=== PATIENT | female | born 1960 | race Caucasian/White ===

== ENCOUNTER 2017-03-04 08:31 | Inpatient (IN) | payer OTHER, MEDICAID ==
--- NOTE | 2017-03-04 08:30 | EDPHY ---
H & P HPI/ROS: CHIEF COMPLAINT: Altered mental status HISTORY OF PRESENT ILLNESS: This patient is a 56 year old female with history of diabetes and chronic bilateral foot wounds arriving emergently via EMS from [facility] for evaluation of altered mental status and possible ventricular tachycardia. Per EMS report, she was found on the floor this morning, unresponsive except for moaning with painful stimuli. She was last seen normal yesterday evening, and is generally awake, alert, and oriented. The patient stopped breathing spontaneously en route to the ambulance, and EMS crews administered 15 LPM O2 via bag valve mask. On exam, they noted a fentanyl patch on her left chest. They removed the fentanyl patch and and administered 2 doses of Narcan. She became more responsive after the Narcan and began breathing spontaneously and adequately. Vitals in transport were BP 168/125, HR 124 sinus tachycardia, BGL 297. She began breathing unassisted on arrival to the emergency department, but remains unresponsive to verbal stimuli, with nonverbal utterances. She is generally on 4 LMP O2 maintenance. HPI obtained primarily from [facility] nurse's phone report and EMS report. REVIEW OF SYSTEMS: Unobtainable due to patient's altered mental status. - Medical/Surgical History PMH: 1. Type II diabetes mellitus. 2. Chronic bilateral foot wounds. 3. Morbid obesity. 4. Hypertension 5. COPD 6. Chronic hypoxemic respiratory failure 7. Chronic kidney disease (baseline creatinine about 1.4) 8. Chronic pain, narcotic dependency. 9. Sarcoidosis, recent Proteus bacteremia (09/2016) - Social History Additional Social History: Lives at [facility]. No tobacco, alcohol, or illicit drug use. Formerly homeless. - Physical Exam Exam: General Appearance: eyes closed, agitated, yawning Eyes: Pupils equal and round, 3mm, no conjunctival pallor or injection ENT, Mouth: Mucous membranes dry Neck: Normal inspection Respiratory: Lungs are clear to auscultation anteriorly Cardiovascular: Regular tachycardia Gastrointestinal: Abdomen is obese, no apparent tenderness Neurological: Unresponsive to verbal stimuli common nonverbal, moves all extremities, strong throughout Skin: Warm and dry, pale Extremities: Bulky dressing on right foot and ankle Psychiatric: Unable to determine Constitutional: Initial Vital Signs Temperature (C) 38.8 C H 03/04/17 08:31 Heart Rate 150 H 03/04/17 08:31 Respiratory Rate 28 H 03/04/17 08:31 Blood Pressure 146/91 H 03/04/17 08:31 O2 Sat (%) 97 03/04/17 08:31 O2 Delivery Mode Oxymask O2 (L/minute) 101 Allergies/Adverse Reactions: No Known Allergies Allergy (Verified 11/26/16 04:59) Home Medications: Medication Instructions Recorded Acetaminophen [Tylenol 325mg (*)] 325 mg PO Q6 PRN 11/01/16 DULoxetine [Cymbalta 30 MG (*)] 30 mg PO BID 11/01/16 Gabapentin [Neurontin 300 MG (*)] 300 mg PO BID 11/01/16 HYDROmorphone HCL [Dilaudid 4 mg 10 mg PO TUTHSA PRN 11/01/16 (*)] Insulin Detemir [Levemir] 50 unit SQ DAILY 11/01/16 Levothyroxine [Synthroid 200 mcg 200 mcg PO DAILY 11/01/16 (*)] Losartan Potassium [Cozaar 25 mg 25 mg PO DAILY 11/01/16 (*)] Pregabalin [Lyrica 50mg (*)] 50 mg PO TID 11/01/16 clonazePAM [Klonopin (*)] 0.5 mg PO BID PRN 11/01/16 fentaNYL [Duragesic 75 MCG Patch 75 mcg TD Q72H 11/01/16 (*)] traZODone [traZODONE 50MG (*)] 50 mg PO HS 11/01/16 Furosemide [Lasix 20 MG (*)] 20 mg PO BID #60 tab 11/12/16 Alteplase [Cathflo Activase 2 mg 2 mg IVP DAILY PRN 03/04/17 (*)] Aspirin [Aspirin 81mg (*)] 81 mg PO DAILY 03/04/17 Bisacodyl [Dulcolax] 10 mg RC DAILY PRN 03/04/17 Calcium Carbonate [Tums 500MG (*)] 1,000 mg PO Q4H PRN 03/04/17 Diclofenac Sodium 1% [Voltaren Gel 2 gm TP QID 03/04/17 (*)] Gabapentin [Neurontin 400 MG (*)] 400 mg PO BID 03/04/17 HYDROmorphone HCL [Dilaudid 4 mg 8 mg PO Q4H PRN 03/04/17 (*)] Ibuprofen [Motrin (*)] 600 mg PO Q8H PRN 03/04/17 Insulin Detemir [Levemir] 63 unit SQ HS 03/04/17 Insulin Lispro [humALOG LISPRO 100 5 unit SC TIDMEAL 03/04/17 units/ml (*)] Insulin Lispro [humALOG LISPRO 100 5 unit SC TIDMEAL PRN 03/04/17 units/ml (*)] Ipratropium/Albuterol [Duoneb (*)] 3 ml IH Q6H PRN 03/04/17 Magnesium Hydroxide [Milk of 30 ml PO DAILY PRN 03/04/17 Magnesia] Nystatin Powder [Mycostatin Powder] 1 abi TP Q8H PRN 03/04/17 Omeprazole Magnesium [Prilosec Otc] 20 mg PO DAILY 03/04/17 Phenylephrine/Shk Lv/Mo/Pet,Wh 1 abi NH Q6H PRN 03/04/17 [Preparation H Oint] Polyethylene Glycol 3350 [Miralax 17 gm PO BID PRN 03/04/17 17 gm (*)] Promethazine HCl [Phenergan 25mg 25 mg PO BID PRN 03/04/17 (*)] Sennosides/Docusate Sodium 2 tab PO BID PRN 03/04/17 [Senna-Docusate Sodium Tablet] Medical Decision Making - Diagnostics EKG Interpretation: EKG interpreted by me reveals sinus tachycardia, rate 133, no ST/T changes. Interpretation: sinus tachycardia, otherwise normal EKG Imaging: I viewed and interpreted images myself ED Course/Re-evaluation: 08:31 Met EMS at bedside. This patient presents with fever and altered mental status, most likely secondary to sepsis and delirium, source to be determined. Narcan improved respiratory status, now tachypneic, maintaining O2 sat 100% on 15l O2, will wean O2 as tolerated. Plan for labs including CBC, BMP, lactic, bilirubin, PTPTT, UA, flu swab, and blood cultures. Plan to administer 650mg Tylenol per rectum. Plan for Negro catheter placement. 09:04 I-stat reviewed. Chest x-ray reviewed. Negative for evidence of focal pneumonia. 09:28 Lactic acid elevated at 3.8. Initiated sepsis protocol, meets severe sepsis protocol. Will administer fluids per protocol and repeat lactic acid. 09:30 Right foot bandage removed. There is an open wound on the lateral aspect of the foot, with surrounding erythema and warmth. A wound culture was drawn. This is the likely source of infection. In review of her past medical record, the abscess on the left lower extremity grew G/C strep, sensitive to ceftriaxone. For this reason, ceftriaxone 1 g IV given. 09:41 EKG shows sinus tachycardia, rate 133. SBP remained greater than 90 throughout her ED stay. Mentation has not improved. Continues to be unresponsive to verbal stimuli. This presentation is similar to past presentation of severe sepsis. I do not feel that neuro imaging is indicated at this point. 09:45 consulted with hospitalist service. Dr. Cabrales accepts admission to ICU. 10:15 Repeat lactic acid 1.4. Plan to discharge to floor. Differential Diagnosis: Differential diagnosis includes pyelonephritis, cholecystitis, influenza, cellulitis, pneumonia, abscess, meningitis. Critical Care Time: I spent a total of 40 minutes of critical care time in obtaining history via EMS /NH, performing a physical exam, bedside monitoring of interventions, collecting and interpreting tests and discussion with consultants but not including time spent performing procedures. - Data Points Laboratory Results: Laboratory Results 03/04/17 08:50 03/04/17 08:50 03/04/17 08:55 POC Hgb 9.5 gm/dL L gm/dL (12.6-16.3) POC Hct 28 % L % (38-47) POC Sodium 141 mEq/L mEq/L (134-144) POC Potassium 4.2 mEq/L mEq/L (3.3-5.0) POC Chloride 99 mEq/L mEq/L (97-110) POC BUN 46 mg/dL H mg/dL (7-23) POC Creatinine 1.8 mg/dL H mg/dL (0.6-1.0) POC Glucose 285 mg/dL H mg/dL (70-100) Microbiology Results: MICROBIOLOGY 03/04/17 08:50 Blood Blood Culture - Preliminary Streptococcus Pyogenes Grp A 03/04/17 08:50 Blood Blood Culture - Preliminary Streptococcus Pyogenes Grp A 03/04/17 08:50 Blood Blood Panel (PCR) - Final Strep Pyogenes Group A 03/04/17 09:30 Foot - Swab Gram Stain - Final 03/04/17 09:30 Foot - Swab Wound Culture - Preliminary Proteus Mirabilis MRSA Streptococcus Pyogenes Grp A 03/04/17 09:14 Urine,Catheterized Urine Culture - Preliminary Medications Given: Acetaminophen (Tylenol) 650 mg PO Q4 PRN PRN Reason: Pain, Mild/Fever, Can Take PO Stop: 08/31/17 10:33 Last Admin: 03/05/17 13:12 Dose: 650 mg Acetaminophen (Tylenol Rectal) 650 mg NH Q4 PRN PRN Reason: Pain, Mild/Fever,Can't Take PO Stop: 08/31/17 10:33 Last Admin: 03/04/17 22:27 Dose: 650 mg Aspirin (Aspirin) 81 mg PO DAILY [facility] Stop: 09/01/17 08:59 Last Admin: 03/05/17 11:17 Dose: 81 mg Clonazepam (Klonopin) 0.5 mg PO BID PRN PRN Reason: TEARFUL EPISODES Stop: 08/31/17 15:32 Last Admin: 03/05/17 11:16 Dose: 0.5 mg Diclofenac Sodium (Diclofenac Sodium 1% Gel) 2 gm TP QID [facility] Stop: 08/31/17 15:59 Last Admin: 03/05/17 12:27 Dose: 2 gm Duloxetine HCl (Cymbalta) 30 mg PO BID [facility] Stop: 08/31/17 20:59 Last Admin: 03/05/17 11:17 Dose: 30 mg Fentanyl (Duragesic) 75 mcg TD Q72H [facility] Stop: 03/15/17 13:59 Last Admin: 03/05/17 14:39 Dose: 75 mcg Gabapentin (Neurontin) 300 mg PO BID [facility] Stop: 08/31/17 20:59 Last Admin: 03/05/17 11:16 Dose: 300 mg Gabapentin (Neurontin) 400 mg PO BID [facility] Stop: 08/31/17 20:59 Last Admin: 03/05/17 11:16 Dose: 400 mg Hydromorphone HCl (Dilaudid) 8 mg PO Q4H PRN PRN Reason: CHRONIC PAIN Stop: 03/15/17 13:52 Last Admin: 03/05/17 14:38 Dose: 8 mg Sodium Chloride (Ns) 1,000 mls @ 150 mls/hr IV CONT [facility] Stop: 08/31/17 10:44 Last Admin: 03/04/17 11:58 Dose: 1,000 mls Ceftriaxone Sodium 2 gm/ (Dextrose) 50 mls @ 100 mls/hr IV DAILY JUDE PRN Reason: Protocol Stop: 04/04/17 09:29 Last Admin: 03/05/17 10:02 Dose: 50 mls Insulin Glargine (Lantus Syringe) 30 units SC HS [facility] Stop: 08/31/17 20:59 Last Admin: 03/04/17 22:13 Dose: 30 units Insulin Glargine (Lantus Syringe) 25 units SC DAILY [facility] Stop: 09/01/17 08:59 Last Admin: 03/05/17 12:28 Dose: Not Given Insulin Human Regular (Humulin R) 0 unit SC Q6H JUDE PRN Reason: Protocol Stop: 08/31/17 11:29 Last Admin: 03/05/17 11:31 Dose: 6 units Levothyroxine Sodium (Synthroid) 200 mcg PO DAILY [facility] Stop: 09/01/17 08:59 Last Admin: 03/05/17 11:16 Dose: 200 mcg Ondansetron HCl (Zofran) 4 mg IVP Q4 PRN PRN Reason: Nausea/Vomiting, Can't Take PO Stop: 08/31/17 10:33 Last Admin: 03/05/17 11:38 Dose: 4 mg Pantoprazole Sodium (Protonix) 40 mg PO DAILY [facility] Stop: 09/01/17 08:59 Last Admin: 03/05/17 11:16 Dose: 40 mg Pregabalin (Lyrica) 50 mg PO TID [facility] Stop: 08/31/17 15:59 Last Admin: 03/05/17 11:16 Dose: 50 mg Trazodone HCl (Trazodone) 50 mg PO HS [facility] Stop: 08/31/17 20:59 Last Admin: 03/04/17 22:14 Dose: Not Given Discontinued Medications Acetaminophen (Tylenol) 650 mg PO EDNOW ONE Stop: 03/04/17 08:41 Last Admin: 03/04/17 09:03 Dose: 650 mg Enoxaparin Sodium (Lovenox) 40 mg SC DAILY [facility] Stop: 09/01/17 08:59 Last Admin: 03/05/17 11:17 Dose: 40 mg Sodium Chloride (Ns) 1,000 mls @ 0 mls/hr IV ONCE ONE; Wide Open PRN Reason: Protocol Stop: 03/04/17 08:41 Last Admin: 03/04/17 09:03 Dose: 1,000 mls Sodium Chloride (Ns) 3,700 mls @ 7,400 mls/hr 30 ml/kg infuse over 30 min ( 3700 ml) IV EDNOW ONE PRN Reason: Protocol Stop: 03/04/17 09:51 Last Admin: 03/04/17 11:39 Dose: 3,700 mls Ceftriaxone Sodium/Dextrose (Rocephin 1 Gm (Premix)) 50 mls @ 100 mls/hr IV EDNOW ONE PRN Reason: Protocol Stop: 03/04/17 10:04 Last Admin: 03/04/17 09:50 Dose: 50 mls Vancomycin HCl 1.5 gm/ (Dextrose) 250 mls @ 166.667 mls/hr IV ONCE ONE Stop: 03/04/17 12:29 Last Admin: 03/04/17 11:39 Dose: 250 mls Meropenem 1 gm/ Sodium (Chloride) 120 mls @ 120 mls/hr IV Q8HRS JUDE PRN Reason: Protocol Stop: 04/03/17 11:59 Last Admin: 03/05/17 05:18 Dose: 120 mls Insulin Human Regular (Humulin R) 0 unit SC ACHS JUDE PRN Reason: Protocol Stop: 08/31/17 11:29 Last Admin: 03/04/17 12:54 Dose: 8 units Point of Care Test Results: 03/04/17 08:55 POC Sodium 141 POC Potassium 4.2 POC Chloride 99 POC BUN 46 H POC Creatinine 1.8 H POC Glucose 285 H Departure - Departure Disposition: [facility] Acute Clinical Impression: Cellulitis of foot, right, Severe sepsis Condition: Serious Report Scribed for: Arminda Ladd Report Scribed by: Joselyn Ghotra Date of Report: 03/04/17 Time of Report: 08:30 Physician Review and Approval Statement: 03/04/17 08:30 Portions of this note were transcribed by a medical practice administrator. I personally performed a history, physical exam, medical decision making, and confirmed accuracy of information the transcribed note.
[2017-03-04] MEDS ORDERED: NS 1,000 ML IV ONE (08:40)
[2017-03-04] MEDS ORDERED: ACETAMINOPHEN 325 MG TAB PO ONE (08:40)
[2017-03-04 09:07] LABS: % IMMATURE GRANULYOCYTES 1.1 % (0.0-1.1); ABSOLUTE IMMATURE GRANULOCYTES 0.14 10^3/uL (0.00-0.10); ADD DIFF? NO; ADD MORPH? NO; ADD SCAN? NO; ATYPICAL LYMPHOCYTE FLAG 0 (0-99); FRAGMENT RBC FLAG 0 (0-99); HEMATOCRIT 27.4 % (38.0-47.0); HEMOGLOBIN 8.6 g/dL (12.6-16.3); LEFT SHIFT FLG 20 (0-99); LIPEMIA HEMOLYSIS FLAG 80 (0-99); MEAN CELL HEMOGLOBIN 26.8 pg (27.9-34.1); MEAN CELL HEMOGLOBIN CONCENTR. 31.4 g/dL (32.4-36.7); MEAN CELL VOLUME 85.4 fL (81.5-99.8); MEAN PLATELET VOLUME 9.6 fL (8.7-11.7); PLATELET CLUMPS FLAG 0 (0-99); PLATELET COUNT 238 10^3/uL (150-400); RED BLOOD CELL COUNT 3.21 10^6/uL (4.18-5.33); RED CELL DISTRIBUTION WIDTH 14.5 % (11.5-15.2)
[2017-03-04 09:17] LABS: ANION GAP 17 mEq/L (8-16); BILIRUBIN,TOTAL 0.5 mg/dL (0.1-1.4); CALCIUM 9.2 mg/dL (8.5-10.4); CARBON DIOXIDE 26 mEq/l (22-31); CHLORIDE 98 mEq/L (97-110); CREATININE 1.6 mg/dL (0.6-1.0); GLOMERULAR FILTRATION RATE 33; GLUCOSE 282 mg/dL (70-100); POTASSIUM 4.3 mEq/L (3.5-5.2); SODIUM 141 mEq/L (134-144)
[2017-03-04 09:21] LABS: INR 1.1 (0.83-1.16); PROTIME(PATIENT) 14.1 SEC (12.0-15.0)
[2017-03-04 09:22] LABS: APTT 27.8 SEC (23.0-38.0)
[2017-03-04] MEDS ORDERED: NS IV ONE (09:22)
[2017-03-04 09:26] LABS: COLOR YELLOW; LEUKOCYTE ESTERASE,URINE NEGATIVE (NEGATIVE); NITRITE,URINE NEGATIVE (NEGATIVE)
--- NOTE | 2017-03-04 09:43 | CPEKG ---
Heart Rate: 133 RR Interval: 451 P-R Interval: 152 QRSD Interval: 76 QT Interval: 284 QTC Interval: 423 P [place]: 50 QRS [place]: 19 T Wave [place]: 70 EKG Severity - OTHERWISE NORMAL ECG - EKG Impression: SINUS TACHYCARDIA Electronically Signed By: Arminda Ladd 04-Mar-2017 15:02:15
[2017-03-04 09:59] LABS: LACGHOST ORDER
[2017-03-04 10:05] LABS: BACTERIA TRACE /hpf (NONE SEEN); MUCUS TRACE /lpf (NONE-1+)
[2017-03-04] MEDS ORDERED: VANCOMYCIN HCL/NORMAL SALINE 250 ML IV ONE (10:32)
[2017-03-04] MEDS ORDERED: D50W 25 GM/50 ML SYR IVP PRN (10:36)
[2017-03-04] MEDS ORDERED: VANCOMYCIN 1.5 GM in D5W 250 ML IV ONE (11:00)
[2017-03-04] MEDS ORDERED: INSULIN REGULAR HUMAN 100 UNIT/ML SC SCH (11:30)
[2017-03-04] MEDS ORDERED: LIDOCAINE 1% 300 MG/30 ML SDV ONE (11:43)
[2017-03-04 11:44] LABS: MIXED VENOUS O2 SATURATION 68 % (65-75)
[2017-03-04] MEDS ORDERED: NA BICARBONATE 50 MEQ/50 ML VIAL ONE (11:44)
[2017-03-04] MEDS: NS 1,000 ML IV SCH (11:58)
[2017-03-04] MEDS: MEROPENEM 1 GM in NS 100 ML IV SCH ×3 (12:40→22:15)
[2017-03-04 12:54] LABS: MIXED VENOUS O2 SATURATION 72 % (65-75)
--- NOTE | 2017-03-04 14:43 | GHP ---
[f rep st] HISTORY AND PHYSICAL DATE OF ADMISSION: 03/04/2017 CHIEF COMPLAINT: Altered mental status. HISTORY OF PRESENT ILLNESS: The patient is a 56-year-old female, resident of [facility], who was found unresponsive on the floor moaning at [facility] this morning. She was last seen last night with a normal mental status. EMS was called. On route in the ambulance, she stopped breathing and r equired 15 L of oxygen, got a dose of Narcan and her fentanyl patch was removed, and she had return o f spontaneous respirations. She remains unresponsive at this time and no further history is availabl e. They did take off her right foot bandage in the emergency room and thought that her open wound on her right heel may be infected and a culture was obtained. PAST MEDICAL HISTORY: 1. Diabetes type 2. 2. Charcot joints. 3. Chronic calcaneal wound with previous osteomyelitis. 4. Morbid obesity. 5. Hypertension. 6. COPD 4 L. 7. Chronic kidney disease. Baseline creatinine 1.3. 8. Continuous narcotic dependency. 9. Sarcoidosis. MEDICATIONS: Please see computerized record for full detailed list. ALLERGIES: No known drug allergies. SOCIAL HISTORY: She lives in [facility]. Further social history is unavailable at this time due to patient's obtundation. REVIEW OF SYSTEMS: Unobtainable due to obtundation. FAMILY HISTORY: Unobtainable due to obtundation. PHYSICAL EXAMINATION: GENERAL: This is a well-developed, well-nourished female in no acute distress . She looks very ill, lying in bed, unresponsive, breathing heavily, high fever. Arouses only secon ds to a deep sternal rub. VITALS: Temp is 40.4, pulse 130, blood pressure 98/57, saturating 97% on 5 L. HEENT: Eyes: Normal conjunctivae. Pupils react to light. ENT: Normal ears, nose. Unable t o assess hearing. Oropharynx is dry. NECK: Trachea midline. No thyromegaly. CHEST: Increased re spiratory effort. Respiratory rate is 42. Lungs are clear to auscultation bilaterally. CARDIOVASCU LAR: Tachycardic, no murmur, no lower extremity edema. ABDOMEN: Soft, nontender. No hepatomegaly. SKIN: Her right calcaneal wound looks quite good. It has a clean base. There is absolutely no dr coffey. The surrounding skin is without erythema or warmth. MUSCULOSKELETAL: No cyanosis or clubbi ng. Strength decreased throughout, consistent with obtundation cranial nerves also unable to assess as well as sensation. PSYCH: Obtunded. Arouses only seconds to deep sternal rub, but does appear t o move all extremities briefly. There is no posturing. LABS: White count 12.8, hematocrit 27.4, platelets 238. Sodium 141, potassium 4.3, chloride 98, bic arb 26, BUN 49, creatinine 1.6, glucose 282. Urinalysis is negative. Lactate initially 2.8, coming down to 1.7 after hydration. EKG viewed by me. My personal interpretation is sinus tachycardia. Ch est x-ray is negative. MEDICAL RECORDS REVIEW: She has been hospitalized here many times, typically related to infection st emming from her foot wound including previous osteomyelitis. ASSESSMENT/PLAN: 1. Severe sepsis. The patient is critically ill. Although her blood pressure is currently still st able, she is extremely toxic appearing and being admitted to intensive care unit. She has extraordin arily high fever and completely unresponsive. Blood cultures are pending. I started her on empiric vancomycin and meropenem. I have spoken with Dr. Blue, who knows her well. Her lactate is improvi ng after hydration. Source of infection is unclear. Chest x-ray and urinalysis are negative. Her f oot wound looks actually quite good with a clean base. No drainage. No evidence of surrounding cell ulitis. According to Dr. Blue, however, she has become septic from this foot wound many times in t he past despite the wound itself not looking terribly bad, so it still is considered as a possible so urce. Given her severe altered mental status and persistent extraordinarily high fever without a maureen ar source, I do feel obliged to do a lumbar puncture to rule out acute bacterial meningitis. We will check a head CT prior to lumbar puncture. She has received her sepsis fluid bolus and will continue intravenous fluid at a good rate. 2. [id number] respiratory failure status post acute respiratory arrest. She did respond to Na rcan. She is now breathing just fine on her own. It is unclear to what degree this was narcotics ve rsus acute infection. 3. Metabolic encephalopathy clearly due to infection, although it is unclear if it is secondary to s epsis versus a primary central nervous system infection. As discussed above, head CT and lumbar punc ture pending. 4. Charcot foot deformity with chronic calcaneal foot wound. Previous osteomyelitis at this site. Rule out infection as above. Wound Care to consult. 5. Diabetes type 2, poorly controlled in the past. We will put her on insulin sliding scale. 6. Morbid obesity. Body mass index 43. 7. Chronic obstructive pulmonary disease. I suspect she may also have an element of obesity hypoven tilation syndrome. She is back to her baseline 4 L. 8. [id number] renal failure. Baseline creatinine 1.3. Anticipate this will improve with intr avenous fluids. 9. Continuous narcotic dependency. We will continue to hold narcotics due to respiratory depression as above. CODE STATUS: Full unless you get documentation from Keisha Coulter stating otherwise. ADMISSION: To inpatient. She is critically ill. Clearly greater than 2 midnights will be required. DEEP VENOUS THROMBOSIS PROPHYLAXIS: She is high risk. Will place her on subcu Lovenox. Critical care time spent is 1 hour. /[id number]/MODL
[2017-03-04 15:08] LABS: CSF APPEARANCE CLEAR (CLEAR); CSF COLOR COLORLESS (COLORLESS); CSF SUPERNATANT COLORLESS (COLORLESS); WBC, CSF 0 /mm3 (0-5)
[2017-03-04 15:13] LABS: PROTEIN, CSF 75 mg/dL (12-60)
[2017-03-04 16:11] LABS: BICARBONATE 26 mEq/L (22-26); MEASURED OXYGEN SATURATION 98 % (92-95); PCO2 45 mmHg (34-38); PO2 109 mmHg (65-75); TCO2 27 mEq/L (23-27)
[2017-03-04] MEDS: PREGABALIN 50 MG CAP PO SCH ×2 (16:24→23:19)
[2017-03-04] MEDS: DICLOFENAC SODIUM 1% 100 GM GEL TP SCH ×2 (16:24→22:42)
[2017-03-04] MEDS: INSULIN REGULAR HUMAN 100 UNIT/ML SC SCH ×2 (17:43→22:27)
[2017-03-04] MEDS: ACETAMINOPHEN 650 MG SUPP PR PRN ×2 (17:43→22:27)
--- NOTE | 2017-03-04 19:58 | GCON ---
[f rep st] CONSULTATION INFECTIOUS DISEASE CONSULTATION DATE OF CONSULTATION: 03/04/2017 REFERRING PHYSICIAN: Ame Banda MD REASON FOR CONSULTATION: Sepsis. HISTORY OF PRESENT ILLNESS: A 56-year-old woman with a history of diabetes and chronic right lower extremity diabetic ulcer associated with Charcot foot, who is well known to the ID service with 5 episodes of bacteremia since September of 2014 with multiple bouts interceded of lower extremity cellulitis as well. The patient was transferred emergently to [facility] from [facility] with altered mental status and tachycardia. In the EMS report, she was found down on the floor unresponsive except for moaning to painful stimuli. She is maintained on 4 L O2 chronically, but required 15 L to get her SATs up. They administered 2 doses of Narcan with minimal response. She was hypertensive and tachycardic in transport with an elevated blood glucose level. Additional history is not available as patient is remains altered. As a part of her workup, the patient underwent a head CT which showed no focal acute abnormalities and subsequently a lumbar puncture due to confusion which had a cell count of 0. The patient was given 1 dose of ceftriaxone and subsequently started on meropenem and IV vancomycin. PAST MEDICAL HISTORY: 1. Type 2 diabetes, chronic lower extremity foot wounds, right worse than left. 2. Morbid obesity. 3. Hypertension. 4. COPD with chronic hypoxic respiratory failure, chronic renal insufficiency, baseline creatinine 1.4, chronic narcotic dependency, multiple episodes of bacteremia including group C/G Streptococcus October of 2016, Proteus in September of 2016, actinotignum schaalii in July 2016, high-grade Staph epidermidis bacteremia February of 2016, group C/G bacteremia in September of 2014. 5. Osteomyelitis of the right calcaneus. PAST SURGICAL HISTORY: C section, cholecystectomy, lymph node revision and tonsillectomy. SOCIAL HISTORY: She lives at [facility] chronically, formally homeless. No tobacco, alcohol, or illicit drug use. FAMILY HISTORY: Noncontributory. REVIEW OF SYSTEMS: Not obtainable due to sepsis. PHYSICAL EXAM: VITAL SIGNS: BP 130/60, heart rate 117, respiratory rate 22-37 on 5 L O2 with a SAT of 100%, temperature 39.4. GENERAL: This is a pale obese woman lying in bed who opens her eyes to verbal stimulation, but other than that is unresponsive. She is intermittently snoring. HEENT: Oropharynx is extremely dry. Poor dentition. NECK: Supple. No meningismus. CARDIOVASCULAR : Tachycardic. Regular rate. CHEST: Clear to auscultation bilaterally. ABDOMEN: Morbidly obese, soft, nontender. EXTREMITIES: Right lower extremity with a chronic fairly well healed wound with granulation tissue. One area of fluctuance at the 10 o'clock position without drainage. She has faint cellulitis very consistent with erysipelas to the knee with associated warmth ALLERGIES: NKDA. IMMUNIZATIONS: The patient received a Pneumovax in June of 2011. MEDICATIONS: Tylenol, aspirin 81 mg, Klonopin 0.5 mg p.r.n., diclofenac, Cymbalta, Lovenox, Neurontin, insulin, meropenem 1 g IV q (February 2016), Zofran, Lyrica, trazodone, and saline. She has received 4 L of IV fluids since admission. LABORATORY DATA: Creatinine 1.6. White count 12.8, hematocrit 27, platelets of 238. Influenza PCR was negative. CSF: WBC 0, RBC 0, glucose 141, total protein 75. IMAGING: CT head as per HPI. Chest x-ray showed no focal infiltrates with poor inspiratory effort. ASSESSMENT: This is a 56-year-old woman with recurrent multiple bouts of sepsis due to bacteremia with source of her right lower extremity. Severe Sepsis today likely due to recurrent right lower extremity cellulitis, chronic wound and possible underlying foot abscess or OM. 1. Severe Sepsis 2. RLE cellulitis 3. Chronic diabetic foot ulcer R heal 4. Acute on chronic renal insufficiency 5. Poorly controlled DM RECOMMENDATIONS: 1. Reasonable to start with broad coverage with meropenem until further ID assessed. The patient, in the past with 2 episodes of streptococcal bacteremia and 1 with Staph epi. Therefore, coverage with Merrem and vancomycin until additional data is assessed is appropriate. Will check a random vancomycin level with a.m. labs in light of worsening renal insufficiency. 2. Will discuss possible aspiration of fluctuant area with surgical team vs imaging. 3. Follow blood and wound cultures. Thank you for this consultation. Will continue to follow on a daily basis. /[id number]/MODL MTDD
[2017-03-04] MEDS ORDERED: INSULIN DETEMIR SQ SCH (21:00)
[2017-03-04] MEDS ORDERED: INSULIN GLARGINE 100 UNITS/ML SYRINGE SC SCH ×2 (21:00)
[2017-03-04] MEDS: GABAPENTIN 400 MG CAP PO SCH (22:14)
[2017-03-04] MEDS: GABAPENTIN 300 MG CAP PO SCH (22:14)
[2017-03-04] MEDS: traZODone 50 MG TAB PO SCH (22:14)
[2017-03-04] MEDS: DULoxetine 30 MG CAP PO SCH (22:14)
[2017-03-05] MEDS: INSULIN REGULAR HUMAN 100 UNIT/ML SC SCH ×4 (05:17→23:58)
[2017-03-05] MEDS: MEROPENEM 1 GM in NS 100 ML IV SCH (05:18)
[2017-03-05] MEDS: DICLOFENAC SODIUM 1% 100 GM GEL TP SCH ×4 (05:19→20:06)
[2017-03-05 05:28] LABS: % IMMATURE GRANULYOCYTES 0.8 % (0.0-1.1); ABSOLUTE IMMATURE GRANULOCYTES 0.09 10^3/uL (0.00-0.10); ADD DIFF? NO; ADD MORPH? NO; ADD SCAN? NO; ATYPICAL LYMPHOCYTE FLAG 0 (0-99); FRAGMENT RBC FLAG 0 (0-99); HEMATOCRIT 23.5 % (38.0-47.0); HEMOGLOBIN 7.3 g/dL (12.6-16.3); LEFT SHIFT FLG 70 (0-99); LIPEMIA HEMOLYSIS FLAG 80 (0-99); MEAN CELL HEMOGLOBIN 26.8 pg (27.9-34.1); MEAN CELL HEMOGLOBIN CONCENTR. 31.1 g/dL (32.4-36.7); MEAN CELL VOLUME 86.4 fL (81.5-99.8); MEAN PLATELET VOLUME 9.5 fL (8.7-11.7); PLATELET CLUMPS FLAG 0 (0-99); PLATELET COUNT 192 10^3/uL (150-400); RED BLOOD CELL COUNT 2.72 10^6/uL (4.18-5.33); RED CELL DISTRIBUTION WIDTH 14.6 % (11.5-15.2)
[2017-03-05 06:22] LABS: ALANINE AMINOTRANSFERASE 28 IU/L (9-52); ALBUMIN 2.7 g/dL (3.5-5.0); ALKALINE PHOSPHATASE 69 IU/L (38-126); ANION GAP 9 mEq/L (8-16); ASPARTATE AMINOTRANSFERASE 31 IU/L (14-46); BILIRUBIN,TOTAL 0.4 mg/dL (0.1-1.4); BILIRUBIN-CONJUGATED 0.3 mg/dL (0.0-0.5); BILIRUBIN-UNCONJUGATED 0.1 mg/dL (0.0-1.1); CALCIUM 7.9 mg/dL (8.5-10.4); CARBON DIOXIDE 25 mEq/l (22-31); CHLORIDE 108 mEq/L (97-110); CREATININE 1.4 mg/dL (0.6-1.0); GLOMERULAR FILTRATION RATE 39; GLUCOSE 201 mg/dL (70-100); POTASSIUM 3.9 mEq/L (3.5-5.2); SODIUM 142 mEq/L (134-144); TOTAL PROTEIN 6.2 g/dL (6.3-8.2)
[2017-03-05] MEDS ORDERED: INSULIN GLARGINE 100 UNITS/ML SYRINGE SC SCH ×2 (09:00)
[2017-03-05] MEDS ORDERED: NON-FORMULARY NEW DRUG (Insulin Detemir [Levemir] 50 UNIT) SQ SCH (09:00)
[2017-03-05] MEDS ORDERED: ENOXAPARIN 40 MG/0.4 ML SYR SC SCH (09:00)
--- NOTE | 2017-03-05 09:43 | PCMIDPN ---
Assessment/Plan: #Sepsis secondary RLE cellulitis - possible heal abscess/deeper infection. Persistent fever could support deeper nidus of infection. Sepsis generally better today: Much more awake today but remains confused, tachycardia resolved, Cr back to baseline. 6th episode of bacteremia since 2014 -suspect predisposition underlying DM + chronic wound on heal --narrow antibiotics ceftriaxone 2gm IV daily, does not require renal dosing. --consult surgery --repeat blood cx after 48 hours antibiotics --check immunoglobulins # GNR in wound likely colonizer Med vancomycin 1.5gm x1 meropenem 1gm IV q8 microbiology 03/04 blood cx /2 GAS 03/04 wound cx NLF GNR 03/05/17 10:21 Subjective: no significant skin breakdown on back side Objective: Vital Signs Temp Pulse Resp BP Pulse Ox 38.7 C H 88 14 134/54 H 98 03/05/17 08:00 03/05/17 08:00 03/05/17 08:00 03/05/17 08:00 03/05/17 08:00 Microbiology 03/04/17 11:27 Gram Stain - Final Cerebral Spinal Fluid Laboratory Results 03/05/17 05:00 03/05/17 05:00 03/04/17 03/05/17 03/06/17 05:59 05:59 05:59 Intake Total 7334 Output Total 2650 Balance 4684 - Physical Exam General Appearance: alert, obese, toxic EENT: pale conjunctiva, dry mucous membranes Respiratory: coarse breath sounds, No accessory muscle use Neck: supple Cardiac/Chest: regular rate, rhythm Extremities: other (Charcot foot, R heal ulcer with fair granulation tissue in base, ?fluctuant area at 11 oclock less so today (report that some purulence came out), erythema in stocking distribution RLE,less intense today, erythema past lines drawn yesterday - no worsening today) Peripheral Pulses: 2+: dorsalis-pedis (R), dorsalis-pedis (L) Abdomen: non-tender, soft Skin: pallor, No rash Neuro/Psych: alert, confused - Time Spent With Patient Time Spent with Patient: greater than 25 minutes Time Spent with Patient: Greater than 25 minutes spent on this patients care, greater than 50% of time spent counseling, educating, and coordinating care regarding the above mentioned plan. ICD10 Worksheet Patient Problems: Problems Problem Status Onset Cellulitis of foot, right Acute Severe sepsis Acute Abscess of left leg Acute Altered mental status Acute Anemia Acute Cellulitis in diabetic foot Acute Cellulitis of lower extremity Acute Failure to thrive Acute Fever Acute Lower limb ulcer, heel or midfoot Acute MRSA (methicillin resistant Staphylococcus aureus) Acute 10/10/14 Osteomyelitis of ankle or foot, right, acute Acute Sepsis Acute Uremia Acute
[2017-03-05] MEDS: cefTRIAXone 2 GM in D5W 50 ML IV SCH (10:02)
[2017-03-05] MEDS: GABAPENTIN 300 MG CAP PO SCH ×2 (11:16→20:08)
[2017-03-05] MEDS: PANTOPRAZOLE SODIUM 40 MG TAB PO SCH (11:16)
[2017-03-05] MEDS: LEVOTHYROXINE 200 MCG TAB PO SCH (11:16)
[2017-03-05] MEDS: PREGABALIN 50 MG CAP PO SCH ×3 (11:16→20:29)
[2017-03-05] MEDS: clonazePAM 0.5 MG TAB PO PRN (11:16)
[2017-03-05] MEDS: GABAPENTIN 400 MG CAP PO SCH ×2 (11:16→20:08)
[2017-03-05] MEDS: ASPIRIN 81 MG CHEWABLE TAB PO SCH (11:17)
[2017-03-05] MEDS: DULoxetine 30 MG CAP PO SCH ×2 (11:17→20:06)
[2017-03-05] MEDS: ONDANSETRON 4 MG/2 ML VIAL IVP PRN ×2 (11:38→15:40)
[2017-03-05] MEDS: ACETAMINOPHEN 325 MG TAB PO PRN ×2 (13:12→20:06)
--- NOTE | 2017-03-05 14:05 | WOCRNPDOC ---
WOCRN Advanced Assessment Note - Skin Integrity Problem, Advanced Assess Right Heel Dressing Type: Abdominal Pads, Gauze, Kerlix Dressing Description: Intact Exudate Amount: Minimal Exudate Color: Clear, Yellow Exudate Characteristic(s): Serous Integumentary Issue Intervention: Dressing Applied Demario Wound Tissue: Ecchymotic (along lateral demario-wound), Calloused Demario Wound Swelling: Mild Wound Bed Color: Red Wound Bed Constitution: Smooth Tissue (non-granulating) Wound Edges: Irregular Site Odor: None Site Measurement - Head-to-Toe Length X Width X Depth (cm): 5.0pmu1mmb7.5cm Pressure Injury Stage: Stage 3 Pressure Injury Present on Admit: Yes Skin Integrity Problem Comment: Patient is well-known to wound care, and has been seen during previous hospitalizations for this chronic wound. Of significance is that wound dimensions are larger than assessments during prior stays: last measurement inpatient was 5cmx6.5cmx0.5cm on 11/01/16. Query wound infection, though there is currently no odor or demario-wound erythema. Though no bone is visible/palpable, given location it has potential for osteo. There is pale, non-granulating tissue throughout the wound bed, avascular in appearance. There is also a thin rim of ecchymosis along the proximal/lateral edge of the wound; this area observed pressing into mattress, and is a potential site of pressure. Applied Hydrofera Blue Ready foam to wound bed, followed by ABD, and Kerlix. In addition, before and after school daycare worker Ruth placed patient in bilateral off-loading heel boots, which is appropriate at this time. Wound care will continue to follow patient during her stay, following up next on Thursday 03/08.
[2017-03-05] MEDS: HYDROmorphONE/DILAUDID 4 MG TAB PO PRN ×2 (14:38→20:05)
[2017-03-05] MEDS: fentaNYL 75 MCG PATCH TD SCH (14:39)
[2017-03-05] MEDS: HYDROmorphONE/DILAUDID 1 MG/ML INJ IVP PRN ×2 (15:40→23:57)
--- NOTE | 2017-03-05 15:43 | PDINTPN ---
[facility] Progress Note Assessment/Plan: Assessment: * Severe sepsis: Group a strep on blood cultures. Improved, with normalized lactate, good renal function, and improved mental status, and stable blood pressure. Remains tachycardic. * MRSA in wound. Patient has been placed on contact isolation. Dr. Thomas consulted, MRI ordered. Antibiotics been narrowed to ceftriaxone. * ANGELO. Use BiPAP yesterday and will use p.r.n. * Narcotic dependence. Currently being held Plan: Continue ceftriaxone. Await MRI. Use BiPAP with sleep. May benefit from evaluation for sleep apnea as an outpatient in order to resume CPAP therapy. 03/05/17 15:46 Subjective: Feels better, is more alert. Denies pain. Dyspnea is at baseline. Objective: Vital Signs Temp Pulse Resp BP Pulse Ox 38.1 C 108 H 20 138/78 H 96 03/05/17 15:00 03/05/17 15:00 03/05/17 15:00 03/05/17 15:00 03/05/17 15:00 Microbiology 03/04/17 11:27 Gram Stain - Final Cerebral Spinal Fluid Laboratory Results 03/05/17 05:00 03/05/17 05:00 03/04/17 03/05/17 03/06/17 05:59 05:59 05:59 Intake Total 7334 240 Output Total 2650 900 Balance 4684 -660 PT 14.1 SEC (12.0-15.0) 03/04/17 08:50 INR 1.10 (0.83-1.16) 03/04/17 08:50 Microbiology 03/04/17 09:30 Foot - Swab Gram Stain - Final 03/04/17 08:50 Blood Blood Panel (PCR) - Final Strep Pyogenes Group A 03/04/17 09:30 Foot - Swab Wound Culture - Preliminary Proteus Mirabilis MRSA Streptococcus Pyogenes Grp A 03/04/17 08:50 Blood Blood Culture - Preliminary Streptococcus Pyogenes Grp A 03/04/17 08:50 Blood Blood Culture - Preliminary 03/04/17 08:50 Blood Streptococcus Pyogenes Grp A Physical Exam - Physical Exam General Appearance: alert, mild distress EENT: normal ENT inspection Neck: normal inspection Respiratory: lungs clear Cardiac/Chest: edema (1+), tachycardia Abdomen: normal bowel sounds, non-tender, soft Skin: normal color, warm/dry Extremities: other (no drainage from right calcaneal wound. Lower leg erythema improved. ) Neuro/Psych: alert, normal mood/affect, oriented x 3 ICD10 Worksheet Patient Problems: Problems Problem Status Onset Cellulitis of foot, right Acute Severe sepsis Acute Abscess of left leg Acute Altered mental status Acute Anemia Acute Cellulitis in diabetic foot Acute Cellulitis of lower extremity Acute Failure to thrive Acute Fever Acute Lower limb ulcer, heel or midfoot Acute MRSA (methicillin resistant Staphylococcus aureus) Acute 10/10/14 Osteomyelitis of ankle or foot, right, acute Acute Sepsis Acute Uremia Acute
--- NOTE | 2017-03-05 15:47 | HOSPPROG ---
Hospitalist Progress Note Assessment/Plan: * Severe sepsis - foot wound as source -Group A Strep bacteremia - IV Ceftriaxone -checking immunoglobulins given frequent severe sepsis admissions * Chronic calcaneus wound right foot -concern for associated abscess - MRI pending -Dr. Thomas following * Charcot foot deformity * Metabolic encephalopathy - improved -taking PO, asking for chronic pain meds * Respiratory arrest - suspect due to encephalopathy + narcs -watch closely as we re-initiate usual pain regimen * DM II, uncontrolled -Lantus -check HgA1c * Morbid obesity - BMI 45 * ARF on CKD - baseline creatinine 1.3 * MRSA/Proteus in wound -d/w Dr. Blue - not pathogen - DC vanco -isolation * Acute on chronic respiratory failure * COPD - 4L baseline * Chronic pain with continuous narcotic dependency Subjective: Waking up. Asking for her pain meds Objective: Vital Signs Temp Pulse Resp BP Pulse Ox 38.1 C 108 H 20 138/78 H 96 03/05/17 15:00 03/05/17 15:00 03/05/17 15:00 03/05/17 15:00 03/05/17 15:00 Microbiology 03/04/17 11:27 Gram Stain - Final Cerebral Spinal Fluid Laboratory Results 03/05/17 05:00 03/05/17 05:00 03/04/17 03/05/17 03/06/17 05:59 05:59 05:59 Intake Total 7334 240 Output Total 2650 900 Balance 4684 -660 PT 14.1 SEC (12.0-15.0) 03/04/17 08:50 INR 1.10 (0.83-1.16) 03/04/17 08:[address] : negative - Physical Exam Constitutional: no apparent distress, appears nourished, not in pain Cardiovascular: regular rate and rhythym, no murmur, rub, or gallop Respiratory: no respiratory distress, no rales or rhonchi, clear to auscultation Gastrointestinal: normoactive bowel sounds, soft, non-tender abdomen, no palpable masses Skin: other (right calcalneal ulcer looks the same, minimal drainage, possible fluctuance around wound, some erythema extending toward knee) Neurologic: weakness Psychiatric: encephalopathic, other (arouses easily, still a little sleepy), No anxious, No agitated ICD10 Worksheet Patient Problems: Problems Problem Status Onset Cellulitis of foot, right Acute Severe sepsis Acute Abscess of left leg Acute Altered mental status Acute Anemia Acute Cellulitis in diabetic foot Acute Cellulitis of lower extremity Acute Failure to thrive Acute Fever Acute Lower limb ulcer, heel or midfoot Acute MRSA (methicillin resistant Staphylococcus aureus) Acute 10/10/14 Osteomyelitis of ankle or foot, right, acute Acute Sepsis Acute Uremia Acute
--- NOTE | 2017-03-05 16:11 | GCON ---
[f rep st] CONSULTATION PULMONARY/CRITICAL CARE CONSULTATION DATE OF CONSULTATION: 03/04/2017 REFERRING PHYSICIAN: Ame Banda MD REASON FOR REFERRAL: Evaluation and management of hypercapnia and sepsis. HISTORY OF PRESENT ILLNESS: The patient is a 56-year-old woman with multiple chronic medical problem s, who is a resident at [facility]. She was apparently in her usual state of health yesterday, but today was found unresponsive on the floor, moaning. En route to the hospital she stop ped breathing and required 15 L of oxygen. She was given Narcan and a fentanyl patch, and had return of spontaneous respirations. She was somewhat more responsive in the emergency department and throu gh admission, but is responding only to noxious stimuli, with minimal response to loud voice, at the time of my visit. She is unable to give any other further history. PAST MEDICAL HISTORY: 1. Type 2 diabetes. 2. Chronic calcaneal wound with previous osteomyelitis. 3. Morbid obesity. 4. Hypertension. 5. COPD on supplemental oxygen. 6. History of sleep apnea, previously diagnosed and treated with CPAP, which the patient is no longe r using. 7. Chronic kidney disease with baseline creatinine of 1.3. 8. Narcotic dependency. 9. Prior history of sarcoidosis. MEDICATIONS: DuoNeb, Phenergan, Motrin, Dilaudid p.o. p.r.n., Dulcolax, insulin, gabapentin, omepraz ole, aspirin, nystatin. ALLERGIES: None. SOCIAL HISTORY: The patient lives at [facility]. She is a nonsmoker and no alcohol use. FAMILY HISTORY: Unobtainable. REVIEW OF SYSTEMS: Unobtainable due to obtundation. PHYSICAL EXAMINATION: GENERAL: The patient is obtunded, responding weakly to loud voice and withdra wing to noxious stimuli. She is morbidly obese. VITAL SIGNS: Blood pressure is 136/55, with a hear t rate of 118. She is afebrile. Oxygen saturations are 100% on 5 L oxygen mask. Temperature is 39. 4. HEENT: Normocephalic and atraumatic. No icterus. NECK: No adenopathy. Trachea is midline. C HEST: Clear to auscultation. CARDIAC: Regular, tachycardia, without murmur. ABDOMEN: Soft, nonte nder. Bowel sounds are present. EXTREMITIES: No clubbing or cyanosis. She has 1+ lower extremity edema. She has a calcaneal wound ulcer on the right. There is some fluctuance anterior to this, it apparently drained a bit of pus earlier with palpation. LABORATORY: White blood count is 12.8, with a hemoglobin of 8.6. Chemistry group shows a creatinine of 1.8, a glucose is 285. A blood gas shows a lactate of 1.1, down from 3.8. Arterial blood gas sh ows a pH of 7.39, with a pO2 of 109, a CO2 of 45, and a bicarbonate of 26. A chest x-ray, is somewha t limited by the patient's size, but shows no focal infiltrates. A urinalysis shows just 1 to 3 whit e blood cells. ASSESSMENT: 1. Severe sepsis. The patient has tachycardia and elevated white blood count with fever, most likel y source is her leg wound. The patient has been started empirically on vancomycin and meropenem. Sh kai has been given several liters of IV fluids as per the sepsis protocol. 2. Hypercapnic respiratory failure. There is likely a chronic component to this, as her pH is kaylie l, despite the elevated CO2. This is likely due to a combination of obesity, narcotics, and untreate d sleep apnea. 3. Encephalopathy. This is likely due to sepsis, although, narcotics could also play a role. 4. Type 2 diabetes. This is poorly controlled in the past, and she has an elevated blood sugar now. 5. Chronic obstructive pulmonary disease. 6. History of sarcoid in the past. PLANS: 1. Empiric antibiotics as above. Continue on sepsis protocol. I will place her on BiPAP. If she w orsens from her sepsis, she may potentially require intubation and mechanical ventilation, if she valera s not respond to Narcan. 2. Follow renal function. /[id number]/MODL
--- NOTE | 2017-03-05 16:34 | ASMTCMCOM ---
CM Note CM Note Notes: 56 yo female admitted from [facility] with severe sepsis, AMS, Chronic foot wound with osteomyelitis. She has a HX of Charcot foot deformity, morbid obesity, sarcoidosis, narc dependency, COPD, HTN. Patient will return to [facility] on discharge. Date Signed: 03/05/2017 04:33 PM Electronically Signed By:Lalita Gomez LCSW
[2017-03-05] MEDS ORDERED: GADOBUTROL 10 ML VIAL IVP ONE (16:42)
[2017-03-05] MEDS: NS 1,000 ML IV SCH ×2 (18:08→23:58)
--- NOTE | 2017-03-05 18:11 | GCON ---
[f rep st] CONSULTATION DATE OF CONSULTATION: 03/05/2017 REQUESTING PHYSICIAN: Fany Blue MD CHIEF COMPLAINT: Bacteremia. HISTORY OF PRESENT ILLNESS: The patient is a 56-year-old woman, who was recently admitted due to alt ered mental status. She was found to be bacteremic. She has a chronic wound on her right foot, and I was asked if further imaging would be of benefit. PAST MEDICAL HISTORY: Obtained from chart: Diabetes type 2, Charcot joints, chronic wound on the pl [place] surface of the right foot, obesity, hypertension, COPD, chronic kidney disease, chronic narcoti c-dependency, and sarcoid. ALLERGIES: No known drug allergies. SOCIAL HISTORY: She lives in [facility], REVIEW OF SYSTEMS: Difficult to obtain as she is concerned about watching football. FAMILY HISTORY: Noncontributory. PHYSICAL EXAMINATION: CONSTITUTIONAL: Well-nourished woman lying on bed in ICU. She is watching fo otball. HEENT: Normocephalic. No otorrhea. No rhinorrhea. Mucous membranes moist. Pupils equal and round. EXTREMITIES: There is a wound on the plantar aspect of her right foot that has pale granulation tiss ue at the base. She has a Charcot joint. There is no erythema. IMPRESSION AND PLAN: A 56-year-old admitted for severe sepsis. The foot is a likely nidus. I recom mend that she have an MRI of her foot as, if there is osteomyelitis, then I believe this would best b e dealt with orthopedics or podiatry. I will be on standby and await results of MRI. /[id number]/MODL
[2017-03-05] MEDS: ENOXAPARIN 40 MG/0.4 ML SYR SC SCH (20:06)
[2017-03-05] MEDS: traZODone 50 MG TAB PO SCH (20:07)
[2017-03-05] MEDS: INSULIN GLARGINE 100 UNITS/ML SYRINGE SC SCH (20:28)
[2017-03-06] MEDS: HYDROmorphONE/DILAUDID 1 MG/ML INJ IVP PRN (04:23)
[2017-03-06] MEDS: ONDANSETRON 4 MG/2 ML VIAL IVP PRN ×3 (04:24→22:08)
[2017-03-06 05:31] LABS: % IMMATURE GRANULYOCYTES 0.5 % (0.0-1.1); ABSOLUTE IMMATURE GRANULOCYTES 0.04 10^3/uL (0.00-0.10); ADD DIFF? NO; ADD MORPH? NO; ADD SCAN? YES; ATYPICAL LYMPHOCYTE FLAG 0 (0-99); FRAGMENT RBC FLAG 0 (0-99); HEMATOCRIT 23.7 % (38.0-47.0); LIPEMIA HEMOLYSIS FLAG 70 (0-99); MEAN CELL HEMOGLOBIN 26.2 pg (27.9-34.1); MEAN CELL HEMOGLOBIN CONCENTR. 29.5 g/dL (32.4-36.7); MEAN CELL VOLUME 88.8 fL (81.5-99.8); MEAN PLATELET VOLUME 9.9 fL (8.7-11.7); PLATELET CLUMPS FLAG 0 (0-99); PLATELET COUNT 182 10^3/uL (150-400); RED BLOOD CELL COUNT 2.67 10^6/uL (4.18-5.33)
[2017-03-06 05:35] LABS: ANION GAP 10 mEq/L (8-16); CALCIUM 7.7 mg/dL (8.5-10.4); CARBON DIOXIDE 24 mEq/l (22-31); CHLORIDE 109 mEq/L (97-110); CREATININE 1.6 mg/dL (0.6-1.0); GLOMERULAR FILTRATION RATE 33; GLUCOSE 186 mg/dL (70-100); POTASSIUM 3.7 mEq/L (3.5-5.2); SODIUM 143 mEq/L (134-144)
[2017-03-06 05:41] LABS: LEFT SHIFT FLG 100 (0-99)
[2017-03-06] MEDS: INSULIN REGULAR HUMAN 100 UNIT/ML SC SCH ×4 (05:56→23:30)
[2017-03-06] MEDS: DICLOFENAC SODIUM 1% 100 GM GEL TP SCH ×4 (05:58→21:19)
[2017-03-06 07:13] LABS: SCAN NEGATIVE
[2017-03-06] MEDS: PANTOPRAZOLE SODIUM 40 MG TAB PO SCH (08:46)
[2017-03-06] MEDS: ASPIRIN 81 MG CHEWABLE TAB PO SCH (08:46)
[2017-03-06] MEDS: DULoxetine 30 MG CAP PO SCH ×2 (08:46→21:15)
[2017-03-06] MEDS: GABAPENTIN 300 MG CAP PO SCH ×2 (08:46→21:15)
[2017-03-06] MEDS: LEVOTHYROXINE 200 MCG TAB PO SCH (08:46)
[2017-03-06] MEDS: GABAPENTIN 400 MG CAP PO SCH ×2 (08:46→21:15)
[2017-03-06] MEDS: PREGABALIN 50 MG CAP PO SCH ×3 (08:46→23:13)
[2017-03-06] MEDS: ENOXAPARIN 40 MG/0.4 ML SYR SC SCH ×2 (08:47→21:15)
[2017-03-06] MEDS: cefTRIAXone 2 GM in D5W 50 ML IV SCH (08:47)
[2017-03-06] MEDS: INSULIN GLARGINE 100 UNITS/ML SYRINGE SC SCH ×2 (08:48→23:13)
--- NOTE | 2017-03-06 11:47 | PCMIDPN ---
Assessment/Plan: Assessment: Group a strep sepsis and bacteremia secondary to right lower extremity chronic ulcer as the nidus of infection. Patient is significantly clinically improved from her presentation yesterday. She continues to be treated with ceftriaxone. Will suspect she will need a 7-10 day course. Discussed with patient at length the in evident roxyi T that she will suffered another septic event in the future due to the chronic nonhealing of her peripheral foot ulcers. This is secondary to longstanding diabetes and peripheral neuropathy as well as Charcot joint changes. Doubt that she will see much benefit from total contact cast placement as she relates the residential facility, [facility], is planning to try with her. I suggested to the patient that she strongly consider elective [id number] amputation to try to mitigate further life- threatening episodes of septic shock. Plan: 1. Continue IV ceftriaxone monotherapy. Suspect a 7-10 day course of ceftriaxone to be adequate. 2. Follow up on repeat blood cultures drawn today. 3. Follow clinical course. 03/06/17 18:16 Subjective: Patient is resting comfortably in her hospital bed. She states that she feels much better than yesterday. She but moans the fact that she continues to get the septic events. She realizes this is from her chronic ulceration on the bottom of her right foot. She states that wound care at [facility] is interested in trying total contact casting to see if this will encourage her wound to heal. Objective: Ceftriaxone #2 Vital Signs Temp Pulse Resp BP Pulse Ox 37.3 C 87 18 138/63 H 95 03/06/17 10:00 03/06/17 10:00 03/06/17 10:00 03/06/17 10:00 03/06/17 10:00 Microbiology 03/04/17 11:27 Gram Stain - Final Cerebral Spinal Fluid Laboratory Results 03/06/17 04:45 03/06/17 04:45 03/05/17 03/06/17 03/07/17 05:59 05:59 05:59 Intake Total 7334 4034 Output Total 2650 1805 300 Balance 4684 2229 -300 - Physical Exam General Appearance: WD/WN, alert, no apparent distress, non-toxic Respiratory: lungs clear, normal breath sounds, No respiratory distress Cardiac/Chest: regular rate, rhythm, No tachycardia Extremities: non-tender, No normal inspection Skin: normal color, warm/dry, No rash Neuro/Psych: alert, normal mood/affect, oriented x 3 ICD10 Worksheet Patient Problems: Problems Problem Status Onset Cellulitis of foot, right Acute Severe sepsis Acute Abscess of left leg Acute Altered mental status Acute Anemia Acute Cellulitis in diabetic foot Acute Cellulitis of lower extremity Acute Failure to thrive Acute Fever Acute Lower limb ulcer, heel or midfoot Acute MRSA (methicillin resistant Staphylococcus aureus) Acute 10/10/14 Osteomyelitis of ankle or foot, right, acute Acute Sepsis Acute Uremia Acute
[2017-03-06] MEDS: HYDROmorphONE/DILAUDID 4 MG TAB PO PRN ×2 (12:33→17:00)
--- NOTE | 2017-03-06 15:51 | HOSPPROG ---
Hospitalist Progress Note Assessment/Plan: 56 yo F with hx of DM, morbid obesity, chronic calcaneal wound pw severe sepsis , AMS and acute respiratory failure * Severe sepsis - foot wound as source, now HD stable, lactate cleared * Strep pyogenes bacteremia - IV Ceftriaxone -sensitive to ctx, ID following -will repeat blood cultures today to prove clearance hopefully * Chronic pressure ulcer calcaneus right foot with associated osteomyelitis -MRI showing mild osteomyelitis without abscess, surgery and ID following * Charcot foot deformity --contributing to risk for above * Metabolic encephalopathy/acute- improved, multifactorial related to sepsis, narcotic medications * Respiratory arrest - suspect due to encephalopathy + narcs, improved with narcan -has been stable since admission * DM II, uncontrolled -continue glargine and SSI, A1c of 9 * Morbid obesity - BMI 45 * ARF on CKD - baseline creatinine 1.3, still above baseline but stable * MRSA/Proteus in wound -d/w Dr. Blue - not pathogen -isolation * Acute on chronic respiratory failure--resolved, now improved from baseline o2 need of 4L * COPD - stable * Chronic pain with continuous narcotic dependency--resumed on her home regimen IP status, will likely be able to dc back to SNF in coming 1-2 days on abx Pt new to my care. Old records reviewed and summarized as above. Care plan reviewed with Dr. Delcid and multidisciplinary care team on rounds. Subjective: no significant overnight events, patient notes she is fatigued and exhausted but otherwise feeling better than when she came in Objective: Vital Signs Temp Pulse Resp BP Pulse Ox 37.3 C 87 18 138/63 H 95 03/06/17 10:00 03/06/17 10:00 03/06/17 10:00 03/06/17 10:00 03/06/17 10:00 Microbiology 03/04/17 11:27 Gram Stain - Final Cerebral Spinal Fluid Laboratory Results 03/06/17 04:45 03/06/17 04:45 03/05/17 03/06/17 03/07/17 05:59 05:59 05:59 Intake Total 7334 4034 Output Total 2650 1805 300 Balance 4684 2229 -300 PT 14.1 SEC (12.0-15.0) 03/04/17 08:50 INR 1.10 (0.83-1.16) 09/16/17 08:50 awake alert anicteric op clear mmm rrr no mrg dec bs at bilateral bases, normal wob soft obese nt trace ble edema, bilateral hyperpigmenation c/w venous stasis, r foot bandaged warm dry oriented appropriate ICD10 Worksheet Patient Problems: Problems Problem Status Onset Osteomyelitis of ankle or foot, right, acute Acute Anemia Acute Cellulitis of foot, right Acute Cellulitis in diabetic foot Acute MRSA (methicillin resistant Staphylococcus aureus) Acute 10/10/14 Failure to thrive Acute Lower limb ulcer, heel or midfoot Acute Cellulitis of lower extremity Acute Abscess of left leg Acute Altered mental status Acute Uremia Acute Fever Acute Sepsis Acute Severe sepsis Acute
[2017-03-06] MEDS: clonazePAM 0.5 MG TAB PO PRN (15:54)
[2017-03-06] MEDS: ACETAMINOPHEN 325 MG TAB PO PRN (15:54)
[2017-03-06] MEDS ORDERED: IPRATROPIUM/ALBUTEROL 3 ML DEYVIAL IH PRN (16:35)
[2017-03-06] MEDS ORDERED: MAGNESIUM HYDROXIDE 30 ML UDCUP PO PRN (16:35)
[2017-03-06] MEDS ORDERED: NYSTATIN POWDER 15 GM BTL TP PRN (16:35)
[2017-03-06] MEDS ORDERED: CALCIUM CARBONATE 500 MG CHEWABLE TAB PO PRN (16:35)
[2017-03-06] MEDS ORDERED: PHENYLEPHRINE/SHK LV/MO/PET,WH 1 APP/GM OINT PR PRN (16:35)
[2017-03-06] MEDS: traZODone 50 MG TAB PO SCH (21:15)
[2017-03-07] MEDS: ACETAMINOPHEN 325 MG TAB PO PRN (04:15)
[2017-03-07 04:33] LABS: % IMMATURE GRANULYOCYTES 1.4 % (0.0-1.1); ABSOLUTE IMMATURE GRANULOCYTES 0.07 10^3/uL (0.00-0.10); ADD DIFF? NO; ADD MORPH? NO; ADD SCAN? NO; ATYPICAL LYMPHOCYTE FLAG 0 (0-99); FRAGMENT RBC FLAG 0 (0-99); HEMATOCRIT 23.7 % (38.0-47.0); HEMOGLOBIN 7.2 g/dL (12.6-16.3); LEFT SHIFT FLG 50 (0-99); LIPEMIA HEMOLYSIS FLAG 80 (0-99); MEAN CELL HEMOGLOBIN 26.4 pg (27.9-34.1); MEAN CELL HEMOGLOBIN CONCENTR. 30.4 g/dL (32.4-36.7); MEAN CELL VOLUME 86.8 fL (81.5-99.8); MEAN PLATELET VOLUME 9.9 fL (8.7-11.7); PLATELET CLUMPS FLAG 0 (0-99); PLATELET COUNT 188 10^3/uL (150-400); RED BLOOD CELL COUNT 2.73 10^6/uL (4.18-5.33)
[2017-03-07] MEDS: ONDANSETRON 4 MG/2 ML VIAL IVP PRN (04:37)
[2017-03-07 05:01] LABS: ANION GAP 10 mEq/L (8-16); CALCIUM 8.4 mg/dL (8.5-10.4); CARBON DIOXIDE 26 mEq/l (22-31); CHLORIDE 106 mEq/L (97-110); CREATININE 1.7 mg/dL (0.6-1.0); GLOMERULAR FILTRATION RATE 31; GLUCOSE 201 mg/dL (70-100); POTASSIUM 3.8 mEq/L (3.5-5.2); SODIUM 142 mEq/L (134-144)
[2017-03-07] MEDS: DICLOFENAC SODIUM 1% 100 GM GEL TP SCH ×4 (06:05→21:37)
[2017-03-07] MEDS: INSULIN REGULAR HUMAN 100 UNIT/ML SC SCH ×4 (06:06→21:39)
[2017-03-07] MEDS: PREGABALIN 50 MG CAP PO SCH ×3 (09:32→21:38)
[2017-03-07] MEDS: DULoxetine 30 MG CAP PO SCH ×2 (09:32→21:38)
[2017-03-07] MEDS: PANTOPRAZOLE SODIUM 40 MG TAB PO SCH (09:32)
[2017-03-07] MEDS: LEVOTHYROXINE 200 MCG TAB PO SCH (09:32)
[2017-03-07] MEDS: GABAPENTIN 400 MG CAP PO SCH ×2 (09:32→21:38)
[2017-03-07] MEDS: GABAPENTIN 300 MG CAP PO SCH ×2 (09:32→21:38)
[2017-03-07] MEDS: ASPIRIN 81 MG CHEWABLE TAB PO SCH (09:33)
[2017-03-07] MEDS: INSULIN GLARGINE 100 UNITS/ML SYRINGE SC SCH ×2 (09:33→22:21)
[2017-03-07] MEDS: cefTRIAXone 2 GM in D5W 50 ML IV SCH (09:33)
[2017-03-07] MEDS: PROMETHAZINE HCL 25 MG TAB PO PRN (10:00)
[2017-03-07] MEDS: ENOXAPARIN 40 MG/0.4 ML SYR SC SCH ×2 (11:41→21:38)
--- NOTE | 2017-03-07 11:52 | PCMIDPN ---
Assessment/Plan: Assessment/Plan: 1. Group A strep bacteremia: - Currently on Ceftraixone. -f/u blood cx from 03/06 pending 2. Polymicrobial wound infection wiht possible osteomyelitis, plus cellulitis: - Cx with proteus, MRSA, Group A strep - Today with erythema involving right leg extending into lower thigh -Will add Vanco for additional coverage. Dosing discussed with pharmacy -Creatinine 1.7. - Recheck BMp in am. - MRI noted. -pt wants to hold off on amputation decision until daughter comes. although i don't know if that will be any time soon. -care coordinated with pharmacy. Meds ceftriaxone. Subjective: afebrile. intermitently tearful. tells me she cant commit to amputation until her daughter comes from [place]. she c/o pain in the back of her leg. denies sob. or diarrhea.. Objective: Vital Signs Temp Pulse Resp BP Pulse Ox 36.5 C 84 16 125/67 H 96 03/07/17 08:27 03/07/17 08:27 03/07/17 08:27 03/07/17 08:27 03/07/17 08:27 Microbiology 03/04/17 11:27 Gram Stain - Final Cerebral Spinal Fluid Laboratory Results 03/07/17 03:30 03/07/17 03:30 03/06/17 03/07/17 03/08/17 05:59 05:59 05:59 Intake Total 4034 300 Output Total 1805 300 Balance 2229 0 - Physical Exam General Appearance: alert, no apparent distress Respiratory: lungs clear Cardiac/Chest: regular rate, rhythm Extremities: swelling, other (posterior heel not examined today. dressing change q 2-3 days. ) Abdomen: normal bowel sounds, non-tender, soft, distended, other (obese) Skin: erythema (right leg with erythema over leg extending into lower thigh. leg is warm to touch. swelling. tender to palpate on posterior aspect) ICD10 Worksheet Patient Problems: Problems Problem Status Onset Cellulitis of foot, right Acute Severe sepsis Acute Abscess of left leg Acute Altered mental status Acute Anemia Acute Cellulitis in diabetic foot Acute Cellulitis of lower extremity Acute Failure to thrive Acute Fever Acute Lower limb ulcer, heel or midfoot Acute MRSA (methicillin resistant Staphylococcus aureus) Acute 10/10/14 Osteomyelitis of ankle or foot, right, acute Acute Sepsis Acute Uremia Acute
[2017-03-07] MEDS ORDERED: VANCOMYCIN 1.75 GM in D5W 500 ML IV SCH (12:00)
[2017-03-07] MEDS: HYDROmorphONE/DILAUDID 4 MG TAB PO PRN ×2 (17:16→22:21)
[2017-03-07 19:21] LABS: IMMUNOGLOBULIN A 260 mg/dL (61 - 356); IMMUNOGLOBULIN G 1660 mg/dL (767 - 1590); IMMUNOGLOBULIN M 78 mg/dL (37 - 286)
[2017-03-07] MEDS: traZODone 50 MG TAB PO SCH (21:38)
[2017-03-07] MEDS: clonazePAM 0.5 MG TAB PO PRN (22:21)
[2017-03-08] MEDS: INSULIN REGULAR HUMAN 100 UNIT/ML SC SCH ×4 (05:43→22:42)
[2017-03-08] MEDS: DICLOFENAC SODIUM 1% 100 GM GEL TP SCH ×4 (05:43→21:49)
[2017-03-08 06:39] LABS: ANION GAP 9 mEq/L (8-16); CALCIUM 8.4 mg/dL (8.5-10.4); CARBON DIOXIDE 26 mEq/l (22-31); CHLORIDE 106 mEq/L (97-110); CREATININE 1.5 mg/dL (0.6-1.0); GLOMERULAR FILTRATION RATE 36; GLUCOSE 81 mg/dL (70-100); POTASSIUM 3.6 mEq/L (3.5-5.2); SODIUM 141 mEq/L (134-144)
--- NOTE | 2017-03-08 09:25 | PCMIDPN ---
Assessment/Plan: #Sepsis secondary RLE cellulitis/ calcaneal OM with associated GAS bacteremia. Back to baseline Mental status. Afebrile since 03/05. White count normalized. Noticeably more erythema mid calf and lateral thigh not present for my last exam 2 days ago. Brings into question possible role of MRSA. Also could consider due to nidus of infection, i.e. Calcaneal osteomyelitis which needs revision. underlying renal insufficiency therefore reluctant to utilize vancomycin. doubt Proteus is playing a role as patient with worsening while receiving coverage. --Streamline antibiotics to daptomycin alone, 6 mg/kg, 800 mg IV daily. Start tomorrow --DC vancomycin and ceftriaxone --discussed that control of infection may hinge at some level of amputation calcaneal revision versus BKA. Consult ortho # recurrent bacteremia explained by underlying right calcaneal osteomyelitis, immunoglobulins were normal # Renal insufficiency: Check daily Cr Med vancomycin 1.75 g IV ceftriaxone 2 g IV daily, #3 microbiology 03/04 blood cx / GAS 03/05 wound culture: Group a strep, MRSA and Proteus 03/06 blood culture 2 sets: NGTD 03/04 CSF culture negative IgG appropriately high Subjective: patient insistent on her high school age daughter being present if she undergoes a BKA. She willing to undergo a calcaneal resection without her traveling to [place]. Her daughter lives in [place] with his her boyfriend & his mother and is attending senior year of high school. Reviewed with patient that he does not likely feasible for her daughter to come to [place] due to situation. Objective: Vital Signs Temp Pulse Resp BP Pulse Ox 36.6 C 89 16 140/70 H 96 03/08/17 09:05 03/08/17 09:05 03/08/17 09:05 03/08/17 09:05 03/08/17 09:05 Microbiology 03/04/17 11:27 Gram Stain - Final Cerebral Spinal Fluid CSF Culture - Final Laboratory Results 03/07/17 03:30 03/08/17 06:00 03/07/17 03/08/17 03/09/17 05:59 05:59 05:59 Intake Total 062 673 1511 Output Total 300 1350 Balance 0 400 135 - Physical Exam General Appearance: alert, other ( tearful) EENT: pale conjunctiva, No thrush Respiratory: lungs clear, No accessory muscle use Cardiac/Chest: regular rate, rhythm Extremities: erythema ( right upper calf and lateral thigh. Ankle and foot spared from erythema. Different distribution than my exam 2 days ago which was faint erythema in a stocking distribution of the right lower extremity) Skin: pallor, No rash Neuro/Psych: alert, depressed affect - Line/s Mediport Lines: other ( right chest wall), No drainage, No erythema - Time Spent With Patient Time Spent with Patient: greater than 35 minutes Time Spent with Patient: Greater than 35 minutes spent on this patients care, greater than 50% of time spent counseling, educating, and coordinating care regarding the above mentioned plan. ICD10 Worksheet Patient Problems: Problems Problem Status Onset Cellulitis of foot, right Acute Methicillin resistant Staphylococcus aureus infection Acute ~03/04/17 Severe sepsis Acute Abscess of left leg Acute Altered mental status Acute Anemia Acute Cellulitis in diabetic foot Acute Cellulitis of lower extremity Acute Failure to thrive Acute Fever Acute Lower limb ulcer, heel or midfoot Acute MRSA (methicillin resistant Staphylococcus aureus) Acute 10/10/14 Osteomyelitis of ankle or foot, right, acute Acute Sepsis Acute Uremia Acute
[2017-03-08] MEDS: cefTRIAXone 2 GM in D5W 50 ML IV SCH (09:36)
[2017-03-08] MEDS: GABAPENTIN 400 MG CAP PO SCH ×2 (09:36→21:47)
[2017-03-08] MEDS: ENOXAPARIN 40 MG/0.4 ML SYR SC SCH (09:36)
[2017-03-08] MEDS: INSULIN GLARGINE 100 UNITS/ML SYRINGE SC SCH ×2 (09:36→21:37)
[2017-03-08] MEDS: LEVOTHYROXINE 200 MCG TAB PO SCH (09:36)
[2017-03-08] MEDS: DULoxetine 30 MG CAP PO SCH ×2 (09:36→21:48)
[2017-03-08] MEDS: PREGABALIN 50 MG CAP PO SCH ×3 (09:37→21:48)
[2017-03-08] MEDS: GABAPENTIN 300 MG CAP PO SCH ×2 (09:37→21:47)
[2017-03-08] MEDS: ASPIRIN 81 MG CHEWABLE TAB PO SCH (09:37)
[2017-03-08] MEDS: PANTOPRAZOLE SODIUM 40 MG TAB PO SCH (09:37)
[2017-03-08] MEDS: HYDROmorphONE/DILAUDID 1 MG/ML INJ IVP PRN (13:03)
[2017-03-08] MEDS: fentaNYL 75 MCG PATCH TD SCH (14:05)
[2017-03-08] MEDS: clonazePAM 0.5 MG TAB PO PRN (14:06)
[2017-03-08] MEDS ORDERED: GADOBUTROL 10 ML VIAL IVP ONE (14:23)
[2017-03-08] MEDS: HYDROmorphONE/DILAUDID 4 MG TAB PO PRN ×2 (15:30→21:51)
--- NOTE | 2017-03-08 17:02 | ASMTCMCOM ---
CM Note CM Note Notes: Contacted [facility] to bring pt's glasses. They stated that an aide will bringthem by the end of the day. C/M will continue to follow for DC needs. Date Signed: 03/08/2017 05:01 PM Electronically Signed By:Lucrecia Engle LCSW
--- NOTE | 2017-03-08 17:10 | HOSPPROG ---
Hospitalist Progress Note Assessment/Plan: * Severe sepsis - foot wound as source -Group A Strep bacteremia - now on IV daptomycin -MRSA from wound - isolation * Osteomyelitis of calcaneus right foot -needs calcanectomy - consult podiatry -if fails - may need BKA * Charcot foot deformity * Metabolic encephalopathy - improved * Respiratory arrest - due to encephalopathy + narcs * DM II, uncontrolled -Lantus -HgA1c 9.0 * Morbid obesity - BMI 45 * ARF on CKD - baseline creatinine 1.3 * Acute on chronic respiratory failure * COPD - 4L baseline * Chronic pain with continuous narcotic dependency * Depression - acutely despondent about her situation -start celexa -consult [facility] Subjective: no new complaints Objective: Vital Signs Temp Pulse Resp BP Pulse Ox 37.4 C 91 16 144/68 H 91 L 03/08/17 16:00 03/08/17 16:00 03/08/17 16:00 03/08/17 16:00 03/08/17 16:00 Microbiology 03/04/17 11:27 Gram Stain - Final Cerebral Spinal Fluid CSF Culture - Final Laboratory Results 03/07/17 03:30 03/08/17 06:00 03/07/17 03/08/17 03/09/17 05:59 05:59 05:59 Intake Total 159 757 0820 Output Total 300 2350 Balance 0 400 -865 PT 14.1 SEC (12.0-15.0) 03/04/17 08:50 INR 1.10 (0.83-1.16) 03/04/17 08:50 Case d/w Dr. Blue - needs surgical consultation for calcanectomy case d/w Dr. Wynn - he will consult MRI tib/fib - no abscess - Physical Exam Constitutional: no apparent distress, appears nourished, not in pain Cardiovascular: regular rate and rhythym, no murmur, rub, or gallop Respiratory: no respiratory distress, no rales or rhonchi, clear to auscultation Gastrointestinal: normoactive bowel sounds, soft, non-tender abdomen, no palpable masses Skin: no rashes or abrasions, no fluctuance, no induration Neurologic: AAOx3, sensation intact bilaterally Psychiatric: thought process linear, anxious, depressed, other (very emotional, crying continuously about her life situation), No encephalopathic ICD10 Worksheet Patient Problems: Problems Problem Status Onset Cellulitis of foot, right Acute Methicillin resistant Staphylococcus aureus infection Acute ~03/04/17 Severe sepsis Acute Abscess of left leg Acute Altered mental status Acute Anemia Acute Cellulitis in diabetic foot Acute Cellulitis of lower extremity Acute Failure to thrive Acute Fever Acute Lower limb ulcer, heel or midfoot Acute MRSA (methicillin resistant Staphylococcus aureus) Acute 10/10/14 Osteomyelitis of ankle or foot, right, acute Acute Sepsis Acute Uremia Acute
--- NOTE | 2017-03-08 17:11 | WOCRNPDOC ---
WOCRN Advanced Assessment Note - Skin Integrity Problem, Advanced Assess Right Heel Dressing Type: Hydrofera Blue Ready Dressing Description: Intact, Saturated Exudate Amount: Minimal Exudate Characteristic(s): Sanguinous Integumentary Issue Intervention: Dressing Removed Holley Wound Tissue: Macerated, Scarred, Calloused Holley Wound Swelling: None Wound Bed Color: Amelia, Red Wound Bed Constitution: Granulation Tissue (70% pink non healthy granulation, 30 % vascular granulation) Wound Edges: Attached, Not Attached Site Measurement - Head-to-Toe Length X Width X Depth (cm): 6.7x8.2x0.5 Pressure Injury Stage: Stage 3 Pressure Injury Present on Admit: Yes Skin Integrity Problem Comment: Mixed neuropathic and pressure etiology. Edges macerated. Keep Hydrofera blue ready cut to fit wound bed. Wound care will round again late next week.
[2017-03-08] MEDS: LORazepam 0.5 MG TAB PO PRN (18:04)
--- NOTE | 2017-03-08 21:21 | GCON ---
[f rep st] CONSULTATION PODIATRIC CONSULTATION SUBJECTIVE: The patient is seen at [facility], room 153. She is in her bed and is r elating of severe pain. She is a fairly poor historian today. She cannot tell me when she was admit bobby to [facility]. She does relate though that she has been diagnosed with a bone in fection and is currently on IV antibiotics. After talking with her hospitalist and Dr. Brodie Wang i t has been determined that they have suggested BK amputation to her, but she is unwilling to proceed with that. They have gotten her to move forward with a calcanectomy to deal with the infection. OBJECTIVE: EXTREMITIES: Evaluation today shows a dressing over the right calcaneus. Upon removal t here is a full-thickness ulceration on the plantar posterior aspect of the calcaneus. The area measu res greater than 50 cm in diameter. It does not probe directly to bone. There is erythema surroundi ng the area and evidence of ascending cellulitis in the right lower leg. No purulent drainage from t he ulcer is appreciable at this time. IMPRESSION: 1. Diabetes. 2. Diabetic ulceration with osteomyelitis. 3. Peripheral neuropathy. PLAN: Treatment today consisted of evaluation of the site. We had an in-depth discussion on treatme nt options. I explained that the BK amputation was a reasonable approach, but again she was unwillin g to proceed with that. We then discussed the partial calcanectomy again. At this point, she relate d that she was not willing to do that until she got her glasses, toshia bear, and back pack from [facility]. I spoke with her primary care doctor afterwards and will attempt to have those things brou ght over. In the meantime, we are going to plan for the partial amputation tomorrow afternoon. /[id number]/MODL
[2017-03-08] MEDS: traZODone 50 MG TAB PO SCH (21:50)
[2017-03-09] MEDS: ONDANSETRON 4 MG/2 ML VIAL IVP PRN (02:10)
[2017-03-09] MEDS: HYDROmorphONE/DILAUDID 4 MG TAB PO PRN ×4 (02:13→23:00)
[2017-03-09] MEDS: DICLOFENAC SODIUM 1% 100 GM GEL TP SCH ×3 (06:24→21:52)
[2017-03-09] MEDS: INSULIN REGULAR HUMAN 100 UNIT/ML SC SCH ×4 (06:25→23:46)
[2017-03-09] MEDS: DULoxetine 30 MG CAP PO SCH ×2 (07:56→21:50)
[2017-03-09] MEDS: GABAPENTIN 400 MG CAP PO SCH ×2 (07:56→21:50)
[2017-03-09] MEDS: CITALOPRAM 20 MG TAB PO SCH (07:56)
[2017-03-09] MEDS: ASPIRIN 81 MG CHEWABLE TAB PO SCH (07:56)
[2017-03-09] MEDS: GABAPENTIN 300 MG CAP PO SCH ×2 (07:57→21:50)
[2017-03-09] MEDS: LEVOTHYROXINE 200 MCG TAB PO SCH (07:57)
[2017-03-09] MEDS: PANTOPRAZOLE SODIUM 40 MG TAB PO SCH (07:57)
[2017-03-09] MEDS: PREGABALIN 50 MG CAP PO SCH ×3 (07:57→21:51)
[2017-03-09] MEDS ORDERED: BUPIVACAINE 0.25% 30 ML SDV ONE (08:49)
[2017-03-09] MEDS ORDERED: BACITRACIN 50,000 UNITS/10 ML SYR IRR ONE (08:50)
[2017-03-09] MEDS ORDERED: LIDOCAINE 2% 5 ML SDV ONE (08:50)
--- NOTE | 2017-03-09 09:55 | PCMIDPN ---
Assessment/Plan: #Sepsis secondary RLE cellulitis/ calcaneal OM with associated GAS bacteremia. Back to baseline Mental status. Afebrile since 03/05. Blood cx 03/06 establish clearance of bacteremia. Erythema RLE stable today. Improvement may stagnate until calcaneal resection --continue daptomycin for coverage group a strep and MRSA in light of underlying renal insufficiency with concern of vancomycin renal toxicity -- duration of antibiotic therapy pending # recurrent bacteremia explained by underlying right calcaneal osteomyelitis and poorly controlled diabetes; immunoglobulins were normal # Renal insufficiency: -- Cr still pending this AM Med, Abx #4 daptomycin #1 microbiology 03/04 blood cx / GAS 03/05 wound culture: Group a strep, MRSA and Proteus 03/06 blood culture 2 sets: NGTD 03/04 CSF culture negative IgG appropriately high Subjective: patient is unwilling to have surgery today until can be discussed with teenage daughter Monday she remains upset about items left at [facility] including glasses Significantly less pain RLE Objective: Vital Signs Temp Pulse Resp BP Pulse Ox 36.5 C 85 16 110/61 98 03/09/17 07:31 03/09/17 07:31 03/09/17 07:31 03/09/17 07:31 03/09/17 07:31 Laboratory Results 03/07/17 03:30 03/08/17 06:00 03/08/17 03/09/17 03/10/17 05:59 05:59 05:59 Intake Total 400 1485 Output Total 3450 Balance 400 -1965 - Physical Exam General Appearance: alert, no apparent distress EENT: pale conjunctiva Respiratory: No accessory muscle use Neck: supple Cardiac/Chest: regular rate, rhythm Extremities: swelling (R calf), erythema (alfredo, from R mid calf to knee to lateral thigh, stable compared to yesterday) Abdomen: non-tender, soft Neuro/Psych: alert, oriented x 3 - Line/s Mediport Lines: No drainage, No erythema ICD10 Worksheet Patient Problems: Problems Problem Status Onset Cellulitis of foot, right Acute Methicillin resistant Staphylococcus aureus infection Acute ~03/04/17 Severe sepsis Acute Abscess of left leg Acute Altered mental status Acute Anemia Acute Cellulitis in diabetic foot Acute Cellulitis of lower extremity Acute Failure to thrive Acute Fever Acute Lower limb ulcer, heel or midfoot Acute MRSA (methicillin resistant Staphylococcus aureus) Acute 10/10/14 Osteomyelitis of ankle or foot, right, acute Acute Sepsis Acute Uremia Acute
[2017-03-09] MEDS: DAPTOmycin 800 MG in NS 100 ML IV SCH (10:05)
[2017-03-09] MEDS: INSULIN GLARGINE 100 UNITS/ML SYRINGE SC SCH ×2 (10:05→21:51)
[2017-03-09] MEDS ORDERED: ALTEPLASE 2 MG VIAL IVP PRN (11:21)
--- NOTE | 2017-03-09 11:31 | ASMTCMCOM ---
CM Note CM Note Notes: Pt's glasses finally brought from [facility]. Plan was for pt to have a partial calcanectomy with Dr Wynn today but she is delaying. Her reason with Dr Wynn was need for glass, toshia bear and backpack. Discussed this with pt today and her current reason to delay is that she wants her 18 y/o dtr Kalee to be involved in decision. Offered to set up a 3-way conf. call with pt, dtr and Dr Wynn. Pt stated she cannot discuss this with her dtr on a school night and it will have to wait until after school tomorrow. Surgery uncertain as is DC. Faxed updates to [facility] [place]/ to follow. Date Signed: 03/09/2017 11:31 AM Electronically Signed By:Lucrecia Engle LCSW
--- NOTE | 2017-03-09 11:49 | HOSPPROG ---
Hospitalist Progress Note Assessment/Plan: First encounter with this Patient * Severe sepsis - foot wound as source -Group A Strep bacteremia - now on IV daptomycin. D/W ID -MRSA from wound - isolation * Osteomyelitis of calcaneus right foot -needs calcanectomy - consult podiatry. Procedure date and time is being clarified -if fails - may need BKA * Charcot foot deformity * Pressure Ulcer Right Heel, Stage 3. Wound care following * Metabolic encephalopathy - resolved, now back to baseline * Respiratory arrest - due to encephalopathy + narcs * DM II, uncontrolled -Lantus -HgA1c 9.0 * Morbid obesity - BMI 45 * ARF on CKD - baseline creatinine 1.3. Repeat Cr. pending. Will reorder for a.m. * Acute on chronic respiratory failure, appears to be at baseline * COPD - 4L baseline * Chronic pain with continuous narcotic dependency * Depression - acutely despondent about her situation -start celexa -consult [facility] * Anemia: will recheck in a.m. If drops, may need transfusion Subjective: Alert and oriented. Will not have calcanectomy today. No CP or SOB Objective: Vital Signs Temp Pulse Resp BP Pulse Ox 36.5 C 85 16 110/61 98 03/09/17 07:31 03/09/17 07:31 03/09/17 07:31 03/09/17 07:31 03/09/17 07:31 Laboratory Results 03/07/17 03:30 03/08/17 06:00 03/08/17 03/09/17 03/10/17 05:59 05:59 05:59 Intake Total 400 1485 Output Total 3450 Balance 400 -1965 PT 14.1 SEC (12.0-15.0) 03/04/17 08:50 INR 1.10 (0.83-1.16) 03/04/17 08:50 - Physical Exam Constitutional: chronically ill appearing Eyes: PERRL, EOMI Ears, Nose, Mouth, Throat: moist mucous membranes Cardiovascular: regular rate and rhythym Respiratory: reduced air movement Gastrointestinal: normoactive bowel sounds Skin: erythema, rash Neurologic: AAOx3 Psychiatric: anxious, poor insight, poor judgement ICD10 Worksheet Patient Problems: Problems Problem Status Onset Cellulitis of foot, right Acute Methicillin resistant Staphylococcus aureus infection Acute ~09/16/17 Severe sepsis Acute Abscess of left leg Acute Altered mental status Acute Anemia Acute Cellulitis in diabetic foot Acute Cellulitis of lower extremity Acute Failure to thrive Acute Fever Acute Lower limb ulcer, heel or midfoot Acute MRSA (methicillin resistant Staphylococcus aureus) Acute 10/10/14 Osteomyelitis of ankle or foot, right, acute Acute Sepsis Acute Uremia Acute
[2017-03-09] MEDS: PROMETHAZINE HCL 25 MG TAB PO PRN (11:59)
[2017-03-09 12:39] LABS: ADD DIFF? YES; ADD MORPH? YES; ADD SCAN? NO; ATYPICAL LYMPHOCYTE FLAG 40 (0-99); FRAGMENT RBC FLAG 0 (0-99); HEMATOCRIT 20.4 % (38.0-47.0); LEFT SHIFT FLG 60 (0-99); LIPEMIA HEMOLYSIS FLAG 80 (0-99); MEAN CELL HEMOGLOBIN 26.6 pg (27.9-34.1); MEAN CELL HEMOGLOBIN CONCENTR. 31.4 g/dL (32.4-36.7); MEAN CELL VOLUME 84.6 fL (81.5-99.8); MEAN PLATELET VOLUME 9.7 fL (8.7-11.7); PLATELET CLUMPS FLAG 0 (0-99); PLATELET COUNT 196 10^3/uL (150-400); RED BLOOD CELL COUNT 2.41 10^6/uL (4.18-5.33); RED CELL DISTRIBUTION WIDTH 14.8 % (11.5-15.2)
[2017-03-09 12:41] LABS: HEMOGLOBIN 6.4 g/dL (12.6-16.3)
[2017-03-09 13:30] LABS: PLATELET ESTIMATE ADEQUATE (ADEQ)
[2017-03-09 13:33] LABS: MICROCYTES 1+; POLYCHROMASIA 1+
[2017-03-09 14:00] LABS: ANION GAP 10 mEq/L (8-16); CALCIUM 8.4 mg/dL (8.5-10.4); CARBON DIOXIDE 26 mEq/l (22-31); CHLORIDE 105 mEq/L (97-110); CREATININE 1.3 mg/dL (0.6-1.0); GLOMERULAR FILTRATION RATE 43; GLUCOSE 59 mg/dL (70-100); POTASSIUM 4.3 mEq/L (3.5-5.2); SODIUM 141 mEq/L (134-144)
[2017-03-09] MEDS: traZODone 50 MG TAB PO SCH (21:51)
[2017-03-10] MEDS: DICLOFENAC SODIUM 1% 100 GM GEL TP SCH ×4 (06:37→21:31)
[2017-03-10] MEDS: INSULIN REGULAR HUMAN 100 UNIT/ML SC SCH ×3 (06:37→18:24)
[2017-03-10] MEDS: HYDROmorphONE/DILAUDID 4 MG TAB PO PRN ×2 (06:37→13:35)
[2017-03-10] MEDS: ASPIRIN 81 MG CHEWABLE TAB PO SCH (08:49)
[2017-03-10] MEDS: CITALOPRAM 20 MG TAB PO SCH (08:49)
[2017-03-10] MEDS: GABAPENTIN 300 MG CAP PO SCH ×2 (08:49→21:28)
[2017-03-10] MEDS: DULoxetine 30 MG CAP PO SCH ×2 (08:49→21:28)
[2017-03-10] MEDS: LEVOTHYROXINE 200 MCG TAB PO SCH (08:49)
[2017-03-10] MEDS: INSULIN GLARGINE 100 UNITS/ML SYRINGE SC SCH ×2 (08:49→21:41)
[2017-03-10] MEDS: PANTOPRAZOLE SODIUM 40 MG TAB PO SCH (08:49)
[2017-03-10] MEDS: PREGABALIN 50 MG CAP PO SCH ×3 (08:49→21:28)
[2017-03-10] MEDS: GABAPENTIN 400 MG CAP PO SCH ×2 (08:49→21:28)
[2017-03-10] MEDS: DAPTOmycin 800 MG in NS 100 ML IV SCH (09:31)
--- NOTE | 2017-03-10 10:17 | PCMIDPN ---
Assessment/Plan: 1. Group a strep sepsis secondary to right lower extremity cellulitis/myositis/ calcaneal osteomyelitis: Spent quite some time talking to patient today. Talked her at length about my colleague, Dr. Wang's recommendation for BKA, and why this would be the better choice for her moving forward from an infection standpoint. After answering all of her questions, the patient is now requesting a BKA. I have placed a call to Dr. Wynn--I had to leave a voicemail on his cell phone. I suspect nothing will be done today, especially as the patient just finished eating a large breakfast. Continue daptomycin; check baseline CK on this antibiotic, and will need weekly thereafter. Of note, clinical exam worrisome for development of possible drainable focus posterior calf with tenderness and swelling, but this will be a moot issue with BKA. 2. Intertriginous candidiasis beneath breasts and pannus: Continue nystatin powder. Subjective: Patient did not have surgery yesterday, as she wanted to speak to her daughter, and wanted several items brought to her from [facility] including her glasses and stuffed bear. I walked into the room this morning, and both of these items were visible. Proceeded to have long conversation with patient today about calcanectomy verses BKA. Patient is ultimately decided on BKA. Please see impression and plan. Objective: Daptomycin 800 mg IV daily day 2 (previously on vancomycin/meropenem, then ceftriaxone) T-max 37.7degrees Vital Signs Temp Pulse Resp BP Pulse Ox 36.6 C 88 16 144/63 H 97 03/10/17 09:21 03/10/17 09:21 03/10/17 09:21 03/10/17 09:21 03/10/17 09:21 Laboratory Results 03/09/17 12:25 03/09/17 12:25 03/09/17 03/10/17 03/11/17 05:59 05:59 05:59 Intake Total 1485 2346 Output Total 3450 2300 Balance -1965 46 Blood cultures 918 no growth Blood cultures 916 with group a strep Foot culture with Proteus, MRSA and group a strep - Physical Exam General Appearance: no apparent distress, obese EENT: pharynx normal Respiratory: lungs clear Cardiac/Chest: other (Port right chest looks fine. No tenderness) Extremities: other (Right lower extremity beet red and swollen. Calf muscles swollen and quite tender. No obvious fluctuance, but significantly tender and beet red. Calcaneal wound with dressing in place that I did not remove) Abdomen: non-tender, soft Skin: other (Josi intertrigo beneath breasts and pannus.) ICD10 Worksheet Patient Problems: Problems Problem Status Onset Cellulitis of foot, right Acute Methicillin resistant Staphylococcus aureus infection Acute ~03/04/17 Severe sepsis Acute Abscess of left leg Acute Altered mental status Acute Anemia Acute Cellulitis in diabetic foot Acute Cellulitis of lower extremity Acute Failure to thrive Acute Fever Acute Lower limb ulcer, heel or midfoot Acute MRSA (methicillin resistant Staphylococcus aureus) Acute 10/10/14 Osteomyelitis of ankle or foot, right, acute Acute Sepsis Acute Uremia Acute
[2017-03-10] MEDS: clonazePAM 0.5 MG TAB PO PRN (14:04)
--- NOTE | 2017-03-10 16:32 | HOSPPROG ---
Hospitalist Progress Note Assessment/Plan: * Severe sepsis - foot wound as source -Group A Strep bacteremia - now on IV daptomycin. D/W ID -MRSA from wound - isolation * Osteomyelitis of calcaneus right foot -Has agreed to BKA likely on Monday * Charcot foot deformity * Pressure Ulcer Right Heel, Stage 3. Wound care following * Metabolic encephalopathy - resolved, now back to baseline * Respiratory arrest - due to encephalopathy + narcs * DM II, uncontrolled -Lantus -HgA1c 9.0 * Morbid obesity - BMI 45 * ARF on CKD - baseline creatinine 1.3. Repeat Cr. pending. Will reorder for a.m. * Acute on chronic respiratory failure, appears to be at baseline * COPD - 4L baseline * Chronic pain with continuous narcotic dependency * Depression - acutely despondent about her situation -start celexa -consult [facility] * Anemia: s/p one unit PRBC transfusion on 03/09/17 Dispo: continue with IV daptomycin. will likely get a BKA on Monday. Subjective: Has decided on BKA. No SOB. Transfused PRBC yesterday. Objective: Vital Signs Temp Pulse Resp BP Pulse Ox 36.9 C 77 16 136/64 H 96 03/10/17 15:42 03/10/17 15:42 03/10/17 15:42 03/10/17 15:42 03/10/17 15:42 Laboratory Results 03/09/17 12:25 03/09/17 12:25 03/09/17 03/10/17 03/11/17 05:59 05:59 05:59 Intake Total 1485 2346 Output Total 3450 2300 950 Balance -1965 46 -950 PT 14.1 SEC (12.0-15.0) 03/04/17 08:50 INR 1.10 (0.83-1.16) 03/04/17 08:50 - Physical Exam Constitutional: no apparent distress, chronically ill appearing Eyes: PERRL, EOMI Ears, Nose, Mouth, Throat: moist mucous membranes Cardiovascular: regular rate and rhythym, No JVD Respiratory: no respiratory distress, reduced air movement Gastrointestinal: soft, non-tender abdomen Skin: warm Neurologic: AAOx3 Psychiatric: interacting appropriately, not anxious, not encephalopathic ICD10 Worksheet Patient Problems: Problems Problem Status Onset Cellulitis of foot, right Acute Methicillin resistant Staphylococcus aureus infection Acute ~03/04/17 Severe sepsis Acute Abscess of left leg Acute Altered mental status Acute Anemia Acute Cellulitis in diabetic foot Acute Cellulitis of lower extremity Acute Failure to thrive Acute Fever Acute Lower limb ulcer, heel or midfoot Acute MRSA (methicillin resistant Staphylococcus aureus) Acute 10/10/14 Osteomyelitis of ankle or foot, right, acute Acute Sepsis Acute Uremia Acute
--- NOTE | 2017-03-10 16:42 | ASMTCMCOM ---
CM Note CM Note Notes: Reviewed chart. Per Dr. Marley, patient now agreeable to BKA. Also discussed with hospitalist. Plan BKA on Monday potentially. Needs TBD after surgery. CM to follow. Date Signed: 03/10/2017 04:41 PM Electronically Signed By:Amber Nova RN
[2017-03-10] MEDS: ONDANSETRON 4 MG/2 ML VIAL IVP PRN (17:02)
[2017-03-10] MEDS ORDERED: FLU VACC QS 2017-18 (3YR+)/PF 0.5 ML SYR (FLUARIX QUAD) IM ONE (18:11)
[2017-03-10] MEDS: fentaNYL 75 MCG PATCH TD SCH ×2 (18:20→18:26)
[2017-03-10] MEDS: PROMETHAZINE HCL 25 MG TAB PO PRN (21:00)
[2017-03-10] MEDS: traZODone 50 MG TAB PO SCH (21:28)
--- NOTE | 2017-03-11 03:40 | SOAPPROG ---
SOAP Progress Note Assessment/Plan: Assessment: Patient seen yesterday 56-year-old diabetic with Charcot's deformities of both feet. Right foot with open ulceration and osteomyelitis of the calcaneus complicated by some swelling in her calf. Likely will need a BK amputation although with her anatomy that may be a difficult operation with the large swollen fat right lower extremity Risks and options were fully discussed with the patient and we will proceed with evaluation for BKA Plan: Noninvasive arterial studies to evaluate potential healing of a BK amputation 03/11/17 03:37 Objective: Vital Signs Temp Pulse Resp BP Pulse Ox 37.0 C 82 18 152/62 H 96 03/10/17 20:17 03/10/17 20:17 03/10/17 20:17 03/10/17 20:17 03/10/17 20:17 Laboratory Results 03/09/17 12:25 03/09/17 12:25 03/09/17 03/10/17 03/11/17 05:59 05:59 05:59 Intake Total 1485 2346 100 Output Total 3450 2300 950 Balance -1965 46 -850 PT 14.1 SEC (12.0-15.0) 03/04/17 08:50 INR 1.10 (0.83-1.16) 03/04/17 08:50 ICD10 Worksheet Patient Problems: Problems Problem Status Onset Cellulitis of foot, right Acute Methicillin resistant Staphylococcus aureus infection Acute ~03/04/17 Severe sepsis Acute Abscess of left leg Acute Altered mental status Acute Anemia Acute Cellulitis in diabetic foot Acute Cellulitis of lower extremity Acute Failure to thrive Acute Fever Acute Lower limb ulcer, heel or midfoot Acute MRSA (methicillin resistant Staphylococcus aureus) Acute 10/10/14 Osteomyelitis of ankle or foot, right, acute Acute Sepsis Acute Uremia Acute
[2017-03-11 05:01] LABS: ABSOLUTE NRBC COUNT 0.02 10^3/uL (0-0.01); ADD DIFF? YES; ADD MORPH? YES; ADD SCAN? NO; ATYPICAL LYMPHOCYTE FLAG 20 (0-99); FRAGMENT RBC FLAG 0 (0-99); HEMATOCRIT 21.7 % (38.0-47.0); LEFT SHIFT FLG 80 (0-99); LIPEMIA HEMOLYSIS FLAG 80 (0-99); MEAN CELL HEMOGLOBIN 26.8 pg (27.9-34.1); MEAN CELL HEMOGLOBIN CONCENTR. 31.3 g/dL (32.4-36.7); MEAN CELL VOLUME 85.4 fL (81.5-99.8); MEAN PLATELET VOLUME 9.6 fL (8.7-11.7); NRBC-AUTO% 0.3 % (0.0-0.2); PLATELET CLUMPS FLAG 30 (0-99); PLATELET COUNT 231 10^3/uL (150-400); RED BLOOD CELL COUNT 2.54 10^6/uL (4.18-5.33); RED CELL DISTRIBUTION WIDTH 15.2 % (11.5-15.2)
[2017-03-11 05:12] LABS: ANION GAP 11 mEq/L (8-16); CALCIUM 8.5 mg/dL (8.5-10.4); CARBON DIOXIDE 27 mEq/l (22-31); CHLORIDE 106 mEq/L (97-110); CREATININE 1.2 mg/dL (0.6-1.0); GLOMERULAR FILTRATION RATE 47; GLUCOSE 56 mg/dL (70-100); POTASSIUM 4.4 mEq/L (3.5-5.2); SODIUM 144 mEq/L (134-144)
[2017-03-11 05:21] LABS: HEMOGLOBIN 6.8 g/dL (12.6-16.3)
[2017-03-11] MEDS: INSULIN REGULAR HUMAN 100 UNIT/ML SC SCH ×4 (05:56→17:37)
[2017-03-11 06:17] LABS: HYPOCHROMIA 1+; MACROCYTES 1+; PLATELET ESTIMATE ADEQUATE (ADEQ)
[2017-03-11] MEDS: DICLOFENAC SODIUM 1% 100 GM GEL TP SCH ×3 (06:56→20:43)
[2017-03-11] MEDS: DAPTOmycin 800 MG in NS 100 ML IV SCH (09:02)
[2017-03-11] MEDS: PANTOPRAZOLE SODIUM 40 MG TAB PO SCH (09:07)
[2017-03-11] MEDS: ASPIRIN 81 MG CHEWABLE TAB PO SCH (09:08)
[2017-03-11] MEDS: CITALOPRAM 20 MG TAB PO SCH (09:08)
[2017-03-11] MEDS: HYDROmorphONE/DILAUDID 4 MG TAB PO PRN ×3 (09:08→20:41)
[2017-03-11] MEDS: PREGABALIN 50 MG CAP PO SCH ×3 (09:08→20:45)
[2017-03-11] MEDS: GABAPENTIN 400 MG CAP PO SCH ×2 (09:09→20:41)
[2017-03-11] MEDS: LEVOTHYROXINE 200 MCG TAB PO SCH (09:09)
[2017-03-11] MEDS: DULoxetine 30 MG CAP PO SCH ×2 (09:09→20:41)
[2017-03-11] MEDS: GABAPENTIN 300 MG CAP PO SCH ×2 (09:09→20:40)
[2017-03-11] MEDS: INSULIN GLARGINE 100 UNITS/ML SYRINGE SC SCH ×3 (11:11→20:40)
--- NOTE | 2017-03-11 17:20 | SOAPPROG ---
AVERY Progress Note Assessment/Plan: Assessment: Patient seen yesterday 56-year-old diabetic with Charcot's deformities of both feet. Right foot with open ulceration and osteomyelitis of the calcaneus complicated by some swelling in her calf. Likely will need a BK amputation although with her anatomy that may be a difficult operation with the large swollen fat right lower extremity Risks and options were fully discussed with the patient and we will proceed with evaluation for BKA Plan: Noninvasive arterial studies to evaluate potential healing of a BK amputation 03/11/17 03:37 03/11/17 17:19 DOING WELL TODAY AND COMFORTABLE WITH HER DECISION FOR RIGHT BKA/ARE STUDIES PENDING/AFEBRILE/STILL MODERATE EDEMA OF THE RIGHT CALF PLAN ARTERIAL EVALUATION AND ULTRASOUND TO RULE OUT DVT Objective: Vital Signs Temp Pulse Resp BP Pulse Ox 36.7 C 82 18 138/70 H 95 03/11/17 08:00 03/11/17 08:00 03/11/17 08:00 03/11/17 08:00 03/11/17 08:00 Laboratory Results 03/11/17 04:50 03/11/17 04:50 03/10/17 03/11/17 03/12/17 05:59 05:59 05:59 Intake Total 2346 700 Output Total 2300 2825 750 Balance 46 -2125 -750 PT 14.1 SEC (12.0-15.0) 03/04/17 08:50 INR 1.10 (0.83-1.16) 03/04/17 08:50 ICD10 Worksheet Patient Problems: Problems Problem Status Onset Cellulitis of foot, right Acute Methicillin resistant Staphylococcus aureus infection Acute ~03/04/17 Severe sepsis Acute Abscess of left leg Acute Altered mental status Acute Anemia Acute Cellulitis in diabetic foot Acute Cellulitis of lower extremity Acute Failure to thrive Acute Fever Acute Lower limb ulcer, heel or midfoot Acute MRSA (methicillin resistant Staphylococcus aureus) Acute 10/10/14 Osteomyelitis of ankle or foot, right, acute Acute Sepsis Acute Uremia Acute
--- NOTE | 2017-03-11 20:36 | HOSPPROG ---
Hospitalist Progress Note Assessment/Plan: The patient is a female with PMH COPD, morbid obesity, Charcot foot, diabetes mellitus type 2 who was admitted for right foot wound. ASSESSMENT/PLAN: RLE hematoma, s/p surgical drainage and debridement, wound vac Acute blood loss anemia, s/p 1u PRBC Chronic AC - on hold. IJ DVT DM2 Morbid obesity -Wound RN and Gen Surg to reassess wound on Monday, possibly to do BKA surgery. -Hold warfarin for potential surgery. -Pt refusing Lovnoex for VTE ppx, Refused to discuss the matter w/ me -Hgb stable, recheck in AM, will transfuse if hgb < 7 VTE prophylaxis: Lovenox. Patient is refusing injections. Code Status: DNR Status: Inpatient for greater than 2 midnight stay. Disposition: [facility] with discharge not anticipated soon. ____ SUBJECTIVE: Today patient has no new complaints. OBJECTIVE: Physical Exam: General: The patient is a morbidly obese middle-aged female who is alert and in no acute distress. HEENT: normocephalic, extraocular movements intact, conjunctivae clear. Mucous membranes moist. Neck: trachea midline, no visible masses. CV: +S1/S2, RRR, no MRG. Resp: unlabored, CTAB no RRW. Abd: soft and nondistended. Musculoskeletal: Normal muscle tone/bulk. Right foot is in a soft boot. Neuro: cranial nerves II XII grossly intact. Intact gross motor and sensory function. Psych: irritable mood and appropriate affect. Skin: Mild pallor. No petechiae. Labs/Imaging/Other Tests: Personally reviewed/interpreted. This patient is new to me. Reviewed patient's chart/records for this visit. Objective: Vital Signs Temp Pulse Resp BP Pulse Ox 36.7 C 87 18 127/71 H 96 03/11/17 19:42 03/11/17 19:42 03/11/17 19:42 03/11/17 19:42 03/11/17 19:42 Laboratory Results 03/11/17 04:50 03/11/17 04:50 03/10/17 03/11/17 03/12/17 05:59 05:59 05:59 Intake Total 2346 700 Output Total 2300 2825 750 Balance 46 -2125 -750 PT 14.1 SEC (12.0-15.0) 03/04/17 08:50 INR 1.10 (0.83-1.16) 03/04/17 08:50 ICD10 Worksheet Patient Problems: Problems Problem Status Onset Cellulitis of foot, right Acute Methicillin resistant Staphylococcus aureus infection Acute ~03/04/17 Severe sepsis Acute Abscess of left leg Acute Altered mental status Acute Anemia Acute Cellulitis in diabetic foot Acute Cellulitis of lower extremity Acute Failure to thrive Acute Fever Acute Lower limb ulcer, heel or midfoot Acute MRSA (methicillin resistant Staphylococcus aureus) Acute 10/10/14 Osteomyelitis of ankle or foot, right, acute Acute Sepsis Acute Uremia Acute
[2017-03-11] MEDS: ENOXAPARIN 40 MG/0.4 ML SYR SC SCH (20:40)
[2017-03-11] MEDS: traZODone 50 MG TAB PO SCH (20:42)
[2017-03-12 06:38] LABS: HEMATOCRIT 21.7 % (38.0-47.0); MEAN CELL HEMOGLOBIN 26.9 pg (27.9-34.1); MEAN CELL HEMOGLOBIN CONCENTR. 30.9 g/dL (32.4-36.7); MEAN CELL VOLUME 87.1 fL (81.5-99.8); RED BLOOD CELL COUNT 2.49 10^6/uL (4.18-5.33); RED CELL DISTRIBUTION WIDTH 15.3 % (11.5-15.2)
[2017-03-12 06:40] LABS: HEMOGLOBIN 6.7 g/dL (12.6-16.3)
[2017-03-12] MEDS: DICLOFENAC SODIUM 1% 100 GM GEL TP SCH ×4 (07:53→19:26)
[2017-03-12] MEDS ORDERED: INSULIN GLARGINE 100 UNITS/ML SYRINGE SC SCH ×2 (09:00→21:00)
[2017-03-12] MEDS: DULoxetine 30 MG CAP PO SCH ×2 (09:40→20:54)
[2017-03-12] MEDS: PANTOPRAZOLE SODIUM 40 MG TAB PO SCH (09:40)
[2017-03-12] MEDS: GABAPENTIN 400 MG CAP PO SCH ×2 (09:40→20:54)
[2017-03-12] MEDS: CITALOPRAM 20 MG TAB PO SCH (09:40)
[2017-03-12] MEDS: LEVOTHYROXINE 200 MCG TAB PO SCH (09:41)
[2017-03-12] MEDS: DAPTOmycin 800 MG in NS 100 ML IV SCH (09:41)
[2017-03-12] MEDS: INSULIN GLARGINE 100 UNITS/ML SYRINGE SC SCH (09:41)
[2017-03-12] MEDS: PREGABALIN 50 MG CAP PO SCH ×3 (09:41→20:53)
[2017-03-12] MEDS: GABAPENTIN 300 MG CAP PO SCH ×2 (09:41→20:54)
[2017-03-12] MEDS: HYDROmorphONE/DILAUDID 4 MG TAB PO PRN ×3 (09:44→20:52)
[2017-03-12] MEDS: ENOXAPARIN 40 MG/0.4 ML SYR SC SCH ×2 (10:07→21:00)
[2017-03-12 10:46] LABS: HEMATOCRIT 22.3 % (38.0-47.0)
[2017-03-12 10:50] LABS: HEMOGLOBIN 6.9 g/dL (12.6-16.3)
--- NOTE | 2017-03-12 11:52 | SOAPPROG ---
AVERY Progress Note Assessment/Plan: Assessment: Patient seen yesterday 56-year-old diabetic with Charcot's deformities of both feet. Right foot with open ulceration and osteomyelitis of the calcaneus complicated by some swelling in her calf. Likely will need a BK amputation although with her anatomy that may be a difficult operation with the large swollen fat right lower extremity Risks and options were fully discussed with the patient and we will proceed with evaluation for BKA Plan: Noninvasive arterial studies to evaluate potential healing of a BK amputation 03/11/17 03:37 03/11/17 17:19 DOING WELL TODAY AND COMFORTABLE WITH HER DECISION FOR RIGHT BKA/ARE STUDIES PENDING/AFEBRILE/STILL MODERATE EDEMA OF THE RIGHT CALF PLAN ARTERIAL EVALUATION AND ULTRASOUND TO RULE OUT DVT 03/12/17 11:49 BLOOD SUGAR CONTROL GOOD/HEMATOCRIT 21/AWAIT NONINVASIVE ARCH STUDIES/ PLAN IS BK AMPUTATION IN THE A.M./RISKS AND OPTIONS AGAIN FULLY DISCUSSED 03/12/17 14:49 ARCH STUDIES SHOW EXCELLENT BLOOD FLOW DOWN TO THE METATARSAL LEVEL WITH ANKLE- BRACHIAL INDICES GREATER THAN 1 WHICH SHOULD CORRELATE WITH EXCELLENT HEALING AT A BK LEVEL Objective: Vital Signs Temp Pulse Resp BP Pulse Ox 36.7 C 80 18 130/61 H 100 03/11/17 19:42 03/12/17 08:00 03/12/17 08:00 03/12/17 08:00 03/12/17 08:00 Microbiology 03/06/17 17:00 Blood Culture - Final Blood 03/06/17 16:58 Blood Culture - Final Blood Laboratory Results 03/12/17 10:35 03/11/17 04:50 03/11/17 03/12/17 03/13/17 05:59 05:59 05:59 Intake Total 700 Output Total 2825 2100 Balance -5 -2100 PT 14.1 SEC (12.0-15.0) 03/04/17 08:50 INR 1.10 (0.83-1.16) 03/04/17 08:50 ICD10 Worksheet Patient Problems: Problems Problem Status Onset Cellulitis of foot, right Acute Methicillin resistant Staphylococcus aureus infection Acute ~03/04/17 Osteomyelitis of right foot Acute Severe sepsis Acute Abscess of left leg Acute Altered mental status Acute Anemia Acute Cellulitis in diabetic foot Acute Cellulitis of lower extremity Acute Failure to thrive Acute Fever Acute Lower limb ulcer, heel or midfoot Acute MRSA (methicillin resistant Staphylococcus aureus) Acute 10/10/14 Osteomyelitis of ankle or foot, right, acute Acute Sepsis Acute Uremia Acute - ICD10 Problem Qualifiers (1) Osteomyelitis of right foot
[2017-03-12] MEDS: INSULIN REGULAR HUMAN 100 UNIT/ML SC SCH ×3 (12:09→17:35)
[2017-03-12] MEDS ORDERED: FUROSEMIDE 40 MG/4 ML VIAL IVP ONE (16:17)
[2017-03-12 16:36] LABS: HEMOGLOBIN 7.8 g/dL (12.6-16.3)
[2017-03-12] MEDS: ASPIRIN 81 MG CHEWABLE TAB PO SCH (19:28)
[2017-03-12] MEDS: clonazePAM 0.5 MG TAB PO PRN (20:53)
[2017-03-12] MEDS: PROMETHAZINE HCL 25 MG TAB PO PRN (20:53)
[2017-03-12] MEDS: traZODone 50 MG TAB PO SCH (20:54)
[2017-03-12] MEDS: LORazepam 0.5 MG TAB PO PRN (20:54)
--- NOTE | 2017-03-12 21:04 | HOSPPROG ---
Hospitalist Progress Note Assessment/Plan: The patient is a female with PMH COPD, morbid obesity, Charcot foot, diabetes mellitus type 2 who was admitted for right foot wound. R foot cellulitis, myositis - MRSA, proteus, Group A strep R heel pressure ulcer, St 3, present on admission Charcot foot deformity DM type 2, poorly controlled Hypoglycemic episodes Anemia, s/p 2u PRBC Morbid Obesity COPD, on 4L O2 baseline Chronic pain w/ opiate dependence Severe sepsis, resolved - Group A Strep. ADILSON on CKD, resolved Resp arrest on admission, resolved Metabolic encephalopathy, resolved -R BKA surg planned for Monday. -Pt requesting IV anxiolytic prior to being transferred to PACU, says she will have meltdown w/o it. Ordered 1 dose Ativan prn anxiety. -transfused 1u PRBC today for hgb<7. -IV Abx. -Decreasing Lantus for npo for surgery. -Holding aspirin for surgery. VTE prophylaxis: Pt refused Lovenox. Code Status: DNR Status: Inpatient for greater than 2 midnight stay. Disposition: [facility] with discharge not anticipated soon. ____ SUBJECTIVE: Today patient has no new complaints. OBJECTIVE: Physical Exam: General: The patient is a morbidly obese middle-aged female who is alert and in no acute distress. HEENT: normocephalic, extraocular movements intact, conjunctivae clear. Mucous membranes moist. Neck: trachea midline, no visible masses. CV: +S1/S2, RRR, no MRG. Resp: unlabored, CTAB no RRW. Abd: soft and nondistended. Musculoskeletal: Normal muscle tone/bulk. Right foot is in a soft boot. Neuro: cranial nerves II XII grossly intact. Intact gross motor and sensory function. Psych: irritable mood and appropriate affect. Skin: Mild pallor. No petechiae. Labs/Imaging/Other Tests: Personally reviewed/interpreted. Objective: Vital Signs Temp Pulse Resp BP Pulse Ox 36.7 C 84 16 141/66 H 92 03/12/17 19:31 03/12/17 19:31 03/12/17 19:31 03/12/17 19:31 03/12/17 19:31 Microbiology 03/06/17 17:00 Blood Culture - Final Blood 03/06/17 16:58 Blood Culture - Final Blood Laboratory Results 03/12/17 16:30 03/11/17 04:50 03/11/17 03/12/17 03/13/17 05:59 05:59 05:59 Intake Total 700 810 Output Total 2825 2100 700 Balance -2124 -2099 110 PT 14.1 SEC (12.0-15.0) 03/04/17 08:50 INR 1.10 (0.83-1.16) 03/04/17 08:50 ICD10 Worksheet Patient Problems: Problems Problem Status Onset Cellulitis of foot, right Acute Methicillin resistant Staphylococcus aureus infection Acute ~03/04/17 Osteomyelitis of right foot Acute Severe sepsis Acute Abscess of left leg Acute Altered mental status Acute Anemia Acute Cellulitis in diabetic foot Acute Cellulitis of lower extremity Acute Failure to thrive Acute Fever Acute Lower limb ulcer, heel or midfoot Acute MRSA (methicillin resistant Staphylococcus aureus) Acute 10/10/14 Osteomyelitis of ankle or foot, right, acute Acute Sepsis Acute Uremia Acute
[2017-03-13] MEDS: DICLOFENAC SODIUM 1% 100 GM GEL TP SCH ×4 (05:08→20:26)
[2017-03-13 05:22] LABS: ADD DIFF? YES; ADD MORPH? NO; ADD SCAN? NO; ATYPICAL LYMPHOCYTE FLAG 0 (0-99); FRAGMENT RBC FLAG 0 (0-99); HEMATOCRIT 25.6 % (38.0-47.0); HEMOGLOBIN 8.1 g/dL (12.6-16.3); LEFT SHIFT FLG 60 (0-99); LIPEMIA HEMOLYSIS FLAG 80 (0-99); MEAN CELL HEMOGLOBIN 27.1 pg (27.9-34.1); MEAN CELL HEMOGLOBIN CONCENTR. 31.6 g/dL (32.4-36.7); MEAN CELL VOLUME 85.6 fL (81.5-99.8); MEAN PLATELET VOLUME 9.1 fL (8.7-11.7); PLATELET CLUMPS FLAG 10 (0-99); PLATELET COUNT 272 10^3/uL (150-400); RED BLOOD CELL COUNT 2.99 10^6/uL (4.18-5.33); RED CELL DISTRIBUTION WIDTH 15.2 % (11.5-15.2)
[2017-03-13 05:35] LABS: ANION GAP 8 mEq/L (8-16); CALCIUM 8.5 mg/dL (8.5-10.4); CARBON DIOXIDE 32 mEq/l (22-31); CHLORIDE 99 mEq/L (97-110); CREATININE 1.3 mg/dL (0.6-1.0); GLOMERULAR FILTRATION RATE 43; GLUCOSE 151 mg/dL (70-100); POTASSIUM 4.7 mEq/L (3.5-5.2); SODIUM 139 mEq/L (134-144)
[2017-03-13] MEDS ORDERED: LORazepam 2 MG/ML INJ IVP PRN (06:00)
[2017-03-13 06:13] LABS: MICROCYTES 1+; PLATELET ESTIMATE ADEQUATE (ADEQ)
[2017-03-13] MEDS ORDERED: BUPIVACAINE 0.5% 30 ML SDV ONE (07:59)
[2017-03-13] MEDS ORDERED: LR 1,000 ML IV ONE (08:36)
[2017-03-13] MEDS ORDERED: NS 1,000 ML IV ONE (08:46)
[2017-03-13] MEDS ORDERED: MIDAZOLAM 2 MG/2 ML VIAL IVP ONE (08:49)
--- NOTE | 2017-03-13 08:51 | PDANEPAE ---
ANE History of Present Illness r diabetic foot infection ANE Past Medical History - Cardiovascular History Hx Hypertension: Yes - Pulmonary History Hx COPD: Yes Hx Oxygen in Use at Home: Yes O2 in Use at Home (L/minute): 4 Hx Sleep Apnea: Yes Sleep Apnea Screening Result - Last Documented: Positive - Endocrine History Hx Diabetes: Yes Hypothyroid: Yes - Chronic Pain History Chronic Pain: Yes ANE Review of Systems Review of Systems: - Exercise capacity METS (RN): 1 METS ANE Patient History - Allergies Allergies/Adverse Reactions: No Known Allergies Allergy (Verified 11/26/16 04:59) - Home Medications Home Medications: Acetaminophen [Tylenol 325mg (*)] 325 mg PO Q6 PRN 11/01/16 [Last Taken 10/30/16 ] DULoxetine [Cymbalta 30 MG (*)] 30 mg PO BID 11/01/16 [Last Taken 03/03/17] Gabapentin [Neurontin 300 MG (*)] 300 mg PO BID 11/01/16 [Last Taken 03/03/17] HYDROmorphone HCL [Dilaudid 4 mg (*)] 10 mg PO TUTHSA PRN 11/01/16 [Last Taken 03/02/17] Insulin Detemir [Levemir] 50 unit SQ DAILY 11/01/16 [Last Taken 03/03/17] Levothyroxine [Synthroid 200 mcg (*)] 200 mcg PO DAILY 11/01/16 [Last Taken ] Losartan Potassium [Cozaar 25 mg (*)] 25 mg PO DAILY 11/01/16 [Last Taken ] Pregabalin [Lyrica 50mg (*)] 50 mg PO TID 11/01/16 [Last Taken 03/03/17] clonazePAM [Klonopin (*)] 0.5 mg PO BID PRN 11/01/16 [Last Taken 03/03/17] fentaNYL [Duragesic 75 MCG Patch (*)] 75 mcg TD Q72H 11/01/16 [Last Taken ] traZODone [traZODONE 50MG (*)] 50 mg PO HS 11/01/16 [Last Taken 03/03/17] Alteplase [Cathflo Activase 2 mg (*)] 2 mg IVP DAILY PRN 03/04/17 [Last Taken Unknown] Aspirin [Aspirin 81mg (*)] 81 mg PO DAILY 03/04/17 [Last Taken 03/03/17] Bisacodyl [Dulcolax] 10 mg RC DAILY PRN 03/04/17 [Last Taken Unknown] Calcium Carbonate [Tums 500MG (*)] 1,000 mg PO Q4H PRN 03/04/17 [Last Taken Unknown] Diclofenac Sodium 1% [Voltaren Gel (*)] 2 gm TP QID 03/04/17 [Last Taken ] Gabapentin [Neurontin 400 MG (*)] 400 mg PO BID 03/04/17 [Last Taken 03/03/17] HYDROmorphone HCL [Dilaudid 4 mg (*)] 8 mg PO Q4H PRN 03/04/17 [Last Taken 03/03] Ibuprofen [Motrin (*)] 600 mg PO Q8H PRN 03/04/17 [Last Taken 03/01/17] Insulin Detemir [Levemir] 63 unit SQ HS 03/04/17 [Last Taken 03/03/17] Insulin Lispro [humALOG LISPRO 100 units/ml (*)] 5 unit SC TIDMEAL 03/04/17 [ Last Taken 03/03/17] Insulin Lispro [humALOG LISPRO 100 units/ml (*)] 5 unit SC TIDMEAL PRN 03/04/17 [Last Taken 03/03/17] Ipratropium/Albuterol [Duoneb (*)] 3 ml IH Q6H PRN 03/04/17 [Last Taken Unknown] Magnesium Hydroxide [Milk of Magnesia] 30 ml PO DAILY PRN 03/04/17 [Last Taken Unknown] Nystatin Powder [Mycostatin Powder] 1 abi TP Q8H PRN 03/04/17 [Last Taken Unknown] Omeprazole Magnesium [Prilosec Otc] 20 mg PO DAILY 03/04/17 [Last Taken 03/03/17 ] Phenylephrine/Shk Lv/Mo/Pet,Wh [Preparation H Oint] 1 abi AK Q6H PRN 03/04/17 [ Last Taken 02/20/17] Polyethylene Glycol 3350 [Miralax 17 gm (*)] 17 gm PO BID PRN 03/04/17 [Last Taken 02/20/17] Promethazine HCl [Phenergan 25mg (*)] 25 mg PO BID PRN 03/04/17 [Last Taken ] Sennosides/Docusate Sodium [Senna-Docusate Sodium Tablet] 2 tab PO BID PRN 03/04 [Last Taken Unknown] - NPO status NPO Since - Liquids (Date): 03/13/17 NPO Since - Liquids (Time): 00:05 NPO Since - Solids (Date): 03/13/17 NPO Since - Solids (Time): 00:05 - Smoking Hx Smoking Status: Former smoker ANE Labs/Vital Signs - Labs Result Diagrams: 03/13/17 04:52 03/13/17 04:52 - Vital Signs Blood Pressure: 137/84 Heart Rate: 77 Respiratory Rate: 14 O2 Sat (%): 92 Height: 170.18 cm Weight: 129.8 kg ANE Physical Exam - Airway Neck exam: decreased ROM Mallampati Score: Class 3 Mouth exam: normal dental/mouth exam - Pulmonary Pulmonary: no respiratory distress - Cardiovascular Cardiovascular: regular rate and rhythym - ASA Status ASA Status: IV ANE Anesthesia Plan Anesthesia Plan: general endotracheal anesthesia Specialized Airway: video laryngoscope
[2017-03-13] MEDS ORDERED: SUCCINYLCHOLINE CHLORIDE*ANESTHESIA ONLY*200 MG/10 ML SYR IVP ONE (08:53)
[2017-03-13] MEDS ORDERED: ROCURONIUM 50 MG/5 ML VIAL ONE (08:53)
[2017-03-13] MEDS ORDERED: fentaNYL 100 MCG/2 ML INJ ONE ×4 (08:54→12:17)
[2017-03-13] MEDS ORDERED: PROPOFOL 200 MG/20 ML VIAL ONE (08:54)
--- NOTE | 2017-03-13 09:06 | SOAPPROG ---
SOAP Progress Note Assessment/Plan: Assessment: 56 yo F with charcot's deformity of bilateral feet and right foot ulceration and osteomyelitis requiring BKA Plan is for OR today for BKA NPO Cont pain control S: pt seen today while in pre-op. Her questions regarding the procedure were answered to her satisfaction. O: Afebrile Pt lying in bed, NAD RLE erythematous and edematous 03/13/17 09:06 Objective: Vital Signs Temp Pulse Resp BP Pulse Ox 37.0 C 77 14 137/84 H 92 03/13/17 08:44 03/13/17 08:51 03/13/17 08:51 03/13/17 08:51 03/13/17 08:51 Microbiology 03/06/17 17:00 Blood Culture - Final Blood 03/06/17 16:58 Blood Culture - Final Blood Laboratory Results 03/13/17 04:52 03/13/17 04:52 03/12/17 03/13/17 03/14/17 05:59 05:59 05:59 Intake Total 1210 Output Total 2100 4400 Balance -2100 -3190 PT 14.1 SEC (12.0-15.0) 03/04/17 08:50 INR 1.10 (0.83-1.16) 03/04/17 08:50 ICD10 Worksheet Patient Problems: Problems Problem Status Onset Cellulitis of foot, right Acute Methicillin resistant Staphylococcus aureus infection Acute ~03/04/17 Osteomyelitis of right foot Acute Severe sepsis Acute Abscess of left leg Acute Altered mental status Acute Anemia Acute Cellulitis in diabetic foot Acute Cellulitis of lower extremity Acute Failure to thrive Acute Fever Acute Lower limb ulcer, heel or midfoot Acute MRSA (methicillin resistant Staphylococcus aureus) Acute 10/10/14 Osteomyelitis of ankle or foot, right, acute Acute Sepsis Acute Uremia Acute
[2017-03-13] MEDS ORDERED: HYDROmorphONE/DILAUDID 2 MG/ML INJ ONE (09:24)
[2017-03-13] MEDS ORDERED: ONDANSETRON 4 MG/2 ML VIAL ONE (09:52)
[2017-03-13] MEDS ORDERED: ONDANSETRON 4 MG/2 ML VIAL IVP PRN (10:28)
[2017-03-13] MEDS ORDERED: MEPERIDINE 25 MG/ML SYR IVP PRN (10:28)
[2017-03-13] MEDS ORDERED: ALBUTEROL 3 ML DEYVIAL IH PRN (10:28)
[2017-03-13] MEDS ORDERED: HYDROCODONE/APAP 5/325 TAB PO PRN (10:28)
[2017-03-13] MEDS ORDERED: NALOXONE HCL 0.4 MG/ML INJ IVP PRN ×3 (10:28→13:23)
[2017-03-13] MEDS ORDERED: PROMETHAZINE HCL 25 MG/ML INJ IVP PRN (10:28)
[2017-03-13] MEDS ORDERED: fentaNYL 100 MCG/2 ML INJ IVP PRN (10:28)
--- NOTE | 2017-03-13 10:29 | HOSPPROG ---
Hospitalist Progress Note Assessment/Plan: DIAGNOSES: Severe sepsis with multisystem organ failure, resolved, due to R foot cellulitis , myositis - MRSA, proteus, Group A strep R heel pressure ulcer/Charcot foot deformity, St 3, present on admission Resp arrest on admission, resolved ADILSON on CKD, resolved Metabolic encephalopathy, resolved DM type 2, poorly controlled and with Hypoglycemic episodes Anemia, s/p 2u PRBC Morbid Obesity COPD, on 4L O2 baseline Chronic pain w/ opiate dependence PLANS: -to OR today for BKA -continue IV abx as she had strep bacteremia but will review duration with ID and surg -will follow sugars and Hg closely -will review meds post op, adjust as indicated SUBJECTIVE: OBJECTIVE Vitals reviewed: stble without fever Exam: alert oriented skin warm dry color ok resps not labored lungs clear BSs heart regular abd soft nondistended nontender, bowel sounds present limbs warm, no edema iv site ok Objective: Vital Signs Temp Pulse Resp BP Pulse Ox 37.0 C 77 14 137/84 H 92 03/13/17 08:44 03/13/17 08:51 03/13/17 08:51 03/13/17 08:51 03/13/17 08:51 Microbiology 03/06/17 17:00 Blood Culture - Final Blood 03/06/17 16:58 Blood Culture - Final Blood Laboratory Results 03/13/17 04:52 03/13/17 04:52 03/12/17 03/13/17 03/14/17 06:59 06:59 06:59 Intake Total 1210 Output Total 2100 4400 Balance -2100 -3190 PT 14.1 SEC (12.0-15.0) 03/04/17 08:50 INR 1.10 (0.83-1.16) 03/04/17 08:50 ICD10 Worksheet Patient Problems: Problems Problem Status Onset Cellulitis of foot, right Acute Methicillin resistant Staphylococcus aureus infection Acute ~03/04/17 Osteomyelitis of right foot Acute Severe sepsis Acute Abscess of left leg Acute Altered mental status Acute Anemia Acute Cellulitis in diabetic foot Acute Cellulitis of lower extremity Acute Failure to thrive Acute Fever Acute Lower limb ulcer, heel or midfoot Acute MRSA (methicillin resistant Staphylococcus aureus) Acute 10/10/14 Osteomyelitis of ankle or foot, right, acute Acute Sepsis Acute Uremia Acute
--- NOTE | 2017-03-13 11:07 | POSTOPPROG ---
Post Op Note Date of Operation: 03/13/17 Surgeon: Adonis Telles Technical Support Agent: Lashell Brenner Anesthesiologist: Gerry Fontaine Anesthesia: GET(General Endotracheal) Pre-op Diagnosis: osteomyelitis, calcaneal ulcer, cellulitis Post-op Diagnosis: same Procedure: R BKA Findings: viable flap, tourniquet and esmark used Inf/Abcess present in the surg proc area at time of surgery?: Yes Depth: Deep Incisional (Fascial) EBL: Minimal Complications: none Drains: Flip Evans Specimen(s): R LILLIE to pathology
--- NOTE | 2017-03-13 11:25 | POSTANESTH ---
Post Anesthetic Evaluation Cardiovascular Status: Normal, Stable Respiratory Status: Other, See Comment Level of Consciousness/Mental Status: Can Participate in Eval Pain Control: Adequate, Prn Tx Ordered Nausea/Vomiting Control: Adequate, Prn Tx Ordered Complications Possibly Related to Anesthesia: None Noted (Pt given albuterol for wheezing)
[2017-03-13] MEDS ORDERED: HYDROmorphONE/DILAUDID 1 MG/ML INJ ONE (11:26)
[2017-03-13] MEDS: HYDROmorphONE/DILAUDID 1 MG/ML INJ IVP SCH ×2 (11:30→11:40)
[2017-03-13] MEDS ORDERED: HYDROmorphONE/DILAUDID 1 MG/ML INJ IVP PRN (11:43)
[2017-03-13] MEDS ORDERED: HYDROmorphONE/DILAUDID 2 MG TAB ONE (11:55)
[2017-03-13] MEDS: HYDROmorphONE/DILAUDID 4 MG TAB PO PRN ×3 (12:00→20:22)
[2017-03-13] MEDS: INSULIN REGULAR HUMAN 100 UNIT/ML SC SCH ×3 (12:05→18:47)
[2017-03-13] MEDS: CITALOPRAM 20 MG TAB PO SCH (12:05)
[2017-03-13] MEDS: GABAPENTIN 400 MG CAP PO SCH ×4 (12:06→20:25)
[2017-03-13] MEDS: INSULIN GLARGINE 100 UNITS/ML SYRINGE SC SCH ×2 (12:06→20:32)
[2017-03-13] MEDS: DAPTOmycin 800 MG in NS 100 ML IV SCH (12:06)
[2017-03-13] MEDS: GABAPENTIN 300 MG CAP PO SCH ×4 (12:06→20:25)
[2017-03-13] MEDS: DULoxetine 30 MG CAP PO SCH ×2 (12:06→20:25)
[2017-03-13] MEDS: PREGABALIN 50 MG CAP PO SCH ×3 (12:07→20:25)
[2017-03-13] MEDS: PANTOPRAZOLE SODIUM 40 MG TAB PO SCH (12:07)
[2017-03-13] MEDS: LEVOTHYROXINE 200 MCG TAB PO SCH (12:07)
[2017-03-13] MEDS: HYDROmorphONE/DILAUDID 1 MG/ML INJ IVP PRN (13:13)
[2017-03-13] MEDS: HYDROmorphONE/DILAUDID 6 MG/30 ML PCA IV PRN (14:00)
--- NOTE | 2017-03-13 14:34 | PCMIDPN ---
Assessment/Plan: Assessment/Plan: * Sepsis due to group A strep bacteremia associated with right heel calcaneal osteomyelitis status post BKA today: Foot cultures polymicrobial including MRSA. Now that BKA performed, think can resume therapy targeting primarily group A Streptococcus. Will resume ceftriaxone once daily with anticipated 10 days of therapy post clearance of blood cultures (end date 03/16/2017). 03/13/17 14:31 03/13/17 14:33 Subjective: Patient complains of right lower extremity pain post BKA. Objective: Vital Signs Temp Pulse Resp BP Pulse Ox 36.7 C 87 20 115/59 L 97 03/13/17 14:06 03/13/17 14:06 03/13/17 14:06 03/13/17 14:06 03/13/17 14:06 Laboratory Results 03/13/17 04:52 03/13/17 04:52 03/12/17 03/13/17 03/14/17 05:59 05:59 05:59 Intake Total 1210 950 Output Total 2100 4400 385 Balance -2100 -3190 565 Daptomycin # 5 Blood cultures 03/06/2017 no growth - Physical Exam General Appearance: alert, no apparent distress EENT: No scleral icterus, No thrush Cardiac/Chest: regular rate, rhythm Extremities: other (BKA site dressed postoperatively; no cellulitis above dressing) Abdomen: non-tender, No distended ICD10 Worksheet Patient Problems: Problems Problem Status Onset Cellulitis of foot, right Acute Methicillin resistant Staphylococcus aureus infection Acute ~03/04/17 Osteomyelitis of right foot Acute Severe sepsis Acute Abscess of left leg Acute Altered mental status Acute Anemia Acute Cellulitis in diabetic foot Acute Cellulitis of lower extremity Acute Failure to thrive Acute Fever Acute Lower limb ulcer, heel or midfoot Acute MRSA (methicillin resistant Staphylococcus aureus) Acute 10/10/14 Osteomyelitis of ankle or foot, right, acute Acute Sepsis Acute Uremia Acute
[2017-03-13] MEDS: fentaNYL 75 MCG PATCH TD SCH (16:02)
[2017-03-13] MEDS: ACETAMINOPHEN 325 MG TAB PO PRN (17:23)
[2017-03-13] MEDS: clonazePAM 0.5 MG TAB PO PRN (17:23)
[2017-03-13] MEDS: traZODone 50 MG TAB PO SCH (20:25)
[2017-03-14] MEDS: HYDROmorphONE/DILAUDID 4 MG TAB PO PRN ×5 (00:50→17:35)
[2017-03-14] MEDS: HYDROmorphONE/DILAUDID 6 MG/30 ML PCA IV PRN ×2 (02:30→17:21)
[2017-03-14] MEDS: DICLOFENAC SODIUM 1% 100 GM GEL TP SCH ×4 (05:41→21:54)
[2017-03-14 07:28] LABS: ANION GAP 8 mEq/L (8-16); CALCIUM 8.6 mg/dL (8.5-10.4); CARBON DIOXIDE 30 mEq/l (22-31); CHLORIDE 100 mEq/L (97-110); CREATININE 1.4 mg/dL (0.6-1.0); GLOMERULAR FILTRATION RATE 39; GLUCOSE 102 mg/dL (70-100); POTASSIUM 5.2 mEq/L (3.5-5.2); SODIUM 138 mEq/L (134-144)
[2017-03-14] MEDS: GABAPENTIN 300 MG CAP PO SCH ×2 (09:11→21:07)
[2017-03-14] MEDS: LEVOTHYROXINE 200 MCG TAB PO SCH (09:11)
[2017-03-14] MEDS: DULoxetine 30 MG CAP PO SCH ×2 (09:11→21:08)
[2017-03-14] MEDS: CITALOPRAM 20 MG TAB PO SCH (09:11)
[2017-03-14] MEDS: PANTOPRAZOLE SODIUM 40 MG TAB PO SCH (09:11)
[2017-03-14] MEDS: GABAPENTIN 400 MG CAP PO SCH ×2 (09:11→21:07)
[2017-03-14] MEDS: PREGABALIN 50 MG CAP PO SCH ×3 (09:11→21:07)
[2017-03-14] MEDS: DAPTOmycin 800 MG in NS 100 ML IV SCH (09:30)
[2017-03-14] MEDS: ENOXAPARIN 40 MG/0.4 ML SYR SC SCH ×3 (09:37→21:20)
[2017-03-14] MEDS: INSULIN GLARGINE 100 UNITS/ML SYRINGE SC SCH ×2 (09:47→23:22)
[2017-03-14] MEDS: POLYETHYLENE GLYCOL 3350 17 GM PKT PO PRN (09:49)
[2017-03-14] MEDS: INSULIN REGULAR HUMAN 100 UNIT/ML SC SCH ×3 (10:11→17:37)
--- NOTE | 2017-03-14 10:14 | PCMIDPN ---
Assessment/Plan: Assessment/Plan: 1. Group A strep bacteremia: - Currently on Dapto -f/u blood cx from 03/06 ngtd -End date on 03/16/17 to complete two weeks therapy post negative cultures. 2. Polymicrobial wound infection/ possible osteomyelitis/cellulitis:s/p right BKA - Cx with proteus, MRSA, Group A strep - s/p BKa -short course of antibiotics only. Meds dapto 800mg daily- 03/09/17 Subjective: afebrile. intermittently tearful. states remaining right leg is painful. She denies sob, abd pain. hasn't moved bowels in a couple of days. Objective: Vital Signs Temp Pulse Resp BP Pulse Ox 37.8 C 105 H 18 151/79 H 94 03/14/17 07:21 03/14/17 07:21 03/14/17 07:21 03/14/17 07:21 03/14/17 07:21 Laboratory Results 03/14/17 05:50 03/14/17 05:50 03/13/17 03/14/17 03/15/17 05:59 05:59 05:59 Intake Total 1210 1200 Output Total 4400 750 Balance -3190 450 - Physical Exam General Appearance: alert, no apparent distress Respiratory: lungs clear Cardiac/Chest: regular rate, rhythm Extremities: other (right BKA in operative dressing) Abdomen: normal bowel sounds, non-tender, soft, No distended Skin: No erythema ICD10 Worksheet Patient Problems: Problems Problem Status Onset Cellulitis of foot, right Acute Methicillin resistant Staphylococcus aureus infection Acute ~03/04/17 Osteomyelitis of right foot Acute Severe sepsis Acute Abscess of left leg Acute Altered mental status Acute Anemia Acute Cellulitis in diabetic foot Acute Cellulitis of lower extremity Acute Failure to thrive Acute Fever Acute Lower limb ulcer, heel or midfoot Acute MRSA (methicillin resistant Staphylococcus aureus) Acute 10/10/14 Osteomyelitis of ankle or foot, right, acute Acute Sepsis Acute Uremia Acute
--- NOTE | 2017-03-14 10:35 | SOAPPROG ---
SOAP Progress Note Assessment/Plan: Assessment/Plan: 56 Y obese F hx chronic opioid use s/p R BKA for osteomyelitis , cellulitis, Charcot foot deformity, large calcaneal ulcer, POD#1. C/o pain but refusing her normal pain meds (see below). 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 Plan for dressing change tomorrow. Continue to encourage bowel protocol meds. H&H largely stable. Appreciate medicine and ID input. S: refusing to take pain meds from her nurse. asking for new nurse. not willing to discuss matter further. nursing staff trying to work with her, but she's not very cooperative today. denies emotional distress from surgery. O: alert, nad no wob abd soft ext BKA stump well dressed without any shadowing or saturation. DAQUAN drain serosanguinous. no erythema or warmth proximal to dressing. 03/14/17 10:30 Objective: Vital Signs Temp Pulse Resp BP Pulse Ox 37.6 C 106 H 16 143/78 H 93 03/14/17 10:00 03/14/17 10:00 03/14/17 10:00 03/14/17 10:00 03/14/17 10:00 Laboratory Results 03/14/17 05:50 03/14/17 05:50 03/13/17 03/14/17 03/15/17 05:59 05:59 05:59 Intake Total 1210 1200 Output Total 4400 750 600 Balance -3190 450 -600 PT 14.1 SEC (12.0-15.0) 03/04/17 08:50 INR 1.10 (0.83-1.16) 03/04/17 08:50 ICD10 Worksheet Patient Problems: Problems Problem Status Onset Cellulitis of foot, right Acute Methicillin resistant Staphylococcus aureus infection Acute ~03/04/17 Osteomyelitis of right foot Acute Severe sepsis Acute Abscess of left leg Acute Altered mental status Acute Anemia Acute Cellulitis in diabetic foot Acute Cellulitis of lower extremity Acute Failure to thrive Acute Fever Acute Lower limb ulcer, heel or midfoot Acute MRSA (methicillin resistant Staphylococcus aureus) Acute 10/10/14 Osteomyelitis of ankle or foot, right, acute Acute Sepsis Acute Uremia Acute
--- NOTE | 2017-03-14 15:06 | ASMTCMCOM ---
CM Note CM Note Notes: Pt had below the knee amputation yesterday. PT saw pt today and is recommending SNF. Awaiting updated OT note. CM faxed over update to Keisha Coulter. JACKIE to follow. Date Signed: 03/14/2017 03:06 PM Electronically Signed By:CLAUDY Jimenez
[2017-03-14] MEDS: clonazePAM 0.5 MG TAB PO PRN (18:13)
--- NOTE | 2017-03-14 18:56 | HOSPPROG ---
Hospitalist Progress Note Assessment/Plan: DIAGNOSES: Severe sepsis with multisystem organ failure, resolved, due to R foot cellulitis , myositis - MRSA, proteus, Group A strep R heel pressure ulcer/Charcot foot deformity, St 3, present on admission Resp arrest on admission, resolved ADILSON on CKD, resolved Metabolic encephalopathy, resolved DM type 2, poorly controlled and with Hypoglycemic episodes Anemia, s/p 2u PRBC Morbid Obesity COPD, on 4L O2 baseline Chronic pain w/ opiate dependence PLANS: -continue IV abx as she had strep bacteremia but will review duration with ID and surg -will follow sugars and Hg closely SUBJECTIVE: States her leg is painful but no other symptoms acutely. She is weak and tired OBJECTIVE Vitals reviewed: stable without fever Exam: alert oriented skin warm dry color ok resps not labored lungs clear BSs heart regular abd soft nondistended nontender, bowel sounds present limbs her BKA leg has dressing in place which is dry with no evidence of bleeding through the dressing, the leg otherwise appears in good condition iv site ok Laboratory data: Sugars remain in good range on current therapy but is not her baseline therapy and will need to follow closely as her mobility and appetite returned to normal Objective: Vital Signs Temp Pulse Resp BP Pulse Ox 36.8 C 100 20 154/90 H 93 03/14/17 17:39 03/14/17 17:39 03/14/17 17:39 03/14/17 17:39 03/14/17 17:39 Laboratory Results 03/14/17 05:50 03/14/17 05:50 03/13/17 03/14/17 03/15/17 06:59 06:59 06:59 Intake Total 1210 1200 600 Output Total 4400 750 1020 Balance -3190 450 -420 PT 14.1 SEC (12.0-15.0) 03/04/17 08:50 INR 1.10 (0.83-1.16) 03/04/17 08:50 ICD10 Worksheet Patient Problems: Problems Problem Status Onset Cellulitis of foot, right Acute Methicillin resistant Staphylococcus aureus infection Acute ~03/04/17 Osteomyelitis of right foot Acute Severe sepsis Acute Abscess of left leg Acute Altered mental status Acute Anemia Acute Cellulitis in diabetic foot Acute Cellulitis of lower extremity Acute Failure to thrive Acute Fever Acute Lower limb ulcer, heel or midfoot Acute MRSA (methicillin resistant Staphylococcus aureus) Acute 10/10/14 Osteomyelitis of ankle or foot, right, acute Acute Sepsis Acute Uremia Acute
[2017-03-14] MEDS: PATCH REMOVAL 1 EA PATCH TD SCH (21:55)
[2017-03-14] MEDS: traZODone 50 MG TAB PO SCH (23:22)
[2017-03-15] MEDS: HYDROmorphONE/DILAUDID 4 MG TAB PO PRN ×3 (01:35→22:03)
[2017-03-15] MEDS: DICLOFENAC SODIUM 1% 100 GM GEL TP SCH ×4 (06:01→21:16)
[2017-03-15] MEDS: LIDOCAINE 5% 1 EA PATCH TD SCH (08:06)
[2017-03-15] MEDS: GABAPENTIN 300 MG CAP PO SCH ×2 (08:08→22:03)
[2017-03-15] MEDS: CITALOPRAM 20 MG TAB PO SCH (08:09)
[2017-03-15] MEDS: DULoxetine 30 MG CAP PO SCH ×2 (08:09→22:03)
[2017-03-15] MEDS: GABAPENTIN 400 MG CAP PO SCH ×2 (08:09→22:03)
[2017-03-15] MEDS: ENOXAPARIN 40 MG/0.4 ML SYR SC SCH ×2 (08:09→22:04)
[2017-03-15] MEDS: LEVOTHYROXINE 200 MCG TAB PO SCH (08:09)
[2017-03-15] MEDS: INSULIN GLARGINE 100 UNITS/ML SYRINGE SC SCH ×3 (08:15→23:27)
[2017-03-15] MEDS: INSULIN REGULAR HUMAN 100 UNIT/ML SC SCH ×3 (08:30→18:31)
[2017-03-15] MEDS: PREGABALIN 50 MG CAP PO SCH ×3 (08:41→22:03)
[2017-03-15] MEDS: PANTOPRAZOLE SODIUM 40 MG TAB PO SCH (08:45)
[2017-03-15] MEDS: DAPTOmycin 800 MG in NS 100 ML IV SCH (08:51)
[2017-03-15] MEDS ORDERED: HYDROmorphONE/DILAUDID 4 MG TAB PO SCH (09:00)
[2017-03-15] MEDS: PROMETHAZINE HCL 25 MG TAB PO PRN (10:33)
--- NOTE | 2017-03-15 10:33 | SOAPPROG ---
SOAP Progress Note Assessment/Plan: Assessment/Plan: 56 Y obese F hx chronic opioid use s/p R BKA for osteomyelitis , cellulitis, Charcot foot deformity, large calcaneal ulcer, POD#2. Added lidocaine patches yesterday. Pain under better control this am. Asks us to come back for dressing change as she just got breakfast. Will try to return later today. 03/15/17 10:32 Objective: Vital Signs Temp Pulse Resp BP Pulse Ox 36.9 C 93 16 127/74 H 94 03/15/17 09:42 03/15/17 09:42 03/15/17 09:42 03/15/17 09:42 03/15/17 09:42 Laboratory Results 03/14/17 05:50 03/14/17 05:50 03/14/17 03/15/17 03/16/17 05:59 05:59 05:59 Intake Total 1200 954 Output Total 750 2440 Balance 450 -1486 PT 14.1 SEC (12.0-15.0) 03/04/17 08:50 INR 1.10 (0.83-1.16) 03/04/17 08:50 ICD10 Worksheet Patient Problems: Problems Problem Status Onset Cellulitis of foot, right Acute Methicillin resistant Staphylococcus aureus infection Acute ~03/04/17 Osteomyelitis of right foot Acute Severe sepsis Acute Abscess of left leg Acute Altered mental status Acute Anemia Acute Cellulitis in diabetic foot Acute Cellulitis of lower extremity Acute Failure to thrive Acute Fever Acute Lower limb ulcer, heel or midfoot Acute MRSA (methicillin resistant Staphylococcus aureus) Acute 10/10/14 Osteomyelitis of ankle or foot, right, acute Acute Sepsis Acute Uremia Acute
[2017-03-15] MEDS: HYDROmorphONE/DILAUDID 6 MG/30 ML PCA IV PRN ×2 (10:34→20:49)
--- NOTE | 2017-03-15 13:26 | PCMIDPN ---
Assessment/Plan: #Sepsis secondary RLE cellulitis/ calcaneal OM with associated GAS bacteremia. s/p R-BKA. Wound also showed MRSA. Reviewed picture of R BKA today and some pink discoloration of skin surrounding incision - unclear if reflects infection --contact isolation --stop date of daptomycin 03/16 --monitor exam of BKA # Renal insufficiency: Cr 1.4 Med, Abx #13 daptomycin #7 microbiology 03/04 blood cx 2/2 GAS 03/05 wound culture: Group a strep, MRSA and Proteus 03/06 blood culture 2 sets: Neg 03/04 CSF culture negative IgG appropriately high Subjective: patient in good spirits today pain controlled Objective: Vital Signs Temp Pulse Resp BP Pulse Ox 36.7 C 89 14 142/77 H 97 03/15/17 12:00 03/15/17 12:00 03/15/17 12:00 03/15/17 12:00 03/15/17 12:00 Laboratory Results 03/14/17 05:50 03/14/17 05:50 03/14/17 03/15/17 03/16/17 05:59 05:59 05:59 Intake Total 1200 954 Output Total 750 2440 Balance 450 -1486 - Physical Exam General Appearance: no apparent distress, obese EENT: pale conjunctiva, No scleral icterus Respiratory: lungs clear, No accessory muscle use Cardiac/Chest: regular rate, rhythm Extremities: other (R BKA picture reviewed incision without drainage, pink discoration at base of stump and anterior side of incision) Abdomen: normal bowel sounds, non-tender, soft Skin: No rash Neuro/Psych: alert, normal mood/affect, oriented x 3 ICD10 Worksheet Patient Problems: Problems Problem Status Onset Cellulitis of foot, right Acute Methicillin resistant Staphylococcus aureus infection Acute ~03/04/17 Osteomyelitis of right foot Acute Severe sepsis Acute Abscess of left leg Acute Altered mental status Acute Anemia Acute Cellulitis in diabetic foot Acute Cellulitis of lower extremity Acute Failure to thrive Acute Fever Acute Lower limb ulcer, heel or midfoot Acute MRSA (methicillin resistant Staphylococcus aureus) Acute 10/10/14 Osteomyelitis of ankle or foot, right, acute Acute Sepsis Acute Uremia Acute
--- NOTE | 2017-03-15 17:43 | HOSPPROG ---
Hospitalist Progress Note Assessment/Plan: DIAGNOSES: Severe sepsis with multisystem organ failure, resolved, due to R foot cellulitis , myositis - MRSA, proteus, Group A strep R heel pressure ulcer/Charcot foot deformity, St 3, present on admission Resp arrest on admission, resolved ADILSON on CKD, resolved Metabolic encephalopathy, resolved DM type 2, poorly controlled and with Hypoglycemic episodes Anemia, s/p 2u PRBC Morbid Obesity COPD, on 4L O2 baseline Chronic pain w/ opiate dependence PLANS: -continue IV abx as she had strep bacteremia but will review duration with ID and surg -will decrease her evening Lantus dose tonight follow sugars closely SUBJECTIVE: Pain better controlled today otherwise feels well OBJECTIVE Vitals reviewed: stable without fever Exam: alert oriented skin warm dry color ok resps not labored lungs clear BSs heart regular abd soft nondistended nontender, bowel sounds present limbs her BKA leg has dressing in place which is dry with no evidence of bleeding through the dressing, the leg otherwise appears in good condition iv site ok Laboratory data: Sugars remain in good range overall but did have hypoglycemia this morning Objective: Vital Signs Temp Pulse Resp BP Pulse Ox 36.6 C 96 14 133/97 H 90 L 03/15/17 16:00 03/15/17 16:00 03/15/17 16:00 03/15/17 16:00 03/15/17 16:00 Laboratory Results 03/14/17 05:50 03/14/17 05:50 03/14/17 03/15/17 03/16/17 06:59 06:59 06:59 Intake Total 1200 954 Output Total 750 2440 10 Balance 450 -1486 -10 PT 14.1 SEC (12.0-15.0) 03/04/17 08:50 INR 1.10 (0.83-1.16) 03/04/17 08:50 ICD10 Worksheet Patient Problems: Problems Problem Status Onset Cellulitis of foot, right Acute Methicillin resistant Staphylococcus aureus infection Acute ~03/04/17 Osteomyelitis of right foot Acute Severe sepsis Acute Abscess of left leg Acute Altered mental status Acute Anemia Acute Cellulitis in diabetic foot Acute Cellulitis of lower extremity Acute Failure to thrive Acute Fever Acute Lower limb ulcer, heel or midfoot Acute MRSA (methicillin resistant Staphylococcus aureus) Acute 10/10/14 Osteomyelitis of ankle or foot, right, acute Acute Sepsis Acute Uremia Acute
[2017-03-15] MEDS: traZODone 50 MG TAB PO SCH (22:03)
[2017-03-15] MEDS: PATCH REMOVAL 1 EA PATCH TD SCH (22:07)
[2017-03-16] MEDS: HYDROmorphONE/DILAUDID 4 MG TAB PO PRN ×4 (02:00→21:56)
[2017-03-16] MEDS: DICLOFENAC SODIUM 1% 100 GM GEL TP SCH ×4 (04:10→21:57)
[2017-03-16] MEDS: ENOXAPARIN 40 MG/0.4 ML SYR SC SCH ×2 (08:00→21:57)
[2017-03-16] MEDS: INSULIN REGULAR HUMAN 100 UNIT/ML SC SCH ×4 (08:00→18:27)
[2017-03-16] MEDS: LIDOCAINE 5% 1 EA PATCH TD SCH (08:00)
[2017-03-16] MEDS: GABAPENTIN 400 MG CAP PO SCH ×2 (08:01→21:56)
[2017-03-16] MEDS: PANTOPRAZOLE SODIUM 40 MG TAB PO SCH (08:01)
[2017-03-16] MEDS: PREGABALIN 50 MG CAP PO SCH ×3 (08:01→21:56)
[2017-03-16] MEDS: GABAPENTIN 300 MG CAP PO SCH ×2 (08:01→21:56)
[2017-03-16] MEDS: DULoxetine 30 MG CAP PO SCH ×2 (08:02→21:56)
[2017-03-16] MEDS: CITALOPRAM 20 MG TAB PO SCH (08:02)
[2017-03-16] MEDS: LEVOTHYROXINE 200 MCG TAB PO SCH (08:02)
[2017-03-16] MEDS: INSULIN GLARGINE 100 UNITS/ML SYRINGE SC SCH ×2 (08:06→22:02)
[2017-03-16] MEDS: DAPTOmycin 800 MG in NS 100 ML IV SCH (08:43)
[2017-03-16] MEDS: HYDROmorphONE/DILAUDID 4 MG TAB PO SCH (09:01)
--- NOTE | 2017-03-16 10:27 | PCMIDPN ---
Assessment/Plan: Assessment: Group a strep sepsis and bacteremia secondary to right lower extremity chronic ulcer as the nidus of infection. Patient is status post right-sided BKA. Her residual limb on the right side has an erythematous hue to it. She does not have any symptoms of infection however. The redness is decreased from the drawn line. Plan: 1. Continue IV daptomycin. Will stop after today's dose. 2. Follow appearance of right leg stump. Subjective: Patient is sitting up on the side of her bed. She is working with Physical therapy. She feels pretty good. Denies any fevers or chills. Still has pain at her amputation site. Objective: Daptomycin # 7 Vital Signs Temp Pulse Resp BP Pulse Ox 36.8 C 86 13 167/65 H 92 03/16/17 07:38 03/16/17 07:38 03/16/17 07:38 03/16/17 07:38 03/16/17 07:38 Laboratory Results 03/14/17 05:50 03/14/17 05:50 03/15/17 03/16/17 03/17/17 05:59 05:59 05:59 Intake Total 954 Output Total 3770 1095 Balance -1486 -1095 - Physical Exam General Appearance: WD/WN, alert, no apparent distress, obese, non-toxic Respiratory: lungs clear, normal breath sounds, No respiratory distress Cardiac/Chest: regular rate, rhythm, No tachycardia Extremities: No non-tender, No normal inspection (Right lower extremity status post BKA. Residual stump area with mild erythema.) Skin: normal color, warm/dry, No rash Neuro/Psych: alert, normal mood/affect, oriented x 3 ICD10 Worksheet Patient Problems: Problems Problem Status Onset Cellulitis of foot, right Acute Methicillin resistant Staphylococcus aureus infection Acute ~03/04/17 Osteomyelitis of right foot Acute Severe sepsis Acute Abscess of left leg Acute Altered mental status Acute Anemia Acute Cellulitis in diabetic foot Acute Cellulitis of lower extremity Acute Failure to thrive Acute Fever Acute Lower limb ulcer, heel or midfoot Acute MRSA (methicillin resistant Staphylococcus aureus) Acute 10/10/14 Osteomyelitis of ankle or foot, right, acute Acute Sepsis Acute Uremia Acute
[2017-03-16] MEDS: ACETAMINOPHEN 325 MG TAB PO PRN (11:32)
[2017-03-16] MEDS: clonazePAM 0.5 MG TAB PO PRN (11:32)
[2017-03-16] MEDS: SENNOSIDES/DOCUSATE SODIUM TAB PO PRN (11:33)
--- NOTE | 2017-03-16 15:05 | SOAPPROG ---
SOAP Progress Note Assessment/Plan: Assessment: 56 yo F with charcot's deformity of bilateral feet, right foot ulceration, and osteomyelitis requiring BKA POD #3. Garth Hx of chronic opioid use. Cont diet Cont pain control Will discuss prothesis with Dr. Telles Dressing change tomorrow Appreciate ID Appreciate hospitalist managing comorbidities S: Pt says pain is better controlled today. Tolerating diet. Denies F/C, N/V/D/ C O: Afebrile Pt sitting up in chair, NAD No increased WOB RLE stump dressing dry and intact without shadowing. Objective: Vital Signs Temp Pulse Resp BP Pulse Ox 36.8 C 89 20 167/65 H 94 03/16/17 11:18 03/16/17 11:18 03/16/17 11:18 03/16/17 11:18 03/16/17 11:18 Laboratory Results 03/14/17 05:50 03/14/17 05:50 03/15/17 03/16/17 03/17/17 05:59 05:59 05:59 Intake Total 954 Output Total 2440 1095 Balance -1486 -1095 PT 14.1 SEC (12.0-15.0) 03/04/17 08:50 INR 1.10 (0.83-1.16) 03/04/17 08:50 ICD10 Worksheet Patient Problems: Problems Problem Status Onset Cellulitis of foot, right Acute Methicillin resistant Staphylococcus aureus infection Acute ~03/04/17 Osteomyelitis of right foot Acute Severe sepsis Acute Abscess of left leg Acute Altered mental status Acute Anemia Acute Cellulitis in diabetic foot Acute Cellulitis of lower extremity Acute Failure to thrive Acute Fever Acute Lower limb ulcer, heel or midfoot Acute MRSA (methicillin resistant Staphylococcus aureus) Acute 10/10/14 Osteomyelitis of ankle or foot, right, acute Acute Sepsis Acute Uremia Acute
[2017-03-16] MEDS: fentaNYL 75 MCG PATCH TD SCH (16:48)
[2017-03-16] MEDS: traZODone 50 MG TAB PO SCH (21:56)
[2017-03-16] MEDS: PATCH REMOVAL 1 EA PATCH TD SCH (23:59)
[2017-03-17] MEDS: PATCH REMOVAL 1 EA PATCH TD SCH ×2 (01:30→21:00)
[2017-03-17] MEDS: HYDROmorphONE/DILAUDID 4 MG TAB PO PRN ×3 (01:48→20:16)
[2017-03-17] MEDS: DICLOFENAC SODIUM 1% 100 GM GEL TP SCH ×4 (02:11→22:11)
[2017-03-17] MEDS: HYDROmorphONE/DILAUDID 4 MG TAB PO SCH (09:27)
[2017-03-17] MEDS: PREGABALIN 50 MG CAP PO SCH ×3 (09:30→20:16)
[2017-03-17] MEDS: DULoxetine 30 MG CAP PO SCH ×2 (09:37→20:16)
[2017-03-17] MEDS: GABAPENTIN 400 MG CAP PO SCH ×2 (09:37→20:16)
[2017-03-17] MEDS: GABAPENTIN 300 MG CAP PO SCH ×2 (09:37→20:16)
[2017-03-17] MEDS: CITALOPRAM 20 MG TAB PO SCH (09:37)
[2017-03-17] MEDS: PANTOPRAZOLE SODIUM 40 MG TAB PO SCH (09:38)
[2017-03-17] MEDS: LEVOTHYROXINE 200 MCG TAB PO SCH (09:38)
[2017-03-17] MEDS: INSULIN GLARGINE 100 UNITS/ML SYRINGE SC SCH ×2 (09:39→22:16)
[2017-03-17] MEDS: ENOXAPARIN 40 MG/0.4 ML SYR SC SCH ×2 (09:40→22:11)
[2017-03-17] MEDS: LIDOCAINE 5% 1 EA PATCH TD SCH (09:42)
[2017-03-17] MEDS: INSULIN REGULAR HUMAN 100 UNIT/ML SC SCH ×3 (09:57→18:36)
[2017-03-17 10:10] LABS: % IMMATURE GRANULYOCYTES 1.1 % (0.0-1.1); ABSOLUTE IMMATURE GRANULOCYTES 0.06 10^3/uL (0.00-0.10); ADD DIFF? NO; ADD MORPH? NO; ADD SCAN? NO; ATYPICAL LYMPHOCYTE FLAG 20 (0-99); FRAGMENT RBC FLAG 0 (0-99); HEMATOCRIT 23.9 % (38.0-47.0); HEMOGLOBIN 7.4 g/dL (12.6-16.3); LEFT SHIFT FLG 0 (0-99); LIPEMIA HEMOLYSIS FLAG 80 (0-99); MEAN CELL HEMOGLOBIN 26.3 pg (27.9-34.1); MEAN CELL VOLUME 85.1 fL (81.5-99.8); PLATELET CLUMPS FLAG 10 (0-99); PLATELET COUNT 265 10^3/uL (150-400); RED BLOOD CELL COUNT 2.81 10^6/uL (4.18-5.33); RED CELL DISTRIBUTION WIDTH 14.6 % (11.5-15.2)
--- NOTE | 2017-03-17 10:12 | ASMTCMCOM ---
CM Note CM Note Notes: Tea called Elidia at [facility] to check in. Elidia has already set up rehab staff for Pt. at [facility] upon discharge. Can receive Pt. over weekend if she is medically ready. Call Elidia. Date Signed: 03/17/2017 10:11 AM Electronically Signed By:Darlene Whiting LCSW
[2017-03-17 10:31] LABS: ALANINE AMINOTRANSFERASE 18 IU/L (9-52); ALBUMIN 3.1 g/dL (3.5-5.0); ALKALINE PHOSPHATASE 110 IU/L (38-126); ANION GAP 8 mEq/L (8-16); ASPARTATE AMINOTRANSFERASE 11 IU/L (14-46); BILIRUBIN,TOTAL 0.3 mg/dL (0.1-1.4); CALCIUM 8.9 mg/dL (8.5-10.4); CARBON DIOXIDE 31 mEq/l (22-31); CHLORIDE 99 mEq/L (97-110); CREATININE 1.3 mg/dL (0.6-1.0); GLOMERULAR FILTRATION RATE 43; GLUCOSE 264 mg/dL (70-100); POTASSIUM 5.5 mEq/L (3.5-5.2); SODIUM 138 mEq/L (134-144); TOTAL PROTEIN 6.9 g/dL (6.3-8.2)
--- NOTE | 2017-03-17 11:23 | PCMIDPN ---
Assessment/Plan: Assessment: Group a strep sepsis and bacteremia secondary to right lower extremity chronic ulcer as the nidus of infection. Patient is status post right-sided BKA. Her residual limb on the right side has improved over the past 24 hours. She continues not to have any symptoms of infection. Plan: 1. Continue IV daptomycin. Will stop after today's dose. 2. Follow appearance of right leg stump. 03/17/17 11:20 Subjective: Patient doing very well. No fevers. Denies new problems. Still with pain in the stump. Objective: no antibiotics Vital Signs Temp Pulse Resp BP Pulse Ox 36.4 C 83 20 165/96 H 97 03/17/17 08:00 03/17/17 08:00 03/17/17 08:00 03/17/17 08:00 03/17/17 08:00 Laboratory Results 03/17/17 10:00 03/17/17 10:00 03/16/17 03/17/17 03/18/17 05:59 05:59 05:59 Intake Total 1375 Output Total 1090 3592 550 Balance -1095 -2285 -550 - Physical Exam General Appearance: WD/WN, alert, no apparent distress, obese Respiratory: lungs clear, normal breath sounds, No respiratory distress Cardiac/Chest: regular rate, rhythm, No tachycardia Extremities: non-tender, erythema (improved), No normal inspection Skin: normal color, warm/dry, No rash Neuro/Psych: alert, normal mood/affect, oriented x 3 ICD10 Worksheet Patient Problems: Problems Problem Status Onset Cellulitis of foot, right Acute Methicillin resistant Staphylococcus aureus infection Acute ~03/04/17 Osteomyelitis of right foot Acute Severe sepsis Acute Abscess of left leg Acute Altered mental status Acute Anemia Acute Cellulitis in diabetic foot Acute Cellulitis of lower extremity Acute Failure to thrive Acute Fever Acute Lower limb ulcer, heel or midfoot Acute MRSA (methicillin resistant Staphylococcus aureus) Acute 10/10/14 Osteomyelitis of ankle or foot, right, acute Acute Sepsis Acute Uremia Acute
[2017-03-17] MEDS: POLYETHYLENE GLYCOL 3350 17 GM PKT PO PRN (11:30)
[2017-03-17] MEDS: SENNOSIDES/DOCUSATE SODIUM TAB PO PRN (11:31)
[2017-03-17] MEDS: ACETAMINOPHEN 325 MG TAB PO PRN (11:31)
--- NOTE | 2017-03-17 11:39 | SOAPPROG ---
SOAP Progress Note Assessment/Plan: Assessment: 56 yo F with charcot's deformity of bilateral feet, right foot ulceration, and osteomyelitis requiring BKA POD #4. Also Hx of chronic opioid use. Cont diet Cont pain control. Pain control seems to be an issue with her however, she is currently taking 10mg dilauded daily plus 8mg q4hrs PRN. Will increase the Fentanyl patch to 100mcg. Will discussed prothesis with Dr. Telles. She still has some healing to do before a candidate Dressing change today DAQUAN drain removed today Appreciate ID Appreciate hospitalist managing comorbidities S: Pt complaining of pain after DAQUAN drain was removed. Tearful. Tolerating diet. Denies F/C, N/V/D/C O: Afebrile Pt sitting up in bed No increased WOB RLE stump incision C/d/I. DAQUAN drain with minimal serosang output Objective: Vital Signs Temp Pulse Resp BP Pulse Ox 36.4 C 83 20 165/96 H 97 03/17/17 08:00 03/17/17 08:00 03/17/17 08:00 03/17/17 08:00 03/17/17 08:00 Laboratory Results 03/17/17 10:00 03/17/17 10:00 03/16/17 03/17/17 03/18/17 05:59 05:59 05:59 Intake Total 1375 Output Total 1095 3660 550 Balance -1095 -2285 -550 PT 14.1 SEC (12.0-15.0) 03/04/17 08:50 INR 1.10 (0.83-1.16) 03/04/17 08:50 ICD10 Worksheet Patient Problems: Problems Problem Status Onset Cellulitis of foot, right Acute Methicillin resistant Staphylococcus aureus infection Acute ~03/04/17 Osteomyelitis of right foot Acute Severe sepsis Acute Abscess of left leg Acute Altered mental status Acute Anemia Acute Cellulitis in diabetic foot Acute Cellulitis of lower extremity Acute Failure to thrive Acute Fever Acute Lower limb ulcer, heel or midfoot Acute MRSA (methicillin resistant Staphylococcus aureus) Acute 10/10/14 Osteomyelitis of ankle or foot, right, acute Acute Sepsis Acute Uremia Acute
[2017-03-17] MEDS: fentaNYL 100 MCG PATCH TD SCH (13:03)
--- NOTE | 2017-03-17 16:45 | HOSPPROG ---
Hospitalist Progress Note Assessment/Plan: DIAGNOSES: Severe sepsis with multisystem organ failure, resolved, due to R foot cellulitis , myositis - MRSA, proteus, Group A strep R heel pressure ulcer/Charcot foot deformity, St 3, present on admission Resp arrest on admission, resolved ADILSON on CKD, resolved Metabolic encephalopathy, resolved DM type 2, poorly controlled and with Hypoglycemic episodes Anemia, s/p 2u PRBC Morbid Obesity COPD, on 4L O2 baseline Chronic pain w/ opiate dependence PLANS: -continue IV abx as she had strep bacteremia but will review duration with ID and surg -will increase her evening Lantus dose tonight follow sugars closely SUBJECTIVE: Today more frustrated and stating her pain is not as well controlled; she says that she is not getting as much pain medicine here as she usually gets her fdc, when infectious actually getting a little bit more than she usually gets there. Eating well OBJECTIVE Vitals reviewed: stable without fever Exam: alert oriented skin warm dry color ok resps not labored lungs clear BSs heart regular abd soft nondistended nontender, bowel sounds present limbs her BKA leg has dressing in place which looks good, the leg otherwise appears in good condition iv site ok Laboratory data: Sugars higher today after some decrease in her insulin doses because of previous hypoglycemia Objective: Vital Signs Temp Pulse Resp BP Pulse Ox 37.0 C 91 20 172/88 H 91 L 03/17/17 15:42 03/17/17 15:42 03/17/17 15:42 03/17/17 15:42 03/17/17 15:42 Laboratory Results 03/17/17 10:00 03/17/17 10:00 03/16/17 03/17/17 03/18/17 06:59 06:59 06:59 Intake Total 1375 Output Total 1095 7060 550 Balance -1095 -2285 -550 PT 14.1 SEC (12.0-15.0) 03/04/17 08:50 INR 1.10 (0.83-1.16) 03/04/17 08:50 ICD10 Worksheet Patient Problems: Problems Problem Status Onset Cellulitis of foot, right Acute Methicillin resistant Staphylococcus aureus infection Acute ~03/04/17 Osteomyelitis of right foot Acute Severe sepsis Acute Abscess of left leg Acute Altered mental status Acute Anemia Acute Cellulitis in diabetic foot Acute Cellulitis of lower extremity Acute Failure to thrive Acute Fever Acute Lower limb ulcer, heel or midfoot Acute MRSA (methicillin resistant Staphylococcus aureus) Acute 10/10/14 Osteomyelitis of ankle or foot, right, acute Acute Sepsis Acute Uremia Acute
[2017-03-17] MEDS: traZODone 50 MG TAB PO SCH (20:16)
[2017-03-17] MEDS: clonazePAM 0.5 MG TAB PO PRN (20:25)
[2017-03-18] MEDS: HYDROmorphONE/DILAUDID 4 MG TAB PO PRN ×3 (05:14→17:25)
[2017-03-18] MEDS: DICLOFENAC SODIUM 1% 100 GM GEL TP SCH ×4 (06:41→21:20)
[2017-03-18] MEDS: ENOXAPARIN 40 MG/0.4 ML SYR SC SCH ×2 (08:32→21:20)
[2017-03-18] MEDS: HYDROmorphONE/DILAUDID 4 MG TAB PO SCH (08:33)
[2017-03-18] MEDS: PANTOPRAZOLE SODIUM 40 MG TAB PO SCH (08:35)
[2017-03-18] MEDS: DULoxetine 30 MG CAP PO SCH ×2 (08:35→20:50)
[2017-03-18] MEDS: PREGABALIN 50 MG CAP PO SCH ×3 (08:35→20:50)
[2017-03-18] MEDS: CITALOPRAM 20 MG TAB PO SCH (08:35)
[2017-03-18] MEDS: GABAPENTIN 300 MG CAP PO SCH ×2 (08:35→20:50)
[2017-03-18] MEDS: LEVOTHYROXINE 200 MCG TAB PO SCH (08:35)
[2017-03-18] MEDS: GABAPENTIN 400 MG CAP PO SCH ×2 (08:35→20:50)
[2017-03-18] MEDS: INSULIN GLARGINE 100 UNITS/ML SYRINGE SC SCH ×2 (08:36→20:49)
[2017-03-18] MEDS: LIDOCAINE 5% 1 EA PATCH TD SCH (08:36)
[2017-03-18] MEDS: SENNOSIDES/DOCUSATE SODIUM TAB PO PRN ×2 (09:10→16:21)
[2017-03-18] MEDS: POLYETHYLENE GLYCOL 3350 17 GM PKT PO PRN ×2 (09:10→16:21)
[2017-03-18] MEDS: INSULIN REGULAR HUMAN 100 UNIT/ML SC SCH ×3 (09:10→17:26)
--- NOTE | 2017-03-18 09:13 | PCMIDPN ---
Assessment/Plan: 1. Group a strep sepsis secondary to right lower extremity cellulitis/myositis/ calcaneal osteomyelitis status post right BKA: Status post 14 days of daptomycin for bacteremia. Will attempt to look at the wound either tomorrow or Monday. Per surgery in the patient's nurse, stump site is looking better. Continue wound care. No new recommendations. Subjective: Patient is irritable. Has not had a bowel movement in over a week. Convinced that twice daily MiraLax will do the job. Nurse reports that she just finished wrapping the stump. She states that General surgery saw the wound and was happy with the way it looked. No drainage. Objective: Status post 14 days of daptomycin Afebrile Vital Signs Temp Pulse Resp BP Pulse Ox 36.8 C 83 18 154/63 H 97 03/17/17 22:39 03/17/17 22:39 03/17/17 22:39 03/17/17 22:39 03/17/17 22:39 Laboratory Results 03/17/17 10:00 03/17/17 10:00 03/17/17 03/18/17 03/19/17 05:59 05:59 05:59 Intake Total 1375 2270 Output Total 3660 3200 Balance -2285 -930 - Physical Exam General Appearance: no apparent distress, obese Extremities: other (Right stump wrapped. I did not take down since this was just literally wrapped.) ICD10 Worksheet Patient Problems: Problems Problem Status Onset Cellulitis of foot, right Acute Methicillin resistant Staphylococcus aureus infection Acute ~03/04/17 Osteomyelitis of right foot Acute Severe sepsis Acute Abscess of left leg Acute Altered mental status Acute Anemia Acute Cellulitis in diabetic foot Acute Cellulitis of lower extremity Acute Failure to thrive Acute Fever Acute Lower limb ulcer, heel or midfoot Acute MRSA (methicillin resistant Staphylococcus aureus) Acute 10/10/14 Osteomyelitis of ankle or foot, right, acute Acute Sepsis Acute Uremia Acute
--- NOTE | 2017-03-18 09:41 | SOAPPROG ---
SOAP Progress Note Assessment/Plan: Assessment/Plan: 56yo F s/p R BKA - pain an issue, showered yesterday. - once pain controlled, will need stump protector, eventual prosthesis 03/18/17 09:40 Subjective: Pain Objective: Vital Signs Temp Pulse Resp BP Pulse Ox 36.8 C 79 18 150/82 H 97 03/18/17 08:00 03/18/17 08:00 03/18/17 08:00 03/18/17 08:00 03/18/17 08:00 Laboratory Results 03/17/17 10:00 03/17/17 10:00 03/17/17 03/18/17 03/19/17 05:59 05:59 05:59 Intake Total 1375 2270 Output Total 3660 3200 Balance -2285 -930 PT 14.1 SEC (12.0-15.0) 03/04/17 08:50 INR 1.10 (0.83-1.16) 03/04/17 08:50 ICD10 Worksheet Patient Problems: Problems Problem Status Onset Cellulitis of foot, right Acute Methicillin resistant Staphylococcus aureus infection Acute ~03/04/17 Osteomyelitis of right foot Acute Severe sepsis Acute Abscess of left leg Acute Altered mental status Acute Anemia Acute Cellulitis in diabetic foot Acute Cellulitis of lower extremity Acute Failure to thrive Acute Fever Acute Lower limb ulcer, heel or midfoot Acute MRSA (methicillin resistant Staphylococcus aureus) Acute 10/10/14 Osteomyelitis of ankle or foot, right, acute Acute Sepsis Acute Uremia Acute
[2017-03-18] MEDS: clonazePAM 0.5 MG TAB PO PRN (16:30)
--- NOTE | 2017-03-18 20:13 | HOSPPROG ---
Hospitalist Progress Note Assessment/Plan: DIAGNOSES: -Severe sepsis with multisystem organ failure, resolved, due to R foot cellulitis, myositis - MRSA, proteus, Group A strep -R heel pressure ulcer/Charcot foot deformity, St 3, present on admission, NOW S /P BKA -Resp arrest on admission, resolved -DM2, poorly controlled with both high and low sugars: she has had very poor dietary compliance here despite being told she is at higher risk of wound infection or slower healing from this -ADILSON on CKD, resolved -Metabolic encephalopathy, resolved -Anemia, s/p 2u PRBC -Morbid Obesity -COPD, on 4L O2 baseline -Chronic pain w/ opiate dependence PLANS: -continue IV abx as she had strep bacteremia but will review duration with ID and surg -due to several episodes of very low sugars during this stay will not increase her insulin dose now but I did again warn her that her dietary noncompliance is making sugar control very difficult and placing her at risk of wound infection at her stump but at risk of dangerous low sugars when we try to increase her insuling doses - today she did acknowledge this and states now that she will try her best to comply; over the previous few days she has told me that she would not comply with diet recommendations -will add melatonin for sleep at her request SUBJECTIVE: today main complaint is R ear is plugged no pain but harder to hear OBJECTIVE Vitals reviewed: stable without fever Exam: alert oriented Her R ear is completely occluded w wax, L ok skin warm dry color ok resps not labored lungs clear BSs heart regular abd soft nondistended nontender, bowel sounds present limbs her BKA leg has dressing in place which looks good, the leg otherwise appears in good condition iv site ok Laboratory data: Sugars higher today after some decrease in her insulin doses because of previous hypoglycemia Objective: Vital Signs Temp Pulse Resp BP Pulse Ox 36.6 C 81 20 141/76 H 98 03/18/17 16:00 03/18/17 16:00 03/18/17 16:00 03/18/17 16:00 03/18/17 16:00 Laboratory Results 03/17/17 10:00 03/17/17 10:00 03/17/17 03/18/17 03/19/17 06:59 06:59 06:59 Intake Total 1375 2270 Output Total 3660 3200 1000 Balance -2285 -930 -1000 PT 14.1 SEC (12.0-15.0) 03/04/17 08:50 INR 1.10 (0.83-1.16) 03/04/17 08:50 ICD10 Worksheet Patient Problems: Problems Problem Status Onset Cellulitis of foot, right Acute Methicillin resistant Staphylococcus aureus infection Acute ~03/04/17 Osteomyelitis of right foot Acute Severe sepsis Acute Abscess of left leg Acute Altered mental status Acute Anemia Acute Cellulitis in diabetic foot Acute Cellulitis of lower extremity Acute Failure to thrive Acute Fever Acute Lower limb ulcer, heel or midfoot Acute MRSA (methicillin resistant Staphylococcus aureus) Acute 10/10/14 Osteomyelitis of ankle or foot, right, acute Acute Sepsis Acute Uremia Acute
[2017-03-18] MEDS: traZODone 50 MG TAB PO SCH (20:50)
[2017-03-18] MEDS: MELATONIN 3 MG TAB PO SCH (20:50)
[2017-03-18] MEDS: PATCH REMOVAL 1 EA PATCH TD SCH (21:01)
[2017-03-19] MEDS: DICLOFENAC SODIUM 1% 100 GM GEL TP SCH ×4 (06:36→21:26)
[2017-03-19] MEDS ORDERED: BISACODYL 10 MG SUPP PR PRN (08:51)
--- NOTE | 2017-03-19 08:59 | HOSPPROG ---
Hospitalist Progress Note Assessment/Plan: 56-y/o F PMH DM, COPD with chronic hypoxic respiratory failure, htn, DM with poor control, morbid obesity, p/w encephalopathy/ sepsis #. Severe sepsis with multisystem organ failure, resolved, due to R foot cellulitis, myositis - MRSA, proteus, Group A strep R heel pressure ulcer/Charcot foot deformity, St 3, present on admission, Now S/P R BKA #. Resp arrest on admission, resolved #. DM2, poorly controlled with both high and low sugars: was having very poor dietary compliance here despite being told she is at higher risk of wound infection or slower healing from this on Lantus and SSI appears controlled today #. ADILSON on CKD, resolved recheck BMP today/ pt refused draw after sample showed hemolysis #. Metabolic encephalopathy, resolved #. Anemia, s/p 2u PRBC Hb 6.9 today/ agrees to transfusion #. Morbid Obesity BMI 44 #. COPD, on 4L O2 baseline #. Chronic pain w/ opiate dependence #. constipation: will only accept BID Miralax PLANS: -continue IV abx as she had strep bacteremia / ID will review duration -transfuse 1 U PRBC today Subjective: Reports feeling weak. Feels too weak to try Kasie chair today. Objective: Vital Signs Temp Pulse Resp BP Pulse Ox 98.9 F 93 18 151/77 H 92 03/19/17 00:00 03/19/17 00:00 03/19/17 00:00 03/19/17 00:00 03/19/17 00:00 Laboratory Results 03/17/17 10:00 03/17/17 10:00 03/18/17 03/19/17 03/20/17 05:59 05:59 05:59 Intake Total 2270 625 Output Total 3200 1025 Balance -930 -1950 PT 14.1 SEC (12.0-15.0) 03/04/17 08:50 INR 1.10 (0.83-1.16) 03/04/17 08:50 - Physical Exam Constitutional: chronically ill appearing, obese Ears, Nose, Mouth, Throat: moist mucous membranes Cardiovascular: regular rate and rhythym, no murmur, rub, or gallop Respiratory: no respiratory distress Gastrointestinal: normoactive bowel sounds Skin: other (stump evaluated/ no erythema or wound dehiscence) Neurologic: AAOx3 Psychiatric: anxious ICD10 Worksheet Patient Problems: Problems Problem Status Onset Cellulitis of foot, right Acute Methicillin resistant Staphylococcus aureus infection Acute ~03/04/17 Osteomyelitis of right foot Acute Severe sepsis Acute Abscess of left leg Acute Altered mental status Acute Anemia Acute Cellulitis in diabetic foot Acute Cellulitis of lower extremity Acute Failure to thrive Acute Fever Acute Lower limb ulcer, heel or midfoot Acute MRSA (methicillin resistant Staphylococcus aureus) Acute 10/10/14 Osteomyelitis of ankle or foot, right, acute Acute Sepsis Acute Uremia Acute
[2017-03-19 10:42] LABS: % IMMATURE GRANULYOCYTES 0.5 % (0.0-1.1); ABSOLUTE IMMATURE GRANULOCYTES 0.04 10^3/uL (0.00-0.10); ADD DIFF? NO; ADD MORPH? YES; ADD SCAN? NO; ATYPICAL LYMPHOCYTE FLAG 0 (0-99); FRAGMENT RBC FLAG 0 (0-99); LEFT SHIFT FLG 0 (0-99); LIPEMIA HEMOLYSIS FLAG 80 (0-99); MEAN CELL HEMOGLOBIN 25.9 pg (27.9-34.1); MEAN CELL VOLUME 86.5 fL (81.5-99.8); PLATELET CLUMPS FLAG 20 (0-99); PLATELET COUNT 243 10^3/uL (150-400); RED BLOOD CELL COUNT 2.66 10^6/uL (4.18-5.33); RED CELL DISTRIBUTION WIDTH 14.9 % (11.5-15.2)
[2017-03-19 10:45] LABS: HEMOGLOBIN 6.9 g/dL (12.6-16.3)
[2017-03-19] MEDS: LIDOCAINE 5% 1 EA PATCH TD SCH (11:00)
[2017-03-19] MEDS: HYDROmorphONE/DILAUDID 4 MG TAB PO PRN (11:11)
[2017-03-19] MEDS: INSULIN REGULAR HUMAN 100 UNIT/ML SC SCH ×3 (11:12→17:37)
[2017-03-19] MEDS: PREGABALIN 50 MG CAP PO SCH ×3 (11:12→21:23)
[2017-03-19] MEDS: PANTOPRAZOLE SODIUM 40 MG TAB PO SCH (11:12)
[2017-03-19] MEDS: CITALOPRAM 20 MG TAB PO SCH (11:12)
[2017-03-19] MEDS: DULoxetine 30 MG CAP PO SCH ×2 (11:12→21:23)
[2017-03-19] MEDS: LEVOTHYROXINE 200 MCG TAB PO SCH (11:13)
[2017-03-19] MEDS: ENOXAPARIN 40 MG/0.4 ML SYR SC SCH ×2 (11:13→21:26)
[2017-03-19] MEDS: GABAPENTIN 300 MG CAP PO SCH ×2 (11:13→21:23)
[2017-03-19] MEDS: INSULIN GLARGINE 100 UNITS/ML SYRINGE SC SCH ×2 (11:13→21:30)
[2017-03-19] MEDS: GABAPENTIN 400 MG CAP PO SCH ×2 (11:13→21:23)
[2017-03-19 12:04] LABS: HYPOCHROMIA 2+; PLATELET ESTIMATE ADEQUATE (ADEQ)
[2017-03-19 12:05] LABS: ROULEAUX PRESENT
[2017-03-19 12:06] LABS: POLYCHROMASIA 2+
[2017-03-19] MEDS: clonazePAM 0.5 MG TAB PO PRN (12:51)
--- NOTE | 2017-03-19 14:40 | ASMTCMCOM ---
CM Note CM Note Notes: Chart reviewed. Patient continues to have acute care needs. Remains on IV antb. Plans in place for her to return to [facility] when medically stable. CM to follow. Date Signed: 03/19/2017 02:39 PM Electronically Signed By:Amber Nova RN
[2017-03-19] MEDS: LOSARTAN POTASSIUM 25 MG TAB PO SCH (15:04)
[2017-03-19] MEDS: MELATONIN 3 MG TAB PO SCH (21:23)
[2017-03-19] MEDS: traZODone 50 MG TAB PO SCH (21:23)
[2017-03-19] MEDS: PATCH REMOVAL 1 EA PATCH TD SCH (21:33)
[2017-03-20 04:38] LABS: % IMMATURE GRANULYOCYTES 1.3 % (0.0-1.1); ABSOLUTE IMMATURE GRANULOCYTES 0.07 10^3/uL (0.00-0.10); ADD DIFF? NO; ADD MORPH? NO; ADD SCAN? NO; ATYPICAL LYMPHOCYTE FLAG 0 (0-99); FRAGMENT RBC FLAG 0 (0-99); HEMATOCRIT 26.7 % (38.0-47.0); HEMOGLOBIN 8.1 g/dL (12.6-16.3); LEFT SHIFT FLG 0 (0-99); LIPEMIA HEMOLYSIS FLAG 80 (0-99); MEAN CELL HEMOGLOBIN 26.9 pg (27.9-34.1); MEAN CELL HEMOGLOBIN CONCENTR. 30.3 g/dL (32.4-36.7); MEAN CELL VOLUME 88.7 fL (81.5-99.8); MEAN PLATELET VOLUME 8.9 fL (8.7-11.7); PLATELET CLUMPS FLAG 0 (0-99); PLATELET COUNT 236 10^3/uL (150-400); RED BLOOD CELL COUNT 3.01 10^6/uL (4.18-5.33); RED CELL DISTRIBUTION WIDTH 15.7 % (11.5-15.2)
[2017-03-20] MEDS: DICLOFENAC SODIUM 1% 100 GM GEL TP SCH ×4 (07:42→21:42)
[2017-03-20] MEDS: LEVOTHYROXINE 200 MCG TAB PO SCH (09:46)
[2017-03-20] MEDS: GABAPENTIN 400 MG CAP PO SCH ×2 (09:46→21:24)
[2017-03-20] MEDS: LOSARTAN POTASSIUM 25 MG TAB PO SCH (09:46)
[2017-03-20] MEDS: PREGABALIN 50 MG CAP PO SCH ×3 (09:46→21:24)
[2017-03-20] MEDS: ENOXAPARIN 40 MG/0.4 ML SYR SC SCH ×2 (09:46→21:43)
[2017-03-20] MEDS: PANTOPRAZOLE SODIUM 40 MG TAB PO SCH (09:46)
[2017-03-20] MEDS: GABAPENTIN 300 MG CAP PO SCH ×2 (09:46→21:23)
[2017-03-20] MEDS: DULoxetine 30 MG CAP PO SCH ×2 (09:46→21:23)
[2017-03-20] MEDS: CITALOPRAM 20 MG TAB PO SCH (09:46)
[2017-03-20] MEDS: LIDOCAINE 5% 1 EA PATCH TD SCH (09:47)
--- NOTE | 2017-03-20 10:40 | PCMIDPN ---
Assessment/Plan: Assessment: Group a strep sepsis and bacteremia secondary to right lower extremity chronic ulcer as the nidus of infection. Patient is status post right-sided BKA. She is completed with her antibiotic course for her bacteremia. Her right lower extremity residual limb area has some redness and duskiness on the flap. The skin above the incision looks normal. She is tender above the incision and without symptoms around the flap. Plan: 1. Follow wound care and appearance of the right residual limb. Decisions forthcoming about transition oral antibiotics and movement back to [facility]. 03/17/17 11:20 03/20/17 10:38 Subjective: Patient is resting in her hospital bed. She complains of inability to stand on her remaining leg. She does weight 300 lb and states this is a barrier to her being able to comply with physical therapy. No fevers or chills. No spreading redness. Objective: No antibiotics Vital Signs Temp Pulse Resp BP Pulse Ox 36.1 C 83 18 170/102 H 96 03/20/17 08:57 03/20/17 08:57 03/20/17 08:57 03/20/17 09:46 03/20/17 08:57 Laboratory Results 03/20/17 04:20 03/19/17 10:30 03/19/17 03/20/17 03/21/17 05:59 05:59 05:59 Intake Total 625 Output Total 2575 1300 Balance -1950 -1300 - Physical Exam General Appearance: WD/WN, alert, no apparent distress, obese, non-toxic Respiratory: lungs clear, normal breath sounds, No respiratory distress Cardiac/Chest: regular rate, rhythm, No tachycardia Extremities: erythema (Mild dusky erythema over the flap on the residual limb right lower extremity), No non-tender, No normal inspection, No swelling Skin: normal color, warm/dry, No rash Neuro/Psych: alert, normal mood/affect, oriented x 3 ICD10 Worksheet Patient Problems: Problems Problem Status Onset Cellulitis of foot, right Acute Methicillin resistant Staphylococcus aureus infection Acute ~03/04/17 Osteomyelitis of right foot Acute Severe sepsis Acute Abscess of left leg Acute Altered mental status Acute Anemia Acute Cellulitis in diabetic foot Acute Cellulitis of lower extremity Acute Failure to thrive Acute Fever Acute Lower limb ulcer, heel or midfoot Acute MRSA (methicillin resistant Staphylococcus aureus) Acute 10/10/14 Osteomyelitis of ankle or foot, right, acute Acute Sepsis Acute Uremia Acute
[2017-03-20] MEDS: HYDROmorphONE/DILAUDID 4 MG TAB PO SCH (10:52)
[2017-03-20] MEDS: INSULIN GLARGINE 100 UNITS/ML SYRINGE SC SCH ×2 (10:53→21:24)
[2017-03-20] MEDS: INSULIN REGULAR HUMAN 100 UNIT/ML SC SCH ×3 (10:53→17:09)
[2017-03-20] MEDS: fentaNYL 100 MCG PATCH TD SCH (12:18)
--- NOTE | 2017-03-20 14:29 | HOSPPROG ---
Hospitalist Progress Note Assessment/Plan: Hospitalist Progress Note Assessment/Plan: 56-y/o F PMH DM, COPD with chronic hypoxic respiratory failure, htn, DM with poor control, morbid obesity, p/w encephalopathy/ sepsis. First encounter, chart reviewed. D/W surgery. #. Severe sepsis with multisystem organ failure, resolved, due to R foot cellulitis, myositis - MRSA, proteus, Group A strep R heel pressure ulcer/Charcot foot deformity, St 3, present on admission, Now S/P R BKA #. Resp arrest on admission, resolved #. DM2, poorly controlled with both high and low sugars: was having very poor dietary compliance here despite being told she is at higher risk of wound infection or slower healing from this on Lantus and SSI appears controlled today #. ADILSON on CKD, resolved check in am related to elevated potassium #. Metabolic encephalopathy, resolved #. Anemia, s/p 2u PRBC responded, stable #. Morbid Obesity BMI 44 #. COPD, on 4L O2 baseline #. Chronic pain w/ opiate dependence #. constipation: BID Miralax suppository and enema today PLANS: -continue IV abx as she had strep bacteremia / ID will review duration -aggressive bowel therapy -dispo per ID recs, ok from surgery standpoint Subjective: Up on bedside commode. C/O constipation. no other pain issues. Objective: Vital Signs Temp Pulse Resp BP Pulse Ox 36.1 C 83 18 170/102 H 96 03/20/17 08:57 03/20/17 08:57 03/20/17 08:57 03/20/17 09:46 03/20/17 08:57 Laboratory Results 03/20/17 04:20 03/19/17 10:30 03/19/17 03/20/17 03/21/17 05:59 05:59 05:59 Intake Total 625 Output Total 2575 1300 750 Balance -1950 -1300 -750 PT 14.1 SEC (12.0-15.0) 03/04/17 08:50 INR 1.10 (0.83-1.16) 03/04/17 08:50 - Physical Exam Constitutional: appears nourished, chronically ill appearing, obese Eyes: PERRL, anicteric sclera, EOMI Ears, Nose, Mouth, Throat: moist mucous membranes, hearing normal, ears appear normal Cardiovascular: regular rate and rhythym, No JVD, No edema Respiratory: no respiratory distress, no rales or rhonchi, reduced air movement Gastrointestinal: distension, No tenderness, No ascites, No guarding Skin: warm, no induration, No normal color Musculoskeletal: pain with ROM, abnormal gait, generalized weakness Neurologic: AAOx3 Psychiatric: interacting appropriately, not anxious, not encephalopathic, thought process linear ICD10 Worksheet Patient Problems: Problems Problem Status Onset Osteomyelitis of right foot Acute Methicillin resistant Staphylococcus aureus infection Acute ~03/04/17 Osteomyelitis of ankle or foot, right, acute Acute Anemia Acute Cellulitis of foot, right Acute Cellulitis in diabetic foot Acute MRSA (methicillin resistant Staphylococcus aureus) Acute 10/10/14 Failure to thrive Acute Lower limb ulcer, heel or midfoot Acute Cellulitis of lower extremity Acute Abscess of left leg Acute Altered mental status Acute Uremia Acute Fever Acute Sepsis Acute Severe sepsis Acute
[2017-03-20] MEDS: HYDROmorphONE/DILAUDID 4 MG TAB PO PRN ×2 (17:04→21:24)
[2017-03-20] MEDS: MELATONIN 3 MG TAB PO SCH (21:24)
[2017-03-20] MEDS: traZODone 50 MG TAB PO SCH (21:24)
[2017-03-20] MEDS: PATCH REMOVAL 1 EA PATCH TD SCH (21:43)
[2017-03-21] MEDS: DICLOFENAC SODIUM 1% 100 GM GEL TP SCH ×4 (04:55→22:14)
--- NOTE | 2017-03-21 05:37 | GOP ---
[f rep st] OPERATIVE REPORT DATE OF OPERATION: 03/13/2017 SURGEON: Adonis Telles MD COLOR MAKER FORMULATOR: TERRY Carter. ANESTHESIOLOGIST: Duyen Fontaine MD. PREOPERATIVE DIAGNOSIS: Osteomyelitis, calcaneal ulcer, and cellulitis of the right leg. POSTOPERATIVE DIAGNOSIS: Osteomyelitis, calcaneal ulcer, and cellulitis of the right leg. PROCEDURE PERFORMED: Right below knee amputation. FINDINGS: The patient was found to have a good viable posterior flap. She had patent arterial vesse ls. DESCRIPTION OF PROCEDURE: The patient was taken to the operating room where she received satisfactor y general endotracheal anesthesia by Dr. Fontaine. She was placed in supine position, prepped and drap ed in the usual sterile fashion. A tourniquet was placed on the upper thigh. The leg was compressed with the Esmarch and the tourniquet was turned up to 300 and inflated. Esmarch was then removed. A fishmouth type incision was made over the proximal tibia with a long posterior flap. Dissection was then extended with electrocautery down to the tibia on both sides to the anterior muscular compartme nts. The tibia was then divided approximately an inch below the skin division. It was beveled off a t 45 degrees anteriorly and smoothed out with a rasp. A posterior flap was developed as well. In th e popliteal space the artery and vein were multiply ligated and divided. The nerve was placed on str etch, infiltrated with 0.5% Marcaine, ligated with a 2-0 Vicryl tie and divided. The soleus muscle w as removed by using the gastroc and the posterior flap, and the specimen was removed. Hemostasis was carefully obtained. The tourniquet was taken down and further hemostasis was obtained with 3-0 Vicr yl suture ligatures. The posterior flap looked quite viable. It was brought up over the tibial stum p and secured in place with interrupted 2-0 Vicryl sutures. A 2nd layer of 2-0 Vicryl sutures for th e subcutaneous tissue was made and skin sami and 3-0 Prolene sutures for the skin. A 15 round gardenia icone DAQUAN drain was brought out through a separate stab incision and placed behind the tibia. It shou ld be noted the fibula was also divided approximately an inch shorter than the tibia. Hemostasis had been thoroughly obtained. There were no complications. Blood loss was less than 25 cc. DAQUAN drain w as secured with a silk suture, and the wound was dressed with a bulky compression dressing. She tole rated the procedure well. She was taken to the recovery room in good condition. TOURNIQUET TIME: Less than 25 minutes. /[id number]/MODL
[2017-03-21 06:27] LABS: HEMATOCRIT 26.5 % (38.0-47.0); MEAN CELL HEMOGLOBIN 26.6 pg (27.9-34.1); MEAN CELL HEMOGLOBIN CONCENTR. 30.2 g/dL (32.4-36.7); RED BLOOD CELL COUNT 3.01 10^6/uL (4.18-5.33)
[2017-03-21 06:58] LABS: ANION GAP 10 mEq/L (8-16); CALCIUM 8.7 mg/dL (8.5-10.4); CARBON DIOXIDE 33 mEq/l (22-31); CHLORIDE 98 mEq/L (97-110); CREATININE 1.2 mg/dL (0.6-1.0); GLOMERULAR FILTRATION RATE 47; GLUCOSE 171 mg/dL (70-100); POTASSIUM 5.1 mEq/L (3.5-5.2); SODIUM 141 mEq/L (134-144)
[2017-03-21] MEDS: HYDROmorphONE/DILAUDID 4 MG TAB PO SCH (08:43)
[2017-03-21] MEDS: PREGABALIN 50 MG CAP PO SCH ×3 (08:46→22:11)
[2017-03-21] MEDS: PANTOPRAZOLE SODIUM 40 MG TAB PO SCH (08:46)
[2017-03-21] MEDS: LOSARTAN POTASSIUM 25 MG TAB PO SCH (08:46)
[2017-03-21] MEDS: DULoxetine 30 MG CAP PO SCH ×2 (08:46→22:11)
[2017-03-21] MEDS: GABAPENTIN 300 MG CAP PO SCH ×2 (08:46→22:11)
[2017-03-21] MEDS: GABAPENTIN 400 MG CAP PO SCH ×2 (08:47→22:11)
[2017-03-21] MEDS: LEVOTHYROXINE 200 MCG TAB PO SCH (08:47)
[2017-03-21] MEDS: INSULIN GLARGINE 100 UNITS/ML SYRINGE SC SCH ×2 (08:50→22:12)
[2017-03-21] MEDS: INSULIN REGULAR HUMAN 100 UNIT/ML SC SCH ×3 (08:51→18:11)
[2017-03-21] MEDS: CITALOPRAM 20 MG TAB PO SCH (08:52)
[2017-03-21] MEDS: LIDOCAINE 5% 1 EA PATCH TD SCH (08:53)
[2017-03-21] MEDS: ENOXAPARIN 40 MG/0.4 ML SYR SC SCH ×2 (08:59→22:14)
[2017-03-21] MEDS: POLYETHYLENE GLYCOL 3350 17 GM PKT PO PRN (10:49)
[2017-03-21] MEDS: SENNOSIDES/DOCUSATE SODIUM TAB PO PRN (10:49)
--- NOTE | 2017-03-21 11:32 | SOAPPROG ---
SOAP Progress Note Assessment/Plan: Assessment/Plan: 56 Y obese F hx chronic opioid use s/p R BKA for osteomyelitis , cellulitis, Charcot foot deformity, large calcaneal ulcer. Dressing changed. Wound is intact. Redness is improved. DAQUAN drain d/c'ed. 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 03/21/17 11:31 Objective: Vital Signs Temp Pulse Resp BP Pulse Ox 36.4 C 76 18 117/81 H 99 03/21/17 08:00 03/21/17 08:00 03/21/17 08:00 03/21/17 08:00 03/21/17 08:00 Laboratory Results 03/21/17 06:20 03/21/17 06:20 03/20/17 03/21/17 03/22/17 05:59 05:59 05:59 Output Total 1300 2800 350 Balance -1300 -2800 -350 PT 14.1 SEC (12.0-15.0) 03/04/17 08:50 INR 1.10 (0.83-1.16) 03/04/17 08:50 ICD10 Worksheet Patient Problems: Problems Problem Status Onset Cellulitis of foot, right Acute Methicillin resistant Staphylococcus aureus infection Acute ~03/04/17 Osteomyelitis of right foot Acute Severe sepsis Acute Abscess of left leg Acute Altered mental status Acute Anemia Acute Cellulitis in diabetic foot Acute Cellulitis of lower extremity Acute Failure to thrive Acute Fever Acute Lower limb ulcer, heel or midfoot Acute MRSA (methicillin resistant Staphylococcus aureus) Acute 10/10/14 Osteomyelitis of ankle or foot, right, acute Acute Sepsis Acute Uremia Acute
--- NOTE | 2017-03-21 11:43 | HOSPPROG ---
Hospitalist Progress Note Assessment/Plan: Patient is a 56-year-old female with a history of diabetes and chronic right lower extremity diabetic ulcer associated with Charcot foot who was brought to [facility] from [facility] with altered mental status and tachycardia. At that time she was found on the floor unresponsive except for moaning to painful stimuli. She was given 2 doses of Narcan with minimal response. She had a head CT that showed no acute focal abnormalities. It was noted that she had severe sepsis with multiorgan failure due to right foot cellulitis. Today is my 1st encounter with the patient. Chart reviewed. * severe sepsis with multiorgan failure which has now resolved, secondary to right foot cellulitis myositis MRSA, Proteus and group a strep * right foot cellulitis status post a BKA she has completed her antibiotic course for bacteremia * respiratory arrest on admission has underlying COPD with chronic hypoxemic respiratory failure *DM2 on Lantus and sliding scale stable today * acute kidney injury on chronic kidney disease * metabolic encephalopathy * anemia transfuse 2 units of blood * COPD chronically on 4 L of oxygen * morbid obesity with a BMI 44 * chronic pain on continuous chronic opiates * constipation resolved *sinus pain Sudafed ordered *Plan: asked CM to see Priscilla/ she doesn't want to return to [facility] due to flying ants Subjective: Priscilla said she is not ready for dc. Says she is feeling not strong enough for dc Objective: Vital Signs Temp Pulse Resp BP Pulse Ox 36.4 C 76 18 117/81 H 99 03/21/17 08:00 03/21/17 08:00 03/21/17 08:00 03/21/17 08:00 03/21/17 08:00 Laboratory Results 03/21/17 06:20 03/21/17 06:20 03/20/17 03/21/17 03/22/17 05:59 05:59 05:59 Output Total 1300 2800 350 Balance -1300 -2800 -350 PT 14.1 SEC (12.0-15.0) 03/04/17 08:50 INR 1.10 (0.83-1.16) 03/04/17 08:50 - Physical Exam Constitutional: chronically ill appearing, obese Eyes: PERRL Ears, Nose, Mouth, Throat: hearing normal Cardiovascular: regular rate and rhythym Respiratory: no respiratory distress Gastrointestinal: normoactive bowel sounds Genitourinary: sampson in urethra Skin: warm Musculoskeletal: other (r bka with dressing in place) Neurologic: AAOx3 Psychiatric: interacting appropriately ICD10 Worksheet Patient Problems: Problems Problem Status Onset Cellulitis of foot, right Acute Methicillin resistant Staphylococcus aureus infection Acute ~03/04/17 Osteomyelitis of right foot Acute Severe sepsis Acute Abscess of left leg Acute Altered mental status Acute Anemia Acute Cellulitis in diabetic foot Acute Cellulitis of lower extremity Acute Failure to thrive Acute Fever Acute Lower limb ulcer, heel or midfoot Acute MRSA (methicillin resistant Staphylococcus aureus) Acute 10/10/14 Osteomyelitis of ankle or foot, right, acute Acute Sepsis Acute Uremia Acute
[2017-03-21] MEDS ORDERED: PSEUDOEPHEDRINE HCL 30 MG TAB PO PRN (12:39)
[2017-03-21] MEDS: CARBAMIDE PEROXIDE 15 ML BOTTLE RTEAR SCH ×2 (14:03→22:12)
--- NOTE | 2017-03-21 15:00 | ASMTCMCOM ---
CM Note CM Note Notes: CM spoke w/ Daija DIET ATTENDANT regarding d/c POC. Pt is requesting to transfer to another buttermaker helper care facility. CM met w/ pt and informed her that although CM supports her in this decision, pt needs to request this transfer through [facility]. [facility] d/c for tomorrow back to [facility]. CM informed Elidia at [facility] of this info. Elidia will set up transportation. CM to follow. Date Signed: 03/21/2017 02:59 PM Electronically Signed By:CLAUDY Jimenez
[2017-03-21] MEDS: HYDROmorphONE/DILAUDID 4 MG TAB PO PRN ×2 (16:00→22:12)
[2017-03-21] MEDS: ACETAMINOPHEN 325 MG TAB PO PRN (17:11)
[2017-03-21] MEDS: traZODone 50 MG TAB PO SCH (22:11)
[2017-03-21] MEDS: MELATONIN 3 MG TAB PO SCH (22:12)
[2017-03-21] MEDS: PATCH REMOVAL 1 EA PATCH TD SCH (23:21)
[2017-03-22] MEDS: DICLOFENAC SODIUM 1% 100 GM GEL TP SCH (03:46)
[2017-03-22] MEDS: HYDROmorphONE/DILAUDID 4 MG TAB PO PRN ×2 (05:31→14:03)
--- NOTE | 2017-03-22 05:33 | GCON ---
[f rep st] CONSULTATION DATE OF CONSULTATION: 03/10/2017 HISTORY OF PRESENT ILLNESS: Patient is a 56-year-old diabetic, who has severe bilateral Charcot defo rmities of both feet. The right foot, however, has an open ulceration and osteomyelitis of the calca neus. She has had at least 3 episodes of sepsis secondary to this calcaneal wound, which is not heal ing well. She also has a lot of edema and swelling in her lower extremity and had cellulitis early o n in her course. I was consulted for evaluation for [id number] amputation. The leg is quite sen sitive. She does have some weak pedal pulses in her right foot with this open ulceration extending i nto the exposed calcaneus. PAST MEDICAL HISTORY: Diabetes, this chronic calcaneal wound with osteomyelitis, hypertension, some COPD for which she uses supplemental oxygen, obesity, sleep apnea, chronic narcotic dependency and us e, history of sarcoidosis, some mild renal insufficiency. ALLERGIES: None. NEW MEDICATIONS: Present medicines include Dilaudid, Dulcolax, insulin, gabapentin, aspirin, nystati n, omeprazole, DuoNeb, Phenergan, and Motrin. FAMILY HISTORY: Noncontributory. REVIEW OF SYSTEMS: Reveals no major additional health issues other than related to the past history and HPI. PHYSICAL EXAMINATION: GENERAL: Reveals an alert, overweight 56-year-old female, in no acute distres s. HEAD/NECK: Reveals no icterus. No adenopathy. No oral lesions. Pupils are normal. Neck is swann pple. There are no bruits. CHEST: Clear and symmetric. CARDIAC: Reveals a regular rhythm. ABDOM EN: Soft, nontender, without obvious masses or hernias. EXTREMITIES: Reveal present pedal pulses b ut decreased. She has bilateral Charcot deformities of both legs. She has an open heel wound on the right foot with ulceration and exposed bone. She has a marked amount of swelling in the right leg c ompared to the left with very faint old changes of cellulitis extending up the lateral aspect of her right leg. This appears to be mostly resolving. NEUROLOGIC: Physiologic. PSYCH: Reveals the decaln ent was alert, cooperative, and oriented. IMPRESSION: Repeated sepsis secondary to calcaneal wounds and osteomyelitis of the right foot. Beth use of her major foot deformities, I think that a BK amputation may be her best bet, and she is accep ting and wishing to progress with that. Risks and options have been fully discussed. PLAN: Continue IV antibiotics and medical care and a BK amputation when medically stable. /[id number]/MODL
[2017-03-22] MEDS: PATCH REMOVAL 1 EA PATCH TD SCH (05:40)
[2017-03-22 08:14] VITALS: PULSE 73; RESP 18; TEMP 97.7; O2SAT 98
--- NOTE | 2017-03-22 08:51 | HOSPPROG ---
Hospitalist Progress Note Assessment/Plan: Patient is a 56-year-old female with a history of diabetes and chronic right lower extremity diabetic ulcer associated with Charcot foot who was brought to [facility] from [facility] with altered mental status and tachycardia. At that time she was found on the floor unresponsive except for moaning to painful stimuli. She was given 2 doses of Narcan with minimal response. She had a head CT that showed no acute focal abnormalities. It was noted that she had severe sepsis with multiorgan failure due to right foot cellulitis. * severe sepsis with multiorgan failure which has now resolved, secondary to right foot cellulitis myositis MRSA, Proteus and group a strep * right foot cellulitis status post a BKA she has completed her antibiotic course for bacteremia analysis analyst placed/ care per surgical team * respiratory arrest on admission has underlying COPD with chronic hypoxemic respiratory failure *DM2 on Lantus and sliding scale stable today * acute kidney injury on chronic kidney disease * metabolic encephalopathy resolved * anemia transfuse 2 units of blood * COPD chronically on 4 L of oxygen * morbid obesity with a BMI 44 * chronic pain on continuous chronic opiates * constipation resolved *sinus pain Sudafed ordered *Plan: dc to [facility]/ patient prefers not to go there, but do not have options at this time/CM spoke w her yesterday about this. She is agreeable to go there today. Subjective: Priscilla is c/o bump on her back that is itching. Objective: Vital Signs Temp Pulse Resp BP Pulse Ox 36.5 C 73 18 153/84 H 98 03/22/17 08:00 03/22/17 08:00 03/22/17 08:00 03/22/17 08:00 03/22/17 08:00 Laboratory Results 03/21/17 06:20 03/21/17 06:20 03/21/17 03/22/17 03/23/17 05:59 05:59 05:59 Intake Total 800 Output Total 2800 3200 Balance -2800 -2400 PT 14.1 SEC (12.0-15.0) 03/04/17 08:50 INR 1.10 (0.83-1.16) 03/04/17 08:50 - Physical Exam Constitutional: chronically ill appearing, obese, uncomfortable Eyes: PERRL Ears, Nose, Mouth, Throat: hearing normal Cardiovascular: regular rate and rhythym Respiratory: no respiratory distress, reduced air movement (bibas) Gastrointestinal: normoactive bowel sounds Genitourinary: sampson in urethra Skin: warm, other (r bka with dressing in place) Musculoskeletal: generalized weakness Neurologic: AAOx3 Psychiatric: interacting appropriately ICD10 Worksheet Patient Problems: Problems Problem Status Onset Cellulitis of foot, right Acute Methicillin resistant Staphylococcus aureus infection Acute ~03/04/17 Osteomyelitis of right foot Acute Severe sepsis Acute Abscess of left leg Acute Altered mental status Acute Anemia Acute Cellulitis in diabetic foot Acute Cellulitis of lower extremity Acute Failure to thrive Acute Fever Acute Lower limb ulcer, heel or midfoot Acute MRSA (methicillin resistant Staphylococcus aureus) Acute 10/10/14 Osteomyelitis of ankle or foot, right, acute Acute Sepsis Acute Uremia Acute
--- NOTE | 2017-03-22 09:17 | SOAPPROG ---
SOAP Progress Note Assessment/Plan: Assessment/Plan: 56 Y obese F hx chronic opioid use s/p R BKA for osteomyelitis , cellulitis, Charcot foot deformity, large calcaneal ulcer. 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 Wound intact. Some dusky redness of flap but patient had good blood supply at surgery--will monitor but not overly concerning now. Proximal erythema improved. Ok from surgical standpoint for discharge. Will add info to d/c plan. 03/22/17 09:16 Objective: Vital Signs Temp Pulse Resp BP Pulse Ox 36.5 C 73 18 153/84 H 98 03/22/17 08:00 03/22/17 08:00 03/22/17 08:00 03/22/17 08:00 03/22/17 08:00 Laboratory Results 03/21/17 06:20 03/21/17 06:20 03/21/17 03/22/17 03/23/17 05:59 05:59 05:59 Intake Total 800 Output Total 2800 3200 Balance -2800 -2400 PT 14.1 SEC (12.0-15.0) 03/04/17 08:50 INR 1.10 (0.83-1.16) 03/04/17 08:50 ICD10 Worksheet Patient Problems: Problems Problem Status Onset Cellulitis of foot, right Acute Methicillin resistant Staphylococcus aureus infection Acute ~03/04/17 Osteomyelitis of right foot Acute Severe sepsis Acute Abscess of left leg Acute Altered mental status Acute Anemia Acute Cellulitis in diabetic foot Acute Cellulitis of lower extremity Acute Failure to thrive Acute Fever Acute Lower limb ulcer, heel or midfoot Acute MRSA (methicillin resistant Staphylococcus aureus) Acute 10/10/14 Osteomyelitis of ankle or foot, right, acute Acute Sepsis Acute Uremia Acute
[2017-03-22] MEDS: LOSARTAN POTASSIUM 25 MG TAB PO SCH (09:43)
[2017-03-22] MEDS: GABAPENTIN 300 MG CAP PO SCH (09:45)
[2017-03-22] MEDS: DULoxetine 30 MG CAP PO SCH (09:46)
[2017-03-22] MEDS: PREGABALIN 50 MG CAP PO SCH (09:46)
[2017-03-22] MEDS: GABAPENTIN 400 MG CAP PO SCH (09:46)
[2017-03-22] MEDS: LEVOTHYROXINE 200 MCG TAB PO SCH (09:47)
[2017-03-22] MEDS: PANTOPRAZOLE SODIUM 40 MG TAB PO SCH (09:47)
[2017-03-22] MEDS: CITALOPRAM 20 MG TAB PO SCH (09:47)
[2017-03-22] MEDS: INSULIN GLARGINE 100 UNITS/ML SYRINGE SC SCH (09:48)
[2017-03-22] MEDS: INSULIN REGULAR HUMAN 100 UNIT/ML SC SCH (09:48)
[2017-03-22] MEDS: HYDROmorphONE/DILAUDID 4 MG TAB PO SCH (09:49)
[2017-03-22] MEDS: LIDOCAINE 5% 1 EA PATCH TD SCH (09:50)
[2017-03-22] MEDS: ENOXAPARIN 40 MG/0.4 ML SYR SC SCH (09:51)
[2017-03-22 10:14] VITALS: BP 153/70
--- NOTE | 2017-03-22 11:11 | PDIAF ---
- Diagnosis Diagnosis: sepsis w multiorgan failure/ resp arrest, right BKA amputation Code Status: Full Code - Medication Management Discharge Medications: Medications to Continue on Transfer Acetaminophen [Tylenol 325mg (*)] 325 mg PO Q6 PRN 11/01/16 [Last Taken 10/30/16 ] DULoxetine [Cymbalta 30 MG (*)] 30 mg PO BID 11/01/16 [Last Taken 03/03/17] Gabapentin [Neurontin 300 MG (*)] 300 mg PO BID 11/01/16 [Last Taken 03/03/17] HYDROmorphone HCL [Dilaudid 4 mg (*)] 10 mg PO [id number] 11/01/16 [Last Taken 03/02/17] Insulin Detemir [Levemir] 50 unit SQ DAILY 11/01/16 [Last Taken 03/03/17] Levothyroxine [Synthroid 200 mcg (*)] 200 mcg PO DAILY 11/01/16 [Last Taken ] Losartan Potassium [Cozaar 25 mg (*)] 25 mg PO DAILY 11/01/16 [Last Taken ] Pregabalin [Lyrica 50mg (*)] 50 mg PO TID 11/01/16 [Last Taken 03/03/17] clonazePAM [Klonopin (*)] 0.5 mg PO BID PRN 11/01/16 [Last Taken 03/03/17] traZODone [traZODONE 50MG (*)] 50 mg PO HS 11/01/16 [Last Taken 03/03/17] Furosemide [Lasix 20 MG (*)] 20 mg PO BID #60 tab 11/12/16 [Last Taken 03/03/17] Alteplase [Cathflo Activase 2 mg (*)] 2 mg IVP DAILY PRN 03/04/17 [Last Taken Unknown] Aspirin [Aspirin 81mg (*)] 81 mg PO DAILY 03/04/17 [Last Taken 03/03/17] Bisacodyl [Dulcolax] 10 mg RC DAILY PRN 03/04/17 [Last Taken Unknown] Calcium Carbonate [Tums 500MG (*)] 1,000 mg PO Q4H PRN 03/04/17 [Last Taken Unknown] Diclofenac Sodium 1% [Voltaren Gel (*)] 2 gm TP QID 03/04/17 [Last Taken ] Gabapentin [Neurontin 400 MG (*)] 400 mg PO BID 03/04/17 [Last Taken 03/03/17] HYDROmorphone HCL [Dilaudid 4 mg (*)] 8 mg PO Q4H PRN 03/04/17 [Last Taken 03/03] Ibuprofen [Motrin (*)] 600 mg PO Q8H PRN 03/04/17 [Last Taken 03/01/17] Insulin Lispro [humALOG LISPRO 100 units/ml (*)] 5 unit SC TIDMEAL 03/04/17 [ Last Taken 03/03/17] Insulin Lispro [humALOG LISPRO 100 units/ml (*)] 5 unit SC TIDMEAL PRN 03/04/17 [Last Taken 03/03/17] Ipratropium/Albuterol [Duoneb (*)] 3 ml IH Q6H PRN 03/04/17 [Last Taken Unknown] Magnesium Hydroxide [Milk of Magnesia] 30 ml PO DAILY PRN 03/04/17 [Last Taken Unknown] Nystatin Powder [Mycostatin Powder] 1 abi TP Q8H PRN 03/04/17 [Last Taken Unknown] Omeprazole Magnesium [Prilosec Otc] 20 mg PO DAILY 03/04/17 [Last Taken 03/03/17 ] Phenylephrine/Shk Lv/Mo/Pet,Wh [Preparation H Oint] 1 abi LA Q6H PRN 03/04/17 [ Last Taken 02/20/17] Polyethylene Glycol 3350 [Miralax 17 gm (*)] 17 gm PO BID PRN 03/04/17 [Last Taken 02/20/17] Promethazine HCl [Phenergan 25mg (*)] 25 mg PO BID PRN 03/04/17 [Last Taken ] Sennosides/Docusate Sodium [Senna-Docusate Sodium Tablet] 2 tab PO BID PRN 03/04 [Last Taken Unknown] Acetaminophen [Tylenol 325mg (*)] 650 mg PO Q4 PRN tab 03/22/17 [Last Taken Unknown] Acetaminophen [Tylenol Rectal] 650 mg LA Q4 PRN supp 03/22/17 [Last Taken Unknown] Carbamide Peroxide [Debrox Ear drops (*)] 5 drop RTEAR BID bottle 03/22/17 [ Last Taken Unknown] Citalopram [CeleXA 20 MG] 20 mg PO DAILY tab 03/22/17 [Last Taken Unknown] Insulin Detemir [Levemir] 35 unit SQ HS #0 03/22/17 [Last Taken 03/03/17] Lidocaine 5% [Lidoderm 5% Patch (*)] 2 ea TD DAILY patch 03/22/17 [Last Taken Unknown] Melatonin [Melatonin 3 MG (*)] 3 mg PO HS tab 03/22/17 [Last Taken Unknown] Patch Removal 1 ea TD DAILY21 patch 03/22/17 [Last Taken Unknown] Polyethylene Glycol 3350 [Miralax 17 gm (*)] 17 gm PO BID PRN pkt 03/22/17 [ Last Taken Unknown] fentaNYL [Duragesic 100 MCG Patch (*)] 100 mcg TD Q72H patch 03/22/17 [Last Taken Unknown] Discharge Medications: Refer to the Discharge Home Medication list for PRN reason. - Orders Services needed: Physical Therapy, Occupational Therapy Oxygen: 4 liters Diet Recommendation: ADA 1800 consistent carb Diet Texture: Regular Texture Diet Wound Care Instructions: Recommend wearing orthopedic podiatrist except for showering. Ok to get BKA incision wet in shower but avoid submerging in water, ie. pool or bath. Change dressing at least qod. May use nonadherent base layer like xeroform, vaseline gauze or adaptic, then gauze and kerlix (or other thin gauze wrap). Additional: Levemir dose at night has been decreased to 35 units from 65 units, Fentanyl patch was increase to 100 mcg from 75 mcg. New medication for her is Celexa. - Labs/Radiology BMP Date: 03/26/17 CBC Date: 03/26/17 - Follow Up Care Current Providers and Referrals: Adonis Tellse MD [Medical Doctor] - follow up in 2 weeks Patient,NotPresent [Unknown] - As per Instructions
--- NOTE | 2017-03-22 12:04 | GDS ---
[f rep st] DISCHARGE SUMMARY DISCHARGE DIAGNOSES: 1. Severe sepsis with multiorgan failure secondary to a right foot cellulitis, myositis. 2. Right foot cellulitis, status post [id number] amputation. 3. Respiratory arrest on admission. 4. Diabetes type 2. 5. Acute kidney injury on chronic kidney disease. 6. Metabolic encephalopathy. 7. Anemia. 8. Chronic obstructive pulmonary disease. 9. Morbid obesity with a body mass index of 44. 10. Chronic pain on continuous chronic opiates. 11. Constipation. 12. Sinus pain. CONSULTATIONS: During her stay: 1. Dr. Fany Blue. 2. Dr. Alirio Mack. 3. Dr. Lawrence Wynn. 4. Dr. Adonis Telles. Briefly, the patient is a 56-year-old female with a history of diabetes and chronic right lower extremity diabetic ulcer associated with Charcot foot. She was brought to [facility] from [facility] with altered mental status and tachycardia. At that time, she was found on the floor unresponsive except moaning to painful stimuli. She was given 2 doses of Narcan with minimal response. At that time, she had a head CT that showed no acute focal abnormalities. On admission, it was noted that she had severe sepsis with multiorgan failure due to the right foot cellulitis. During her stay, she had a BKA to the right foot. She has markedly improved. She has finished her treatment with IV antibiotics. The plan is for her to be discharged to [facility] today and further follow up with Dr. Telles in the outpatient setting. HOSPITAL COURSE: 1. Severe sepsis with multiorgan failure. This has resolved. This is secondary to her right foot cellulitis, myositis. 2. Right foot cellulitis. She is status post BKA. She has completed her antibiotic course for the bacteremia. She has a tool and die machinist placed on. 3. Respiratory arrest on admission: Suspect this was secondary from her narcotics. Her fentanyl patch was increased from 75 mcg to 100 mcg to get good pain control with her recent surgery. Oxygen levels have been stable. 4. Diabetes type 2 on sliding scale and long-acting insulin. 5. Acute kidney injury on chronic kidney disease, stable. 6. Metabolic encephalopathy, resolved. 7. Anemia. She was transfused 2 units of packed red blood cells during her stay. 8. Chronic obstructive pulmonary disease at her baseline. She is chronically on 4 L of oxygen. 9. Morbid obesity with a BMI of 44. This makes it difficult for her to ambulate. 10. Chronic pain on continuous chronic opiates. Her home medications have been resumed with a higher dose of the fentanyl patch. 11. Constipation, resolved. 12. Sinus pain, resolved. CONDITION AT DISCHARGE: Stable. Blood pressure is 153/70, heart rate is 73, respiratory rate is 18, O2 saturation on 4 L are 98%, temperature is 36.5 Celsius. MEDICATIONS AT DISCHARGE: Please see the EMR. Changes in her medications include adding Celexa. Fentanyl dose has been increased from 75 mcg to 100 mcg. Levemir has been decreased from 65 units to 35 units q.h.s. This will be written in detail in the interagency form. DISCHARGE INSTRUCTIONS: 1. To follow up with Dr. Telles as planned. 2. Will recommend wearing the tool and die machinist except for showering. It is okay to get her incision wet in the shower, but avoid submerging in water. The dressings needs to be changed at least every other day. This has been written out. Greater than 30 minutes in discharging and coordinating her care. /[id number]/MODL MTDD
--- NOTE | 2017-03-22 12:19 | ASMTCMCOM ---
CM Note CM Note Notes: D/w PRODUCTION SUPERVISOR, final orders faxed. Elidia at notified, pear picker with [facility] at 2pm, RN to call report. Date Signed: 03/22/2017 12:19 PM Electronically Signed By:Felecia Black RN
[2017-03-22] MEDS: fentaNYL 100 MCG PATCH TD SCH (14:04)
== END 2017-03-22 14:30 | DRG 853 ==
LOC: EDUNIT# → F2N 10:47 → F1N 03-06 13:02 → F3E 03-13 12:11
PROVIDERS: ADMIT Student in an Organized Health Care Education/Training Program; ATTEND Internal Medicine
PROC: 009U3ZX Drainage of Spinal Canal, Percutaneous Approach, Diagnostic (ICD-10-PCS; 2017-03-04)
PROC: 30233N1 Transfusion of Nonautologous Red Blood Cells into Peripheral Vein, Percutaneous Approach (ICD-10-PCS; 2017-03-09)
PROC: 0Y6H0Z1 Detachment at Right Lower Leg, High, Open Approach (ICD-10-PCS; principal; 2017-03-13 08:15)
DX: A40.0 Sepsis due to streptococcus, group A (principal); R65.20 Severe sepsis without septic shock; E11.69 Type 2 diabetes mellitus with other specified complication; E11.621 Type 2 diabetes mellitus with foot ulcer; L97.418 Non-pressure chronic ulcer of right heel and midfoot with other specified severity; L89.613 Pressure ulcer of right heel, stage 3; L03.115 Cellulitis of right lower limb; M60.9 Myositis, unspecified; M86.671 Other chronic osteomyelitis, right ankle and foot; B95.62 Methicillin resistant Staphylococcus aureus infection as the cause of diseases classified elsewhere; B96.4 Proteus (mirabilis) (morganii) as the cause of diseases classified elsewhere; N17.9 Acute kidney failure, unspecified; G93.41 Metabolic encephalopathy; J96.22 Acute and chronic respiratory failure with hypercapnia; G89.29 Other chronic pain; F11.20 Opioid dependence, uncomplicated; D62 Acute posthemorrhagic anemia; E66.01 Morbid (severe) obesity due to excess calories; Z68.41 Body mass index [BMI] 40.0-44.9, adult; E11.618 Type 2 diabetes mellitus with other diabetic arthropathy; J44.9 Chronic obstructive pulmonary disease, unspecified; E11.22 Type 2 diabetes mellitus with diabetic chronic kidney disease; N18.9 Chronic kidney disease, unspecified; E11.649 Type 2 diabetes mellitus with hypoglycemia without coma; G62.9 Polyneuropathy, unspecified; G47.33 Obstructive sleep apnea (adult) (pediatric); B37.2 Candidiasis of skin and nail; K59.00 Constipation, unspecified; R51 Headache; Z79.4 Long term (current) use of insulin; Z99.81 Dependence on supplemental oxygen
CPT/HCPCS: 82784-90; 82947-QW; 96365; 97110-GO; 97110-GP; 97162-GP; 97164-GP; 97166-GO; 97168-GO; 97530-GO; 97530-GP; 97535-GO; A9585; G0008; G8978-GP-CJ; G8978-GP-CK; G8979-GP-CI; G8987-GO-CJ; G8987-GO-CK; G8987-GO-CM; G8988-GO-CJ; G8988-GO-CK; G8989-GO-CJ; J0171; J0330; J0696; J0878; J1170; J1642; J1650; J1815; J1940; J2185; J2250; J2405; J2704; J2997; J3010; J3370; P9016